=== PATIENT | female | born 1940 | race African-American/Black ===

== ENCOUNTER 2018-05-03 21:46 | Inpatient (IN) | payer MEDICARE, OTHER ==
[~2018-05-03] VITALS: Ht 162.6 cm; Wt 87.3 kg
[~2018-05-03 21:46] MED LIST: CARVEDILOL3.125 MG ORAL; FERROUS SULFAT325 MG ORAL; FUROSEMIDE20 M1 ORAL; LORATADINE10 M1 PO; OMEPRAZOLE20 M3 ORAL; RIFAMPIN300 MG PO; SIMVASTATIN40 MG ORAL; WARFARIN SODIUM10 MG ORAL; WARFARIN SODIUM4 MG ORAL
--- NOTE | 2018-05-03 21:51 | Emergency Room Report ---
History of Present Illness General Chief Complaint: Dyspnea/Respdistress Source: Patient Present Illness HPI Patient is an 78-year-old female sent in from [facility] after increased difficulty breathing. Patient had prior history of dialysis as well as COPD. She reportedly became increasing short of breath today. Patient was noted to be satting well. EMS. The patient was noted to have dialysis yesterday. Allergies: Coded Allergies: No Known Allergies (Verified , 01/09/09) Patient History Past Medical History: see triage record Last Menstrual Period: n/a Reviewed Nursing Documentation: PMH: Agreed; PSxH: Agreed Nursing Documentation-PMH Past Medical History: No History, Except For Hx Hypertension: Yes Hx COPD: Yes Hx Cancer: No Hx Dialysis: Yes - AV fistula, ESRD Hx Neurological Problems: No Review of Systems All Other Systems: negative except mentioned in HPI Physical Exam Vital Signs Date Time Temp Pulse Resp B/P (MAP) Pulse Ox O2 Delivery O2 Flow Rate FiO2 05/03/18 21:40 99.2 132 22 146/92 94 Room Air 99.1 Sp02 EP Interpretation: reviewed, normal General Appearance: normal inspection, alert, obese, Chronically Ill Head: atraumatic ENT: normal ENT inspection, hearing grossly normal, normal voice Neck: normal inspection, supple, no bony tend, limited range of motion Respiratory: normal inspection, normal breath sounds, wheezing Cardiovascular #1: regular rate, rhythm, edema Gastrointestinal: normal inspection, normal bowel sounds, non tender, soft, no guarding, no hernia Genitourinary: no CVA tenderness Musculoskeletal: normal inspection, back normal, normal range of motion Neurologic: normal inspection, alert, responsive, motor weakness - right lower extremity Psychiatric: normal inspection, judgement/insight normal, mood/affect normal Skin: normal inspection, no rash Medical Decision Making Diagnostic Impression: Primary Impression: COPD exacerbation Additional Impression: ESRD on dialysis ER Course patient presented for shortness of breath. Differential included but was not limited to anemia, pneumonia, pneumothorax, myocardial infarction, pericardial effusion, congestive heart failure, acidosis. Because of complexity of patient' s case laboratory testing and imaging studies were ordered. Laboratory testing showed evidence of renal disease.The patient was given breathing treatments. She started on IV steroids. The patient is noted be on dialysis. Chest x-ray one view interpreted by me showed cardiomegaly without evident effusion or infiltrate. Dr. Leonardo was contacted due to care physician. This report is dictated with [employer] developer software which may occasionally lead to discrepancies related to use of this software. Labs Test 05/03/18 21:55 White Blood Count 5.8 K/UL (4.8-10.8) Red Blood Count 2.99 M/UL (4.20-5.40) Hemoglobin 8.7 G/DL (12.0-16.0) Hematocrit 28.7 % (37.0-47.0) Mean Corpuscular Volume 96 FL (80-99) Mean Corpuscular Hemoglobin 29.1 PG (27.0-31.0) Mean Corpuscular Hemoglobin Concent 30.3 G/DL (32.0-36.0) Red Cell Distribution Width 15.1 % (11.6-14.8) Platelet Count 138 K/UL (150-450) Mean Platelet Volume 7.2 FL (6.5-10.1) Neutrophils (%) (Auto) 55.8 % (45.0-75.0) Lymphocytes (%) (Auto) 24.6 % (20.0-45.0) Monocytes (%) (Auto) 12.7 % (1.0-10.0) Eosinophils (%) (Auto) 5.5 % (0.0-3.0) Basophils (%) (Auto) 1.3 % (0.0-2.0) Prothrombin Time 11.9 SEC (9.30-11.50) Prothromb Time International Ratio 1.1 (0.9-1.1) Activated Partial Thromboplast Time 31 SEC (23-33) Sodium Level 138 MMOL/L (136-145) Potassium Level 5.1 MMOL/L (3.5-5.1) Chloride Level 103 MMOL/L (98-107) Carbon Dioxide Level 27 MMOL/L (21-32) Anion Gap 8 mmol/L (5-15) Blood Urea Nitrogen 24 mg/dL (7-18) Creatinine 4.5 MG/DL (0.55-1.30) Estimat Glomerular Filtration Rate mL/min (>60) Glucose Level 207 MG/DL (74-106) Lactic Acid Level 1.90 mmol/L (0.4-2.0) Calcium Level 8.6 MG/DL (8.5-10.1) Total Bilirubin 0.9 MG/DL (0.2-1.0) Aspartate Amino Transf (AST/SGOT) 30 U/L (15-37) Alanine Aminotransferase (ALT/SGPT) 12 U/L (12-78) Alkaline Phosphatase 375 U/L (46-116) Total Creatine Kinase 42 U/L (26-308) Creatine Kinase MB 1.2 NG/ML (0.0-3.6) Creatine Kinase MB Relative Index 2.8 Troponin I 0.267 ng/mL (0.000-0.056) Total Protein 6.8 G/DL (6.4-8.2) Albumin 2.4 G/DL (3.4-5.0) Globulin 4.4 g/dL Albumin/Globulin Ratio 0.5 (1.0-2.7) Last Vital Signs Date Time Temp Pulse Resp B/P (MAP) Pulse Ox O2 Delivery O2 Flow Rate FiO2 05/03/18 21:40 99.2 132 22 146/92 94 Room Air 99.1 Status: improved Disposition: HOME, SELF-CARE Condition: Stable Darryl Koenig MD May 03, 2018 21:51
[2018-05-03 22:00] VITALS: BP 144/80
[2018-05-03] MEDS ORDERED: Albuterol/Ipratropium 3ml neb HHN ONE (22:00)
[2018-05-03 22:22] LABS: BASOPHILS % (AUTO) 1.3 % (0.0-2.0); EOSINOPHILS % (AUTO) 5.5 % (0.0-3.0); HEMATOCRIT 28.7 % (37.0-47.0); HEMOGLOBIN 8.7 G/DL (12.0-16.0); LYMPHOCYTES % (AUTO) 24.6 % (20.0-45.0); MEAN CORPUSCULAR VOLUME 96 FL (80-99); MONOCYTES % (AUTO) 12.7 % (1.0-10.0); NEUTROPHILS % (AUTO) 55.8 % (45.0-75.0); PLATELET COUNT 138 K/UL (150-450); RED BLOOD COUNT 2.99 M/UL (4.20-5.40); RED CELL DISTRIBUTION WIDTH 15.1 % (11.6-14.8); WHITE BLOOD COUNT 5.8 K/UL (4.8-10.8)
[2018-05-03 22:26] LABS: INR 1.1 (0.9-1.1)
[2018-05-03 22:29] LABS: ANION GAP 8 mmol/L (5-15); BLOOD UREA NITROGEN 24 mg/dL (7-18); CALCIUM 8.6 MG/DL (8.5-10.1); CARBON DIOXIDE 27 MMOL/L (21-32); CHLORIDE 103 MMOL/L (98-107); CREATININE 4.5 MG/DL (0.55-1.30); POTASSIUM 5.1 MMOL/L (3.5-5.1); SODIUM 138 MMOL/L (136-145)
[2018-05-03 22:44] LABS: ALANINE AMINOTRANSFERASE 12 U/L (12-78); ALBUMIN 2.4 G/DL (3.4-5.0); ALBUMIN/GLOBULIN RATIO 0.5 (1.0-2.7); ALKALINE PHOSPHATASE 375 U/L (46-116); ASPARTATE AMINO TRANSFERASE 30 U/L (15-37); BILIRUBIN,TOTAL 0.9 MG/DL (0.2-1.0); CKMB 1.2 NG/ML (0.0-3.6); CREATINE KINASE 42 U/L (26-308)
[2018-05-03] MEDS ORDERED: DUONEB 0.5-3(2.53 ML HHN (23:54)
[2018-05-03] MEDS ORDERED: NORCO 5-325 TA1 EACH ORAL (23:54)
[2018-05-03] MEDS ORDERED: NEPHROVITE1 TAB ORAL (23:54)
[2018-05-04] VITALS (8 sets, daily range): BP systolic 90–138; BP diastolic 58–86
[2018-05-04] MEDS ORDERED: Albuterol ud Inhalation HHN ONE (00:15)
[2018-05-04] MEDS ORDERED: Ipratropium 0.02% Inh Soln 2.5ml UD HHN PRN (03:15)
[2018-05-04] MEDS: Albuterol/Ipratropium 3ml neb HHN SCH ×2 (08:10→19:00)
[2018-05-04] MEDS ORDERED: Heparin Sod 1000 units/ml 10ml IV SCH (09:00)
[2018-05-04] MEDS ORDERED: Heparin 1000 units/ml 1ml Vial INJ SCH (09:00)
[2018-05-04] MEDS: Norco 5mg/325mg tab ORAL PRN ×2 (09:25→22:39)
[2018-05-04] MEDS: Nephrovite tab (Rena-Vite) ORAL SCH (09:28)
--- NOTE | 2018-05-04 11:20 | Diagnostic Imaging Report ---
Indication: Shortness of breath Technique: One view of the chest Comparison: 03/03/2010 Findings: Interim placement of a left chest unifocal AICD. Interim placement of right jugular tunneled dialysis catheter. Interim development of bilateral pleural effusions, left greater than right. There is bilateral interstitial edema and left perihilar atelectatic change. The heart is enlarged, apparently more so than on the prior study. Impression: Cardiomegaly with evidence of congestive heart failure and bilateral pleural effusions Pacemaker and tunneled dialysis catheter, new since prior exam of 2009
--- NOTE | 2018-05-04 12:49 | Consultation ---
Consult Note Consult Note 78-year-old female sent in from nursing with increased difficulty breathing. patient has dialysis as well as COPD. Patient with increasing short of breath. Patient currently undergoing dialysis yesterday. patient with prior history of pleural effusions. Allergies: No Known Allergies (Verified Allergy, Mild, 01/09/09) Past Medical History: COPD, ESRD, pleural effusion, AV fistula Past surgical history: AV fistula Medications/allergies: reviewed Physical WDWN NAD reduced breath sounds bilaterally without rhonchi or wheeze [id number] without RG; murmur NABS nontender no HSM no CC; mild edema nonfocal Labs Test 05/03/18 21:55 White Blood Count 5.8 K/UL (4.8-10.8) Red Blood Count 2.99 M/UL (4.20-5.40) Hemoglobin 8.7 G/DL (12.0-16.0) Hematocrit 28.7 % (37.0-47.0) Mean Corpuscular Volume 96 FL (80-99) Mean Corpuscular Hemoglobin 29.1 PG (27.0-31.0) Mean Corpuscular Hemoglobin Concent 30.3 G/DL (32.0-36.0) Red Cell Distribution Width 15.1 % (11.6-14.8) Platelet Count 138 K/UL (150-450) Mean Platelet Volume 7.2 FL (6.5-10.1) Neutrophils (%) (Auto) 55.8 % (45.0-75.0) Lymphocytes (%) (Auto) 24.6 % (20.0-45.0) Monocytes (%) (Auto) 12.7 % (1.0-10.0) Eosinophils (%) (Auto) 5.5 % (0.0-3.0) Basophils (%) (Auto) 1.3 % (0.0-2.0) Prothrombin Time 11.9 SEC (9.30-11.50) Prothromb Time International Ratio 1.1 (0.9-1.1) Activated Partial Thromboplast Time 31 SEC (23-33) Sodium Level 138 MMOL/L (136-145) Potassium Level 5.1 MMOL/L (3.5-5.1) Chloride Level 103 MMOL/L (98-107) Carbon Dioxide Level 27 MMOL/L (21-32) Anion Gap 8 mmol/L (5-15) Blood Urea Nitrogen 24 mg/dL (7-18) Creatinine 4.5 MG/DL (0.55-1.30) Estimat Glomerular Filtration Rate mL/min (>60) Glucose Level 207 MG/DL (74-106) Lactic Acid Level 1.90 mmol/L (0.4-2.0) Calcium Level 8.6 MG/DL (8.5-10.1) Total Bilirubin 0.9 MG/DL (0.2-1.0) Aspartate Amino Transf (AST/SGOT) 30 U/L (15-37) Alanine Aminotransferase (ALT/SGPT) 12 U/L (12-78) Alkaline Phosphatase 375 U/L (46-116) Total Creatine Kinase 42 U/L (26-308) Creatine Kinase MB 1.2 NG/ML (0.0-3.6) Creatine Kinase MB Relative Index 2.8 Troponin I 0.267 ng/mL (0.000-0.056) Total Protein 6.8 G/DL (6.4-8.2) Albumin 2.4 G/DL (3.4-5.0) Globulin 4.4 g/dL Albumin/Globulin Ratio 0.5 (1.0-2.7) IMPRESSION COPD CHF pulmonary edema pleural effusions bilateral respiratory failure hypoxemia demand ischemia anemia PLAN HD ultrafiltrate respiratory care hold steroids monitor as is for now close follow up of imaging chest Xray reviewed impression, plan, and exam edited and reviewed in detail care discussed with Mohsen Kraft MD May 04, 2018 12:49
[2018-05-04] MEDS: Heparin 5000 units/ml inj SUBQ SCH ×2 (13:01→22:41)
--- NOTE | 2018-05-04 16:15 | History and Physical Report ---
DATE OF ADMISSION: 05/03/2018 CHIEF COMPLAINTS: Shortness of breath. HISTORY OF PRESENT ILLNESS: This is an 78-year-old female, who has an unfortunate combination of congestive heart failure, cardiomyopathy, and end-stage renal failure, who was transferred via 911 from a long term last night to this hospital's emergency department with shortness of breath. She was transferred during the late hours of the night. The patient has had her dialysis on Tuesday, two days ago. The patient usually is admitted to [facility]. PAST MEDICAL HISTORY: 1. End-stage renal failure. 2. Severe cardiomyopathy with ejection fraction in the low 20s. 3. Anemia of chronic kidney disease. 4. Recurrent DVTs. 5. Chronic atrial fibrillation. 6. Coronary artery disease. 7. Crystal arthropathy. 8. class 4 congestive heart failure. 9. Severe peripheral neuropathy. 10. Type 2 diabetes mellitus. 11. Chronic obstructive pulmonary disease. MEDICATIONS: Coreg, DuoNeb, Nephro-Gabriela, Erbacon p.r.n., Epogen on dialysis, oral iron, omeprazole, and simvastatin. ALLERGIES: No known drug allergies. FAMILY HISTORY: Unremarkable. SOCIAL HISTORY: She lives in a long term. HABITS: She is nonsmoker and nondrinker. There is no history of illicit drug abuse. REVIEW OF SYSTEMS: HEENT: Hearing and eyesight are normal. ENDOCRINE: Significant for secondary hyperparathyroidism. She has also type 2 diabetes mellitus. MUSCULOSKELETAL: She has a history of crystal-induced joint disease. CARDIAC: She has severe ischemic cardiomyopathy. NEUROLOGIC: She has history of severe peripheral neuropathy. RESPIRATORY: She has chronic obstructive pulmonary disease. PHYSICAL EXAMINATION: GENERAL: This is an elderly female, who is in no acute distress. VITAL SIGNS: Blood pressure 113/74, pulse 67 and regular, respirations 20, and temperature 97.7. HEENT: The head is normocephalic and atraumatic. Pupils are equal, round, and reactive to light and accommodation consensually. NECK: Supple. Trachea midline. There was no lymphadenopathy or thyromegaly. LUNGS: Bilateral few wheezes. HEART: Regular rate and rhythm without rubs, murmurs, or gallops. ABDOMEN: Soft and nontender. Bowel sounds were active. EXTREMITIES: No clubbing. She has 4+ right leg edema and 3+ right arm edema. NEUROLOGIC: She is alert and oriented x4. Cranial nerves II through XII intact. LABORATORY AND ANCILLARY DATA: Potassium 5.1, sodium 138, BUN 24, and creatinine 4.5. Alkaline phosphatase 375. Albumin 2.4. Troponin level is 0.267. INR 1.1. Hematocrit 28.7, otherwise CBC within normal limits. Chest x-ray reported as a mild congestive heart failure with bilateral pleural effusions. ASSESSMENT: 1. Chronic obstructive pulmonary disease exacerbation. 2. Congestive heart failure. 3. End-stage renal failure. 4. Severe cardiomyopathy with ejection fraction in the low 20s. 5. Anemia of chronic kidney disease. 6. Recurrent DVTs. 7. Chronic atrial fibrillation. 8. Coronary artery disease. 9. Crystal arthropathy. 10. NYHA class 4 congestive heart failure. 11. Severe peripheral neuropathy. 12. Type 2 diabetes mellitus. PLAN: 1. Hemodialysis today with ultrafiltration. 2. Respiratory treatment. 3. Continue long term medications. 4. Rule out acute myocardial ischemia. Cristy Jones M.D. DR: GE[place] JOB#: [id number] CC: LASHONDA
--- NOTE | 2018-05-04 21:23 | Cardiology Progress Note ---
Subjective Subjective [id number] Objective Last 24 Hour Vital Signs Date Time Temp Pulse Resp B/P (MAP) Pulse Ox O2 Delivery O2 Flow Rate FiO2 05/04/18 19:29 92 22 95 Nasal Cannula 2.0 28 05/04/18 19:29 Nasal Cannula 2.0 28 05/04/18 18:00 Nasal Cannula 2.0 05/04/18 16:00 97.9 66 23 90/58 (69) 100 97.9 05/04/18 16:00 67 05/04/18 12:00 73 05/04/18 12:00 98.2 67 17 91/58 (69) 98 98.2 05/04/18 10:24 97.7 05/04/18 09:28 83 138/86 05/04/18 09:25 97.7 05/04/18 09:00 Nasal Cannula 2.0 05/04/18 08:10 Nasal Cannula 2.0 28 05/04/18 08:10 Nasal Cannula 2.0 28 05/04/18 08:00 90 05/04/18 08:00 98.2 83 19 138/86 (103) 98.2 05/04/18 05:01 Nasal Cannula 2.0 05/04/18 04:00 91 05/04/18 04:00 97.7 67 20 113/74 (87) 97 97.7 05/04/18 03:00 97.6 65 20 111/71 (84) 95 97.6 05/04/18 02:00 36.40192 81 22 109/66 96 Room Air 21 208.4 05/04/18 02:00 98.0 81 22 109/66 96 Room Air 21 98.0 05/04/18 00:22 89 22 99 Room Air 21 05/04/18 00:17 94 26 94 Room Air 21 05/04/18 00:00 98.0 88 20 138/78 95 Room Air 21 98.0 05/03/18 22:03 82 20 98 Room Air 21 05/03/18 22:00 81 20 Room Air 21 05/03/18 22:00 99.1 81 20 144/80 95 Room Air 21 99.1 05/03/18 21:57 86 22 95 Room Air 21 05/03/18 21:56 86 22 Room Air 05/03/18 21:40 99.2 132 22 146/92 94 Room Air 99.1 Intake and Output 05/03/18 05/04/18 19:00 07:00 Intake Total 240 ml Balance 240 ml Intake Oral 240 ml # Voids 1 Laboratory Tests Test 05/03/18 21:55 White Blood Count 5.8 K/UL (4.8-10.8) Red Blood Count 2.99 M/UL (4.20-5.40) L Hemoglobin 8.7 G/DL (12.0-16.0) L Hematocrit 28.7 % (37.0-47.0) L Mean Corpuscular Volume 96 FL (80-99) Mean Corpuscular Hemoglobin 29.1 PG (27.0-31.0) Mean Corpuscular Hemoglobin Concent 30.3 G/DL (32.0-36.0) L Red Cell Distribution Width 15.1 % (11.6-14.8) H Platelet Count 138 K/UL (150-450) L Mean Platelet Volume 7.2 FL (6.5-10.1) Neutrophils (%) (Auto) 55.8 % (45.0-75.0) Lymphocytes (%) (Auto) 24.6 % (20.0-45.0) Monocytes (%) (Auto) 12.7 % (1.0-10.0) H Eosinophils (%) (Auto) 5.5 % (0.0-3.0) H Basophils (%) (Auto) 1.3 % (0.0-2.0) Prothrombin Time 11.9 SEC (9.30-11.50) H Prothromb Time International Ratio 1.1 (0.9-1.1) Activated Partial Thromboplast Time 31 SEC (23-33) Sodium Level 138 MMOL/L (136-145) Potassium Level 5.1 MMOL/L (3.5-5.1) Chloride Level 103 MMOL/L (98-107) Carbon Dioxide Level 27 MMOL/L (21-32) Anion Gap 8 mmol/L (5-15) Blood Urea Nitrogen 24 mg/dL (7-18) H Creatinine 4.5 MG/DL (0.55-1.30) H Estimat Glomerular Filtration Rate mL/min (>60) Glucose Level 207 MG/DL (74-106) H Lactic Acid Level 1.90 mmol/L (0.4-2.0) Calcium Level 8.6 MG/DL (8.5-10.1) Total Bilirubin 0.9 MG/DL (0.2-1.0) Aspartate Amino Transf (AST/SGOT) 30 U/L (15-37) Alanine Aminotransferase (ALT/SGPT) 12 U/L (12-78) Alkaline Phosphatase 375 U/L (46-116) H Total Creatine Kinase 42 U/L (26-308) Creatine Kinase MB 1.2 NG/ML (0.0-3.6) Creatine Kinase MB Relative Index 2.8 Troponin I 0.267 ng/mL (0.000-0.056) Total Protein 6.8 G/DL (6.4-8.2) Albumin 2.4 G/DL (3.4-5.0) L Globulin 4.4 g/dL Albumin/Globulin Ratio 0.5 (1.0-2.7) L Megan Arthur MD May 04, 2018 21:23
[2018-05-05] VITALS: BP 95/52
[2018-05-05] MEDS: Albuterol/Ipratropium 3ml neb HHN SCH ×3 (00:58→13:22)
--- NOTE | 2018-05-05 03:45 | Consultation ---
DATE OF CONSULTATION: 05/04/2018 CARDIOLOGY CONSULTATION CONSULTING PHYSICIAN: Megan Arthur M.D. REFERRING PHYSICIAN: Cristy Leonardo M.D. PATIENT IDENTIFYING DATA: This is an 78-year-old black female. REASON FOR EVALUATION: Congestive heart failure. HISTORY OF PRESENT ILLNESS: The patient presented with shortness of breath, wheezing, and cough. She is well known to me, very unfortunate 78-year-old female with end-stage dilated cardiomyopathy with bilateral right and left heart failure and pulmonary edema and also end-stage renal disease. Her cardiomyopathy is nonischemic. She was started on dialysis about 2 months ago when her creatinine started going up. She also has history of abdominal wall hematomas and GI bleed. She had history of embolic event to her leg from atrial fibrillation. She has ICD implanted and she has PermCath on the right side. MEDICATIONS: Carvedilol, Epogen, and pain medications. PAST MEDICAL HISTORY: In addition to the above, significant for crystal arthropathy, anemia, history of diabetes, and COPD. She is in permanent atrial fibrillation. ALLERGIES: Not reported. HABITS: No history of drinking, smoking, or drug abuse. SOCIAL HISTORY: She lives at skilled nursing now. REVIEW OF SYSTEMS: Significant for shortness of breath, wheezing, cough, orthopnea, and generalized edema. PHYSICAL EXAMINATION: GENERAL: This is elderly female, looks really ill. VITAL SIGNS: Blood pressure 90/60, heart rate is 70, oxygen saturation is on 2 liters of oxygen 92%, and temperature 98.2 degrees. HEENT: PERRLA. EOMI. NECK: Her neck veins are very distended. Carotid upstroke is palpable without bruit. LUNGS: She has wheezing and crackles especially posteriorly. HEART: Irregular, extremely distant sounds. Defibrillator site is intact. BREASTS: She has dependent edema. ABDOMEN: Distended with ascites and enlarged liver. EXTREMITIES: She has anasarca around her arms and legs, so her arms and legs have dependent edema. Distal pulses are very diminished. NEUROLOGICAL: She appears to be totally appropriate and without lateralized neurologic deficit. LABORATORY AND DIAGNOSTIC DATA: Her ECG shows atrial fibrillation with very low voltage and intraventricular conduction delay, intermittent alternating with left bundle-branch block. Chest x-ray showed congestive heart failure. The laboratory data significant for WBC 5.8, hemoglobin 8.7, and platelets 138. Creatinine 4.5 and BUN is 24. Lactic acid 1.9. Troponin 0.267. Albumin 2.4. INR is 1.1. IMPRESSION AND RECOMMENDATION: 1. Congestive heart failure, acute on chronic, systolic due to dilated cardiomyopathy, end-stage severe dilated, nonischemic. 2. Atrial fibrillation, permanent, rate controlled, but she is not anticoagulated due to history of GI bleed and also history of abdominal wall hematoma. 3. She also has severe generalized edema and she makes very little urine, so the dialysis also ____ ultrafiltration to drain the fluid out. Unfortunately, this patient in the past did not tolerate GENEVIEVE inhibitors due to hypotension, could not tolerate Entresto due to hypotension and medical management. The prognosis of this patient unfortunately is grave. Thank you very much for your referral. Megan Arthur M.D. DR: CARY JOB#: [id number] CC:
[2018-05-05 04:00] VITALS: BP 96/65
[2018-05-05 08:00] VITALS: BP 98/70
--- NOTE | 2018-05-05 08:00 | Nephrology Progress Note ---
Assessment/Plan Plan Labs reviewed. Trop 0.2 reflects ESRD. Known from before. COPD Exacerbation + CHF resolved + improved with HD yesterday. DC to SNF. Anemia of CKD stable. Has scheduled HD tomorrow. Subjective Subjective No new c/o. SOB resolved. Objective Objective Last 24 Hour Vital Signs Date Time Temp Pulse Resp B/P (MAP) Pulse Ox O2 Delivery O2 Flow Rate FiO2 05/05/18 07:46 84 20 100 Nasal Cannula 2.0 28 05/05/18 07:35 78 20 100 Nasal Cannula 2.0 28 05/05/18 04:00 97.2 57 20 96/65 (75) 99 97.2 05/05/18 04:00 84 05/05/18 00:58 99 20 95 Nasal Cannula 2.0 28 05/05/18 00:58 Nasal Cannula 2.0 28 05/05/18 00:00 98.1 89 24 95/52 (66) 99 98.1 05/05/18 00:00 82 05/04/18 23:29 98 20 99 Nasal Cannula 2.0 28 05/04/18 23:20 99 24 99 Nasal Cannula 2.0 28 05/04/18 21:05 Nasal Cannula 2.0 05/04/18 21:00 Nasal Cannula 2.0 05/04/18 21:00 80 102/64 05/04/18 20:00 98.2 69 26 107/66 (80) 100 98.2 05/04/18 20:00 88 05/04/18 19:29 92 22 95 Nasal Cannula 2.0 28 05/04/18 19:29 Nasal Cannula 2.0 28 05/04/18 18:00 Nasal Cannula 2.0 05/04/18 16:00 97.9 66 23 90/58 (69) 100 97.9 05/04/18 16:00 67 05/04/18 12:00 73 05/04/18 12:00 98.2 67 17 91/58 (69) 98 98.2 05/04/18 10:24 97.7 05/04/18 09:28 83 138/86 05/04/18 09:25 97.7 05/04/18 09:00 Nasal Cannula 2.0 05/04/18 08:10 Nasal Cannula 2.0 28 05/04/18 08:10 Nasal Cannula 2.0 28 05/04/18 08:00 90 05/04/18 08:00 98.2 83 19 138/86 (103) 98.2 Intake and Output 05/04/18 05/05/18 19:00 07:00 Intake Total 100 ml Output Total 4360 ml Balance -4260 ml Intake Oral 100 ml Output Hemodialysis UF 4360 ml # Voids 2 # Bowel Movements 1 Height (Feet): 5 Height (Inches): 4.00 Weight (Pounds): 192 Objective CV Irr/Irr Lungs CTA Abd SNT BS + E less edema Cristy Jones MD May 05, 2018 08:00
[2018-05-05] MEDS: Nephrovite tab (Rena-Vite) ORAL SCH (08:42)
[2018-05-05] MEDS: Heparin 5000 units/ml inj SUBQ SCH (09:00)
--- NOTE | 2018-05-05 10:43 | Pulmonology Progress Note ---
Assessment/Plan Assessment/Plan Pulmonary Progress Note 78-year-old female sent in from nursing with increased difficulty breathing. patient has dialysis as well as COPD. Patient with increasing short of breath. CKD on dialysis. Has prior history of pleural effusions. H/o CHF, COPD Allergies: No Known Allergies (Verified Allergy, Mild, 01/09/09) Past Medical History: COPD, ESRD, pleural effusion, AV fistula Past surgical history: AV fistula Medications/allergies: reviewed Physical WDWN NAD reduced breath sounds bilaterally without rhonchi or wheeze [id number] without RG; murmur NABS nontender no HSM no CC; mild edema nonfocal Labs Test 05/03/18 21:55 White Blood Count 5.8 K/UL (4.8-10.8) Red Blood Count 2.99 M/UL (4.20-5.40) Hemoglobin 8.7 G/DL (12.0-16.0) Hematocrit 28.7 % (37.0-47.0) Mean Corpuscular Volume 96 FL (80-99) Mean Corpuscular Hemoglobin 29.1 PG (27.0-31.0) Mean Corpuscular Hemoglobin Concent 30.3 G/DL (32.0-36.0) Red Cell Distribution Width 15.1 % (11.6-14.8) Platelet Count 138 K/UL (150-450) Mean Platelet Volume 7.2 FL (6.5-10.1) Neutrophils (%) (Auto) 55.8 % (45.0-75.0) Lymphocytes (%) (Auto) 24.6 % (20.0-45.0) Monocytes (%) (Auto) 12.7 % (1.0-10.0) Eosinophils (%) (Auto) 5.5 % (0.0-3.0) Basophils (%) (Auto) 1.3 % (0.0-2.0) Prothrombin Time 11.9 SEC (9.30-11.50) Prothromb Time International Ratio 1.1 (0.9-1.1) Activated Partial Thromboplast Time 31 SEC (23-33) Sodium Level 138 MMOL/L (136-145) Potassium Level 5.1 MMOL/L (3.5-5.1) Chloride Level 103 MMOL/L (98-107) Carbon Dioxide Level 27 MMOL/L (21-32) Anion Gap 8 mmol/L (5-15) Blood Urea Nitrogen 24 mg/dL (7-18) Creatinine 4.5 MG/DL (0.55-1.30) Estimat Glomerular Filtration Rate mL/min (>60) Glucose Level 207 MG/DL (74-106) Lactic Acid Level 1.90 mmol/L (0.4-2.0) Calcium Level 8.6 MG/DL (8.5-10.1) Total Bilirubin 0.9 MG/DL (0.2-1.0) Aspartate Amino Transf (AST/SGOT) 30 U/L (15-37) Alanine Aminotransferase (ALT/SGPT) 12 U/L (12-78) Alkaline Phosphatase 375 U/L (46-116) Total Creatine Kinase 42 U/L (26-308) Creatine Kinase MB 1.2 NG/ML (0.0-3.6) Creatine Kinase MB Relative Index 2.8 Troponin I 0.267 ng/mL (0.000-0.056) Total Protein 6.8 G/DL (6.4-8.2) Albumin 2.4 G/DL (3.4-5.0) Globulin 4.4 g/dL Albumin/Globulin Ratio 0.5 (1.0-2.7) IMPRESSION COPD CHF pulmonary edema pleural effusions bilateral respiratory failure hypoxemia demand ischemia anemia PLAN HD per renal respiratory care hold steroids monitor as is for now close follow up of imaging chest X raynoted impression, plan, and exam edited and reviewed in detail care discussed with RN Subjective ROS Limited/Unobtainable: No Constitutional: Reports: no symptoms Allergies: Coded Allergies: No Known Allergies (Verified , 01/09/09) Objective Last 24 Hour Vital Signs Date Time Temp Pulse Resp B/P (MAP) Pulse Ox O2 Delivery O2 Flow Rate FiO2 05/05/18 10:38 Nasal Cannula 2.0 28 05/05/18 10:38 97 Nasal Cannula 2.0 28 05/05/18 10:38 86 20 Room Air 21 05/05/18 09:00 Nasal Cannula 2.0 05/05/18 08:36 92 98/70 05/05/18 08:00 82 05/05/18 08:00 98.6 92 20 98/70 (79) 98 98.6 05/05/18 07:46 84 20 100 Nasal Cannula 2.0 28 05/05/18 07:35 78 20 100 Nasal Cannula 2.0 28 05/05/18 04:00 97.2 57 20 96/65 (75) 99 97.2 05/05/18 04:00 84 05/05/18 00:58 99 20 95 Nasal Cannula 2.0 28 05/05/18 00:58 Nasal Cannula 2.0 28 05/05/18 00:00 98.1 89 24 95/52 (66) 99 98.1 05/05/18 00:00 82 05/04/18 23:29 98 20 99 Nasal Cannula 2.0 28 05/04/18 23:20 99 24 99 Nasal Cannula 2.0 28 05/04/18 21:05 Nasal Cannula 2.0 05/04/18 21:00 Nasal Cannula 2.0 05/04/18 21:00 80 102/64 05/04/18 20:00 98.2 69 26 107/66 (80) 100 98.2 05/04/18 20:00 88 05/04/18 19:29 92 22 95 Nasal Cannula 2.0 28 05/04/18 19:29 Nasal Cannula 2.0 28 05/04/18 18:00 Nasal Cannula 2.0 05/04/18 16:00 97.9 66 23 90/58 (69) 100 97.9 05/04/18 16:00 67 05/04/18 12:00 73 05/04/18 12:00 98.2 67 17 91/58 (69) 98 98.2 Intake and Output 05/04/18 05/05/18 19:00 07:00 Intake Total 100 ml Output Total 4360 ml Balance -4260 ml Intake Oral 100 ml Output Hemodialysis UF 4360 ml # Voids 2 # Bowel Movements 1 Microbiology Date/Time Source Procedure Growth Status 05/03/18 22:00 Blood Blood Culture - Preliminary NO GROWTH AFTER 24 HOURS Resulted 05/03/18 21:45 Blood Blood Culture - Preliminary NO GROWTH AFTER 24 HOURS Resulted 05/04/18 01:50 Rectum VRE Culture Pending Resulted 05/04/18 01:50 Rectum - Preliminary Resulted Current Medications Medications (Trade) Dose Ordered Sig/Toby Route PRN Reason Start Time Stop Time Status Last Admin Dose Admin Acetaminophen/ Hydrocodone Bitart ([place] 5/325) 1 tab Q6H PRN ORAL For Pain 05/04/18 03:15 05/11/18 03:14 05/04/18 22:39 Albuterol/ Ipratropium (Albuterol/ Ipratropium) 3 ml Q6HRT HHN 05/04/18 07:00 05/09/18 06:59 05/05/18 07:34 Carvedilol (Coreg) 3.125 mg EVERY 12 HOURS ORAL 05/04/18 09:00 06/03/18 08:59 05/04/18 09:28 Epoetin Rodo (Procrit (for ESRD on dialysis)) 8,000 units TUE-TUE-TUE SUBQ 05/05/18 21:00 06/04/18 20:59 Heparin Sodium (Porcine) (Heparin 5000 units/ml) 5,000 units EVERY 12 HOURS SUBQ 05/04/18 11:00 06/03/18 10:59 05/04/18 22:41 Ipratropium [place] (Atrovent) 500 mcg Q4H PRN HHN Shortness of Breath 05/04/18 03:15 05/09/18 03:14 05/04/18 23:30 Vitamin B Complex/ Vit C/Folic Acid (Nephrovite) 1 tab DAILY ORAL 05/04/18 09:00 06/03/18 08:59 05/05/18 08:42 Paramjit Esparza MD May 05, 2018 10:43
[2018-05-05 12:00] VITALS: BP 105/63
[2018-05-05] MEDS ORDERED: Vancomycin 1 GM in D5W 275 ML IVPB ONE (14:00)
--- NOTE | 2018-05-05 15:37 | Cardiology Report ---
APPROVED REPORT EXAM: Two-dimensional and M-mode echocardiogram with Doppler and color Doppler. INDICATION Congestive Heart Failure M-Mode DIMENSIONS IVSd1.2 (0.7-1.1cm)Left Atrium (MM)5.0 (1.6-4.0cm) LVDd5.3 (3.5-5.6cm)Aortic Root2.7 (2.0-3.7cm) PWd1.7 (0.7-1.1cm)Aortic Cusp Exc.1.3 (1.5-2.0cm) LVDs4.7 (2.5-4.0cm) PWs1.8 cm Technically difficult study due to poor acoustical windows. Normal left ventricular chamber size. Global left ventricular hypokinesis. Worse in mid anterior septum. Left ventricular ejection fraction estimated to be 20-25 %. No evidence of left ventricular hypertrophy. Small posterior pericardial effusion. Large pleural effusion. Mild left atrial enlargement by 2D. Moderate to severe right atrial and right ventricle enlargement by 2D. Focal aortic valve sclerosis with adequate cusp excursion. Mildly thickened mitral valve leaflets with normal excursion. Mild mitral annulus and aortic root calcification. Pulmonic valve is well visualized. Normal tricuspid valve structure. IVC is not obtainable. Probable pacemaker wire present in the right side chambers. A color flow and spectral Doppler study was performed and revealed: No aortic regurgitation. Moderate mitral regurgitation. Mitral diastolic velocities suggest reduced left ventricular relaxation c/w diastolic dysfunction grade 3. Severe tricuspid regurgitation. Tricuspid systolic velocities suggests peak right ventricular systolic pressure of 43 mmHg Consistent with mild pulmonary hypertension. Pulmonic regurgitation present.
[2018-05-05 16:04] VITALS: BP 108/72
[2018-05-05] MEDS ORDERED: Epogen (for ESRD on dialysis) SUBQ SCH (21:00)
--- NOTE | 2018-05-05 21:56 | Cardiology Progress Note ---
Assessment/Plan Assessment/Plan severe, end stage heart failure atrial fibrillation on HD prognosis is very poor Subjective Subjective No significant changes she is resting, weak, and dyspnea is slighlty better Objective Last 24 Hour Vital Signs Date Time Temp Pulse Resp B/P (MAP) Pulse Ox O2 Delivery O2 Flow Rate FiO2 05/05/18 16:05 80 05/05/18 16:04 97.6 95 20 108/72 (84) 98 97.6 05/05/18 13:37 87 20 100 Nasal Cannula 2.0 28 05/05/18 13:24 81 18 100 Nasal Cannula 2.0 28 05/05/18 12:00 90 05/05/18 12:00 98.0 79 20 105/63 (77) 98 98.0 05/05/18 10:38 Nasal Cannula 2.0 28 05/05/18 10:38 97 Nasal Cannula 2.0 28 05/05/18 10:38 86 20 Room Air 21 05/05/18 09:00 Nasal Cannula 2.0 05/05/18 08:36 92 98/70 05/05/18 08:00 82 05/05/18 08:00 98.6 92 20 98/70 (79) 98 98.6 05/05/18 07:46 84 20 100 Nasal Cannula 2.0 28 05/05/18 07:35 78 20 100 Nasal Cannula 2.0 28 05/05/18 04:00 97.2 57 20 96/65 (75) 99 97.2 05/05/18 04:00 84 05/05/18 00:58 99 20 95 Nasal Cannula 2.0 28 05/05/18 00:58 Nasal Cannula 2.0 28 05/05/18 00:00 98.1 89 24 95/52 (66) 99 98.1 05/05/18 00:00 82 05/04/18 23:29 98 20 99 Nasal Cannula 2.0 28 05/04/18 23:20 99 24 99 Nasal Cannula 2.0 28 EENT: PERRL/EOMI Neck: JVD - very hihg Rhythm: Afib Cardiovascular: irregularly irregular Respiratory/Chest: decreased breath sounds Abdomen: other - ascites Extremities: severe edema, other Intake and Output 05/04/18 05/05/18 19:00 07:00 Intake Total 100 ml Output Total 4360 ml Balance -4260 ml Intake Oral 100 ml Output Hemodialysis UF 4360 ml # Voids 2 # Bowel Movements 1 Microbiology Date/Time Source Procedure Growth Status 05/03/18 22:00 Blood Blood Culture - Preliminary Resulted 05/03/18 21:45 Blood Blood Culture - Preliminary NO GROWTH AFTER 24 HOURS Resulted 05/04/18 01:50 Rectum VRE Culture Pending Resulted 05/04/18 01:50 Rectum - Preliminary Resulted Megan Arthur MD May 05, 2018 21:56
--- NOTE | 2018-05-07 13:32 | Discharge Summary ---
Discharge Summary Discharge Summary _ DATE OF ADMISSION: 05/03/2018 DATE OF DISCHARGE: 05/05/2018 REASON FOR ADMISSION: 78 years old female with past medical history significant for cardiomyopathy, hypertension, COPD, end-stage renal disease on hemodialysis , chronic atrial fibrillation, recurrent DVT, coronary artery disease, class IV congestive heart failure, severe peripheral neuropathy, type 2 diabetes mellitus, anemia of chronic kidney disease, crystal arthropathy, was sent from the custodial facility with increased difficulty breathing. Patient had dialysis a day prior to presentation to emergency department. Upon evaluation patient was tachycardic with heart rate 132 , tachypneic with respiratory rate of 22 , blood pressure was 146/92. Laboratory workup revealed no leukocytosis, hemoglobin 8.7 , hematocrit 28.7 . BUN 24 creatinine 4.5 , glucose 207 Chest x-ray revealed cardiomegaly and evidence of congestive heart failure along with bilateral pleural effusion. Troponin elevated 0.267. Patient admitted with diagnoses of COPD exacerbation, congestive heart failure , end-stage renal disease, severe cardiomyopathy, anemia of chronic kidney disease, chronic atrial fibrillation, recurrent DVT, coronary artery disease, crystal arthropathy, NYHA class IV congestive heart failure, severe peripheral neuropathy, type 2 diabetes mellitus CONSULTANTS: teletype clerk Dr. Arthur pulmonary [facility] COURSE: Patient admitted to telemetry floor. Pulmonology and cardiology consults were requested. Hemodialysis with ultrafiltration with close monitoring of volumes and cardiorenal parameters was done. Supplemental oxygen provided to keep pulse oximetry above 92% along with pulmonary toilet as needed. [employer] Lieutenant seen and evaluated patient. Per superintendent automotive, the patient had decreased breath sounds bilaterally without audible wheezes or rhonchi. After reviewing chest x-ray, superintendent automotive recommended to hold off steroids for now and proceed with hemodialysis with ultrafiltration. Warm In Worker seen and evaluated patient. Echocardiogram revealed ejection fraction of 20% to 25%. No evidence of left ventricular hypertrophy. Large pleural effusion. Global left ventricular hypokinesis. Worse in the mid anterior septum. Severe tricuspid regurgitation. Moderate mitral regurgitation. Right ventricular systolic pressure of 43 consistent with mild pulmonary hypertension. Per teletype clerk , patient had acute on chronic systolic congestive heart failure due to dilated cardiomyopathy . Patient had evidence of atrial fibrillation which was permanent. Rate was controlled , but no anticoagulation provided due to history of GI bleeding and abdominal wall hematoma. Per cardio, patient did not tolerated the GENEVIEVE inhibitor and Entresto in the past, due to hypotension. Anti-failure regimen was continued with beta dannie. Blood pressure stable with beta dannie only. Warm In Worker also recommended to continue with hemodialysis with ultrafiltration to remove excess fluid. Prognosis for this patient was grave according to teletype clerk. DVT prophylaxis provided. Hemoglobin and hematocrit were closely monitored with goal to keep hemoglobin above 7. Patient was on Epogen. Supportive care provided. Pain management was addressed. Bowel regimen instituted. Patient clinically improved Pulse oximetry was stable on oxygen via nasal cannula . Patient was stable for discharge to custodial facility for continuation of care FINAL DIAGNOSES: Congestive heart failure, acute on chronic, systolic due to dilated cardiomyopathy, end-stage, Severe dilated nonischemic cardiomyopathy NYHA class IV congestive heart failure Permanent atrial fibrillation Pulmonary edema Bilateral pleural effusion Respiratory failure with hypoxemia Likely demand ischemia Anemia of chronic kidney disease COPD End-stage renal failure ,on hemodialysis Recurrent DVT Severe peripheral neuropathy Diabetes mellitus type 2 Coronary artery disease Crystal arthropathy DISCHARGE MEDICATIONS: See Medication Reconciliation list. DISCHARGE INSTRUCTIONS: Patient was discharged to the custodial facility. Follow up with medical doctor at the facility. I have been assigned to dictate discharge summary for this account. I was not involved in the patient's management. Zoila Junior NP May 07, 2018 13:32
== END 2018-05-05 18:35 | DRG 291 ==
LOC: EDBD 21:46 → EMR 22:40 → 2E 22:48 → EDBEDREQ 22:57
PROC: 5A1D70Z Performance of Urinary Filtration, Intermittent, Less than 6 Hours Per Day (ICD-10-PCS; principal; 2018-05-04)
DX: I50.23 Acute on chronic systolic (congestive) heart failure (principal); J96.91 Respiratory failure, unspecified with hypoxia; N18.6 End stage renal disease; J44.1 Chronic obstructive pulmonary disease with (acute) exacerbation; I42.0 Dilated cardiomyopathy; I24.8 Other forms of acute ischemic heart disease; I48.2 Chronic atrial fibrillation; D63.1 Anemia in chronic kidney disease; Z99.2 Dependence on renal dialysis; Z86.718 Personal history of other venous thrombosis and embolism; G62.9 Polyneuropathy, unspecified; E11.9 Type 2 diabetes mellitus without complications; I25.10 Atherosclerotic heart disease of native coronary artery without angina pectoris; M11.9 Crystal arthropathy, unspecified; I27.20 Pulmonary hypertension, unspecified; I34.0 Nonrheumatic mitral (valve) insufficiency; I36.1 Nonrheumatic tricuspid (valve) insufficiency; I44.7 Left bundle-branch block, unspecified
CPT/HCPCS: 36415; 71045; 80053; 82550; 82553; 83605; 84484; 85025; 85610; 85730; 87040; 87081; 87181; 93005; 93306; 94640; 94664; 94760; J7620

== ENCOUNTER 2018-05-25 23:47 | Inpatient (IN) | payer MEDICARE, OTHER ==
[~2018-05-25] VITALS: Ht 165.1 cm; Wt 94.8 kg
[~2018-05-25 23:47] MED LIST changes: +DUONEB 0.5-3(2.53 ML HHN; +NEPHROVITE1 TAB ORAL; +NORCO 5-325 TA1 EACH ORAL
[2018-05-25] MEDS ORDERED: ADULT WAL-100 MG/5 M ORAL (23:56)
[2018-05-25 23:59] VITALS: BP 101/63
[2018-05-26] VITALS (8 sets, daily range): BP systolic 86–122; BP diastolic 53–86
[2018-05-26] MEDS ORDERED: Ipratropium 0.02% Inh Soln 2.5ml UD HHN ONE
[2018-05-26] MEDS ORDERED: Solu-MEDROL 125mg Inj IVP ONE
--- NOTE | 2018-05-26 00:05 | Emergency Room Report ---
History of Present Illness General Chief Complaint: Dyspnea/Respdistress Source: Patient, Medical Record, EMS Present Illness HPI Is an 78-year-old female with multiple medical problem. She has a history of renal failure on hemodialysis Tuesday, , and Tuesday. She had dialysis today. She present with chief complaint of shortness of breath. She also has history of COPD. Onset for about a week. Also with cough and productive of whitish sputum. This has been ongoing for a week and a half. No fever chills but no nausea no vomiting. Worse with exertion. Better with rest. She also has left arm swelling for last 2 days. She had an infected dialysis catheter on the right chest that was removed. A new one was placed on the left chest recently. Allergies: Coded Allergies: MIDAZOLAM (Verified Allergy, Unknown, 05/25/18) Patient History Past Medical History: see triage record, old chart reviewed, HTN, CHF, renal disease, dialysis Past Surgical History: other Pertinent Family History: none Social History: Denies: smoking Last Menstrual Period: n/a Now: No Immunizations: other Reviewed Nursing Documentation: PMH: Agreed; PSxH: Agreed Nursing Documentation-PMH Hx Cardiac Problems: Yes - afib,pleural effusion Hx Hypertension: Yes Hx Pacemaker: Yes Hx COPD: Yes Hx Cancer: No Hx Gastrointestinal Problems: Yes Hx Dialysis: Yes - , , Tue- right upper chest shunt Hx Neurological Problems: No Review of Systems Eye: Denies: eye pain, blurred vision ENT: Denies: ear pain, nose congestion, throat swelling Respiratory: Reports: cough, shortness of breath, [place], sputum Cardiovascular: Denies: chest pain, palpitations Gastrointestinal: Denies: abdominal pain, diarrhea, nausea, vomiting Musculoskeletal: Denies: back pain, joint pain Skin: Denies: rash Neurological: Denies: headache, numbness Endocrine: Denies: increased thirst, increased urine Hematologic/Lymphatic: Denies: easy bruising All Other Systems: negative except mentioned in HPI Physical Exam Vital Signs Date Time Temp Pulse Resp B/P (MAP) Pulse Ox O2 Delivery O2 Flow Rate FiO2 05/25/18 23:49 97.2 86 20 83/53 97 Nasal Cannula 4.0 97.2 vitals with hypoxia and hypotension Sp02 EP Interpretation: reviewed, abnormal General Appearance: well appearing, alert, mild distress Head: normocephalic, atraumatic Eyes: bilateral eye PERRL, bilateral eye EOMI ENT: hearing grossly normal, normal pharynx Neck: full range of motion, supple, no meningismus Respiratory: chest non-tender, normal breath sounds, decreased breath sounds, rales, rhonchi Cardiovascular #1: regular rate, rhythm, no murmur Gastrointestinal: normal bowel sounds, non tender, no mass, no organomegaly, no bruit, non-distended Musculoskeletal: back normal, normal range of motion, other - 2+ edema to the left upper extremities Neurologic: alert, oriented x3 Psychiatric: mood/affect normal Skin: warm/dry Medical Decision Making Diagnostic Impression: Primary Impression: COPD exacerbation Additional Impressions: ESRD on dialysis Chronic a-fib Pleural effusion ER Course Patient presents with soreness of breath. This is most likely COPD exacerbation rather than fluid overloaded. She has chronic pleural effusions unchanged from before. I discussed the case with Dr. Pardo who will admit. Lab Results Impression labs with elevated BNP EKG Diagnostic Results Rate: normal Rhythm: other - afib ST Segments: other - NSST changes ASA given to the pt in ED: No Rhythm Strip Diag. Results Rhythm Strip Time: 00:49 EP Interpretation: yes Rate: 97 Rhythm: no PVC's, no ectopy, other - afib Chest X-Ray Diagnostic Results Chest X-Ray Diagnostic Results : Chest X-Ray Ordered: Yes # of Views/Limited/Complete: 1 View Indication: Shortness of Breath EP Interpretation: Yes Interpretation: no pneumothorax, other - CM, atelectasis MACIE, b/l effusion. no change from prior. Impression: Other - CM with effusion Electronically Signed by: Michael Moran MD CT/MRI/US Diagnostic Results CT/MRI/US Diagnostic Results : Imaging Test Ordered: ultrasound of left upper extremity Impression negative per radiologist Last Vital Signs Date Time Temp Pulse Resp B/P (MAP) Pulse Ox O2 Delivery O2 Flow Rate FiO2 05/25/18 23:59 98.8 82 24 101/63 100 Nasal Cannula 3.0 98.8 Status: improved Disposition: ADMITTED INPATIENT Condition: Serious MICHAEL MORAN M.D. May 26, 2018 00:05
[2018-05-26] MEDS ORDERED: NS 250 ML IVPB ONE (00:45)
[2018-05-26] MEDS ORDERED: Albuterol ud Inhalation HHN ONE ×2 (00:45)
[2018-05-26 00:48] LABS: BASOPHILS % (AUTO) 0.8 % (0.0-2.0); EOSINOPHILS % (AUTO) 1.6 % (0.0-3.0); HEMATOCRIT 29.8 % (37.0-47.0); HEMOGLOBIN 9.3 G/DL (12.0-16.0); LYMPHOCYTES % (AUTO) 16.5 % (20.0-45.0); MEAN CORPUSCULAR VOLUME 93 FL (80-99); MONOCYTES % (AUTO) 12.4 % (1.0-10.0); NEUTROPHILS % (AUTO) 68.7 % (45.0-75.0); PLATELET COUNT 122 K/UL (150-450); RED CELL DISTRIBUTION WIDTH 16.3 % (11.6-14.8); WHITE BLOOD COUNT 7.7 K/UL (4.8-10.8)
[2018-05-26 01:08] LABS: INR 1.2 (0.9-1.1)
[2018-05-26] MEDS ORDERED: Milk of Magnesia 30ml Ud ORAL PRN (01:15)
[2018-05-26 01:19] LABS: ALANINE AMINOTRANSFERASE 10 U/L (12-78); ALBUMIN 2.3 G/DL (3.4-5.0); ALBUMIN/GLOBULIN RATIO 0.5 (1.0-2.7); ALKALINE PHOSPHATASE 230 U/L (46-116); ANION GAP 10 mmol/L (5-15); ASPARTATE AMINO TRANSFERASE 20 U/L (15-37); BILIRUBIN,TOTAL 1.1 MG/DL (0.2-1.0); BLOOD UREA NITROGEN 25 mg/dL (7-18); CARBON DIOXIDE 27 MMOL/L (21-32); CHLORIDE 102 MMOL/L (98-107); CREATINE KINASE 28 U/L (26-308); POTASSIUM 4.4 MMOL/L (3.5-5.1); SODIUM 139 MMOL/L (136-145)
[2018-05-26 01:22] LABS: BILIRUBIN,DIRECT 0.4 MG/DL (0.0-0.3)
[2018-05-26] MEDS ORDERED: Heparin Sod 1000 units/ml 10ml IV SCH (01:30)
[2018-05-26] MEDS ORDERED: LORazepam Inj 2mg/ml 1ml ONE (01:37)
[2018-05-26] MEDS ORDERED: LORazepam Inj 2mg/ml 1ml IV ONE (01:45)
[2018-05-26] MEDS: Albuterol/Ipratropium 3ml neb HHN PRN ×2 (08:21→22:18)
[2018-05-26] MEDS: Heparin 5000 units/ml inj SUBQ SCH ×2 (09:00→21:00)
[2018-05-26] MEDS: Aspirin Baby 81mg ORAL SCH (09:28)
[2018-05-26] MEDS: Docusate 100mg cap ORAL SCH ×2 (09:28→22:09)
--- NOTE | 2018-05-26 11:22 | Diagnostic Imaging Report ---
Indication: Dyspnea Comparison: 05/03/2018 A single view chest radiograph was obtained. Findings: Interstitial edema is present. Suspected bilateral pleural effusions. Platelike left perihilar atelectasis noted. Permacath in the left noted in good position. Tip projected over the right atrium. Pacemaker again noted. IMPRESSION: Mild interstitial edema. Suspected bilateral pleural effusions
--- NOTE | 2018-05-26 14:45 | History and Physical Report ---
DATE OF ADMISSION: 05/26/2018 CHIEF COMPLAINT: Cough and shortness of breath. HISTORY OF PRESENT ILLNESS: This is an 78-year-old female, who is on dialysis every Tuesday, , and Tuesday. The patient completed her dialysis run yesterday. The run was relatively stable although I was closed about low systolic blood pressure around 80. The patient returned to the care home. I was called later about the patient becoming short of breath. The RN examined the patient and the patient was wheezing. I instructed the patient to be transferred to the ER. PAST MEDICAL HISTORY: 1. End-stage renal failure started about three months ago. 2. Congestive heart failure combined with left ventricular ejection fraction in the low 20s. 3. COPD. 4. Chronic atrial fibrillation. 5. Crystal-induced arthritis. 6. Anemia of chronic kidney disease. 7. Status post pacemaker. MEDICATIONS: Guaifenesin p.r.n., Coreg, Nephro-Gabriela, and Tylenol p.r.n. ALLERGIES: No known drug allergies. FAMILY HISTORY: Unremarkable. SOCIAL HISTORY: She lives in a care home. HABITS: She is nonsmoker and nondrinker. There is no history of illicit drug abuse. REVIEW OF SYSTEMS: HEENT: Hearing and eyesight are normal. ENDOCRINE: No history of diabetes, thyroid or adrenal problems. RESPIRATORY: Please refer to history of present illness. She has a combination of COPD, CHF, and end-stage renal failure. GASTROINTESTINAL: She has a remote history of GI bleed. NEUROLOGIC: No history of stroke or syncope. PHYSICAL EXAMINATION: GENERAL: This is an elderly female, who is in no acute distress. The patient is a very alert. VITAL SIGNS: Blood pressure 100/60, pulse 84, atrial fibrillation, and respirations 20. HEENT: Head is normocephalic and atraumatic. Pupils are equal, round, and reactive to light and accommodation consensually. NECK: Supple. Trachea midline. She has jugular venous distention. There were no carotid bruits. LUNGS: Bilateral wheezes. There was decreased breath sounds on the right side. HEART: Irregularly irregular. ABDOMEN: Distended. There is impression of tense ascites. There was impression of hepatomegaly. EXTREMITIES: She has left arm edema most likely related to a left-sided internal jugular PermCath. She has 2+ leg edema. NEUROLOGIC: She is alert and oriented x4. Cranial nerves II through XII intact. LABORATORY AND ANCILLARY DATA: CBC shows hematocrit 29.8, WBC 7.7, and platelet count 122,000. Chemistry, electrolytes within normal limits. BUN post dialysis 25, creatinine 5. Troponin 0.211. Albumin 2.3. IMAGING STUDIES: I do not have the original report of chest x-ray. According to the ER physician, chest x-ray shows cardiomegaly, left upper lobe atelectasis, bilateral effusion. ASSESSMENT: 1. Rule out large ascites. 2. End-stage renal failure started about three months ago. 3. Congestive heart failure combined with left ventricular ejection fraction in the low 20s. 4. COPD exacerbation. 5. Chronic atrial fibrillation. 6. Crystal-induced arthritis. 7. Anemia of chronic kidney disease. 8. Status post pacemaker. PLAN: 1. Breathing treatment. 2. Consider IV steroids. 3. Pulmonary consult. 4. Add additional dialysis today for symptoms brief, possibly fluid overload. 5. Continue care home medications. 6. Reassess cardiac function. We know that her previous LVEF was ~20%. The clue to declined cardiac function is recently developed hypotension! Cristy Jones M.D. DR: JOEY JOB#: [id number] CC: LASHONDA
--- NOTE | 2018-05-26 16:44 | Diagnostic Imaging Report ---
Indication:Abdominal pain Technique: Grayscale and duplex Doppler imaging of the abdomen performed. Comparison: None Findings: The liver is notable for surface micronodularity suspicious for chronic disease/cirrhosis. Correlate clinically. The gallbladder sludge is noted. There is mild ascites present. The demonstrated part of the pancreas, aorta and IVC show no abnormalities. Both kidneys appear unremarkable. ,The spleen is normal in size. There is no biliary ductal dilatation identified. Doppler evaluation of the main portal vein shows patency. There is no ascites. No hydronephrosis seen. CBD is 5 mm. Impression: Mild ascites Chronic liver disease suspected. Correlate clinically.
[2018-05-26] MEDS: Epogen (for ESRD on dialysis) SUBQ SCH (22:09)
[2018-05-27] VITALS: BP 117/65
[2018-05-27] MEDS ORDERED: Heparin 1000 units/ml 1ml Vial INJ SCH (01:15)
[2018-05-27 04:00] VITALS: BP 101/60
[2018-05-27] MEDS: Albuterol/Ipratropium 3ml neb HHN PRN ×3 (05:57→17:09)
[2018-05-27 08:00] VITALS: BP 104/74
--- NOTE | 2018-05-27 08:37 | Cardiology Report ---
APPROVED REPORT EXAM: Two-dimensional and M-mode echocardiogram with Doppler and color Doppler. INDICATION Congestive Heart Failure M-Mode DIMENSIONS IVSd2.1 (0.7-1.1cm)Left Atrium (MM)3.0 (1.6-4.0cm) LVDd3.9 (3.5-5.6cm)Aortic Root3.0 (2.0-3.7cm) PWd2.0 (0.7-1.1cm)Aortic Cusp Exc.1.6 (1.5-2.0cm) IVSs2.3 cm LVDs3.5 (2.5-4.0cm) PWs1.9 cm Mild left ventricular enlargement. Global left ventricular hypokinesis with abnormal septal motion ( septal dyskenisis ) ventricular ejection fraction estimated to be 15-20%. Mild left ventricular hypertrophy by 2-D. No evidence of pericardial effusion. Large pleural effusion present . Mild left atrial enlargement . Lateral rv and ra modi are not well seenin apical views however RV and RA appear enlarged with hypokietic RV. Focal aortic valve sclerosis with adequate cusp excursion. Heavily Thickened mitral valve leaflets with reduced excursion. Mitral annulus and aortic root calcification. pulmonic valve structure not well visualized . Normal tricuspid valve structure. IVC dilated at 2.4 cm without physiologic collapse suggestive of increased RA pressure. Pacemaker wire present in the right side chambers. A color flow and spectral Doppler study was performed and revealed: Trace aortic insufficiency . Moderate mitral regurgitation.. Mitral inflow velocitiesnon diagnostic Moderate tricuspid regurgitation. Tricuspid systolic velocities suggests peak right ventricular systolic pressure of 48mmHg,consistent with mild pulmonary hypertension . Mild pulmonic regurgitation present .
[2018-05-27] MEDS: Heparin 5000 units/ml inj SUBQ SCH ×3 (09:00→20:23)
[2018-05-27] MEDS: Docusate 100mg cap ORAL SCH ×2 (09:26→20:10)
[2018-05-27] MEDS: Aspirin Baby 81mg ORAL SCH (09:26)
--- NOTE | 2018-05-27 10:18 | Nephrology Progress Note ---
Assessment/Plan Plan 2 D Echo LVEF 15% !!! Previously ~20% about 3 months ago. Cardiology to advise. Note hypotension. ESRD + Intractable CHF ----> HD soon. May be in a new unrelenting Cardiorenal Failure Subjective Subjective More SOB Objective Objective Last 24 Hour Vital Signs Date Time Temp Pulse Resp B/P (MAP) Pulse Ox O2 Delivery O2 Flow Rate FiO2 05/27/18 07:45 Nasal Cannula 2.0 28 05/27/18 07:45 98 Nasal Cannula 2.0 28 05/27/18 07:45 96 20 Nasal Cannula 2.0 28 05/27/18 06:06 88 20 98 Nasal Cannula 3.0 32 05/27/18 05:56 85 20 97 Nasal Cannula 3.0 32 05/27/18 04:00 97 05/27/18 04:00 97.2 60 22 101/60 (74) 96 97.2 05/27/18 00:00 97.0 95 26 117/65 (82) 99 97.0 05/27/18 00:00 88 05/26/18 22:28 91 20 99 Nasal Cannula 3.0 32 05/26/18 22:18 98 Nasal Cannula 3.0 32 05/26/18 22:18 88 20 97 Nasal Cannula 3.0 32 05/26/18 22:18 Nasal Cannula 3.0 32 05/26/18 21:00 Nasal Cannula 3.0 05/26/18 20:26 88 20 Room Air 21 05/26/18 20:00 90 05/26/18 20:00 97.3 90 21 86/70 (75) 100 97.3 05/26/18 16:00 96.9 88 22 122/65 (84) 98 96.9 05/26/18 16:00 82 05/26/18 12:00 71 05/26/18 12:00 97.0 80 20 105/53 (70) 99 97.0 Intake and Output 05/26/18 05/27/18 19:00 07:00 Intake Total 120 ml 240 ml Balance 120 ml 240 ml Intake Oral 120 ml 240 ml Height (Feet): 5 Height (Inches): 5.00 Weight (Pounds): 209 Objective CV RR 2/6 SM Lungs B wheezes. Abs SNT. BS + E ++ edema. L arm edema>>Rt. Cristy Clemente MD May 27, 2018 10:18
[2018-05-27 12:00] VITALS: BP 102/53
--- NOTE | 2018-05-27 13:15 | Consultation ---
DATE OF CONSULTATION: 05/27/2018 PULMONARY CONSULTATION CONSULTING PHYSICIAN: Mohsen Wells M.D. REFERRING PHYSICIAN: Cristy Jones M.D. REASON FOR CONSULTATION: Shortness of breath. HISTORY OF PRESENT ILLNESS: The patient is an 78-year-old female, who is a renal failure patient. The patient was undergoing hemodialysis, was noted to be hypotensive. The patient also with shortness of breath and noted bronchospasm. The patient is brought into the emergency room and being admitted for for CHF, pulmonary edema, COPD exacerbation. The patient was started on current therapy and I was called to assist and evaluate further. The patient is an unreliable historian. The patient's chart reviewed. ER notes reviewed. X-rays suggestive of interstitial edema. The patient did undergo also an abdominal ultrasound showing some mild ascites, but not significant and also underlying chronic liver disease. The patient's care discussed and reviewed. The events fairly acute in nature. PAST MEDICAL HISTORY: End-stage renal disease, CHF, COPD, cardiomyopathy, poor ejection fraction of 20%, anemia of chronic disease, and pacemaker. MEDICATIONS: Reviewed. ALLERGIES: None known. SOCIAL HISTORY: Lives in a longterm. Nonsmoker and nondrinker. FAMILY HISTORY: Unremarkable to the above. PHYSICAL EXAMINATION: GENERAL: A well-developed female, advanced age. VITAL SIGNS: Reviewed, blood pressure 101/60, pulse 96, respirations 20, and saturations 98% on two liters. Heart rate 60. HEENT: Negative. Extraocular movements are grossly intact. NECK: Supple. Without jugular venous distention. LUNGS: With some crackles noted at the bases. CARDIAC: Normal S1, S2. Regular rate and rhythm without murmurs, rubs, or gallops. ABDOMEN: Soft, nontender, and nondistended. EXTREMITIES: Mild edema. No cyanosis or clubbing. NEUROLOGIC: Grossly nonfocal, weak, and confused. LABORATORY DATA: Reviewed. White count 7.7, hemoglobin 9.3, hematocrit 29, and platelets of 122,000. Sodium noted, BUN 25, creatinine 5. The troponin 0.211. BNP significantly elevated over 15,000. The albumin is 2.3. IMPRESSION: 1. Evidence of pulmonary edema. 2. Possible COPD with acute exacerbation. 3. Protein-calorie malnutrition, severe. 4. Troponin leak, possible non-STEMI. 5. Chronic renal failure. 6. Hyperglycemia. RECOMMENDATIONS: Supportive care. Hemodialysis with ultrafiltration. Keep negative fluid balance. DuoNeb as needed. DVT prophylaxis. Hold on IV steroids. Pending re-evaluation and worsening bronchospasm. Holds on antibiotics. So, we will follow clinically for further changes and interventions. Mohsen Wells M.D. DR: EARNESTINE JOB#: [id number] CC: LASHONDA
--- NOTE | 2018-05-27 15:20 | Cardiology Progress Note ---
Subjective Subjective [id number] Objective Last 24 Hour Vital Signs Date Time Temp Pulse Resp B/P (MAP) Pulse Ox O2 Delivery O2 Flow Rate FiO2 05/27/18 14:02 Nasal Cannula 2.0 05/27/18 12:57 Nasal Cannula 2.0 05/27/18 12:00 95 05/27/18 12:00 97.8 87 22 102/53 (69) 96 97.8 05/27/18 11:01 78 20 99 Nasal Cannula 2.0 28 05/27/18 10:46 77 20 98 Nasal Cannula 2.0 28 05/27/18 09:00 Nasal Cannula 3.0 05/27/18 09:00 Nasal Cannula 3.0 05/27/18 08:00 97.8 64 22 104/74 (84) 96 97.8 05/27/18 08:00 80 05/27/18 07:45 Nasal Cannula 2.0 28 05/27/18 07:45 98 Nasal Cannula 2.0 28 05/27/18 07:45 96 20 Nasal Cannula 2.0 28 05/27/18 06:06 88 20 98 Nasal Cannula 3.0 32 05/27/18 05:56 85 20 97 Nasal Cannula 3.0 32 05/27/18 04:00 97 05/27/18 04:00 97.2 60 22 101/60 (74) 96 97.2 05/27/18 00:00 97.0 95 26 117/65 (82) 99 97.0 05/27/18 00:00 88 05/26/18 22:28 91 20 99 Nasal Cannula 3.0 32 05/26/18 22:18 98 Nasal Cannula 3.0 32 05/26/18 22:18 88 20 97 Nasal Cannula 3.0 32 05/26/18 22:18 Nasal Cannula 3.0 32 05/26/18 21:00 Nasal Cannula 3.0 05/26/18 20:26 88 20 Room Air 21 05/26/18 20:00 90 05/26/18 20:00 97.3 90 21 86/70 (75) 100 97.3 05/26/18 16:00 96.9 88 22 122/65 (84) 98 96.9 05/26/18 16:00 82 Intake and Output 05/26/18 05/27/18 19:00 07:00 Intake Total 120 ml 240 ml Balance 120 ml 240 ml Intake Oral 120 ml 240 ml Microbiology Date/Time Source Procedure Growth Status 05/26/18 02:46 Rectum Received Megan Arthur MD May 27, 2018 15:20
[2018-05-27 16:17] VITALS: BP 102/53
--- NOTE | 2018-05-27 16:45 | Consultation ---
DATE OF CONSULTATION: 05/27/2018 CARDIOLOGY CONSULTATION CONSULTING PHYSICIAN: Megan Arthur M.D. PATIENT IDENTIFICATION: This patient is an 78-year-old female. REASON FOR ADMISSION: Shortness of breath and cough. The patient is complaining of severe cough and weakness. HISTORY OF PRESENT ILLNESS: This is a very unfortunate patient who is known to me for many years. She has cough and shortness of breath. She has dilated cardiomyopathy. She is also in atrial fibrillation. She had defibrillator. She is not anticoagulated due to history of abdominal hematoma and she has progressive right and left heart failure with severe anasarca, edema, shortness of breath. She also was started on dialysis about six months ago. PAST MEDICAL HISTORY: Also significant for hypertension, embolic event in the leg, anemia, and severe arthritis. MEDICATIONS: At present time include Tylenol, aspirin, carvedilol, DuoNeb, Epogen, subcutaneous heparin, losartan, Zofran, and Protonix. She is on dialysis. ALLERGIES: Not reported. HABITS: No history of drinking, smoking, or drug abuse. SOCIAL HISTORY: She is a prison resident. REVIEW OF SYSTEMS: She is bedridden. She is weak. She has a PermCath actually in the left subclavian vein. She has severe edema. PHYSICAL EXAMINATION: GENERAL: This is a chronically ill-appearing patient in chronic distress, quite ill. VITAL SIGNS: Blood pressure is 100/60, heart rate is 80 and irregular, temperature is normal, and oxygen saturation on 2 liters 96%. HEENT: PERRLA. EOMI. NECK: Supple. Jugular venous pressure is about 8 cm. Carotid upstroke is preserved. LUNGS: She has crackles bilaterally. Some rales. BREASTS: She has dependent edema. HEART: Irregular. Extremely distant sound. Murmur is not audible. ABDOMEN: Distended. Liver is not enlarged. EXTREMITIES: There is dependent edema and anasarca of the lower extremity. There is mild edema. Distal pulses diminished. LABORATORY AND DIAGNOSTIC DATA: EKG showed atrial fibrillation intraventricular conduction delay. Very low voltage. Labs, WBC 7.7, hemoglobin 9.3, and platelets 122. Her creatinine is 5. Her bilirubin is 1. Her troponin is 0.211. Albumin is 2.3. Chest x-ray shows bilateral small pleural effusion and congestion. Abdominal ultrasound showed ascites and echo showed ejection fraction of 15%. Global dysfunction. IMPRESSION AND RECOMMENDATION: Dilated cardiomyopathy, end-stage right and left heart failure, atrial fibrillation, not a candidate date for anticoagulation, on dialysis for kidney disease, acute on chronic systolic failure. RECOMMENDATION: Unfortunately, nothing much could be done for this unfortunate patient. She is too old for cardiac transplant or destination LVAD. She is on appropriate therapy. I will also recommend more aggressive symptoms relieving management. Megan Arthur M.D. DR: DIMITRIOS JOB#: [id number] CC:
[2018-05-27] MEDS: guaiFENesin 100mg/5ml Liq ud ORAL PRN (17:11)
[2018-05-27] MEDS: Albuterol/Ipratropium 3ml neb HHN SCH (19:15)
[2018-05-27 20:00] VITALS: BP 103/78
[2018-05-27] MEDS: Hydrocortisone 100mg Inj IV SCH (20:10)
[2018-05-28] VITALS (7 sets, daily range): BP systolic 97–126; BP diastolic 55–71
[2018-05-28] MEDS: Albuterol/Ipratropium 3ml neb HHN SCH ×4 (01:18→19:42)
[2018-05-28] MEDS: Heparin 5000 units/ml inj SUBQ SCH ×2 (08:00→21:00)
[2018-05-28] MEDS: Aspirin Baby 81mg ORAL SCH (08:00)
[2018-05-28] MEDS: Hydrocortisone 100mg Inj IV SCH (08:00)
[2018-05-28] MEDS: Docusate 100mg cap ORAL SCH ×2 (08:00→20:23)
[2018-05-28] MEDS: Losartan 25mg tab ORAL SCH (08:14)
--- NOTE | 2018-05-28 08:38 | Pulmonology Progress Note ---
Assessment/Plan Assessment/Plan IMPRESSION: 1. Evidence of pulmonary edema. 2. Possible COPD with acute exacerbation. 3. Protein-calorie malnutrition, severe. 4. Troponin leak, possible non-STEMI. 5. Chronic renal failure. 6. Hyperglycemia. PLAN consider steroids will start low dose now respiratory care keep negative monitor clinically cards input impression, plan, and exam edited and reviewed in detail care discussed with RN Subjective Allergies: Coded Allergies: MIDAZOLAM (Verified Allergy, Unknown, 05/25/18) Subjective care noted c/o sob d/w rn at bedside Objective Last 24 Hour Vital Signs Date Time Temp Pulse Resp B/P (MAP) Pulse Ox O2 Delivery O2 Flow Rate FiO2 05/28/18 08:14 124/55 05/28/18 08:00 98 124/55 05/28/18 07:59 97.0 98 26 124/55 (78) 97 97.0 05/28/18 07:57 82 22 100 Nasal Cannula 3.0 32 05/28/18 07:51 Nasal Cannula 3.0 32 05/28/18 07:51 98 Nasal Cannula 3.0 32 05/28/18 07:50 80 18 Nasal Cannula 3.0 32 05/28/18 07:48 80 22 98 Nasal Cannula 3.0 32 05/28/18 07:18 Nasal Cannula 3.0 05/28/18 04:00 96.6 65 26 118/71 (87) 97 96.6 05/28/18 04:00 87 05/28/18 01:19 95 20 100 Nasal Cannula 4.0 36 05/28/18 01:10 96 22 97 Nasal Cannula 4.0 36 05/28/18 01:10 36 05/28/18 00:00 97.9 90 26 115/64 (81) 97 97.9 05/28/18 00:00 97 05/27/18 21:00 Nasal Cannula 3.0 05/27/18 20:13 96 111/64 05/27/18 20:00 98.1 99 20 103/78 (86) 100 98.1 05/27/18 20:00 104 05/27/18 19:02 97 Nasal Cannula 4.0 36 05/27/18 19:02 92 18 Nasal Cannula 4.0 36 05/27/18 19:02 Nasal Cannula 4.0 36 05/27/18 17:18 80 20 100 Nasal Cannula 2.0 28 05/27/18 17:11 81 20 98 Nasal Cannula 2.0 28 05/27/18 16:17 97.8 87 22 102/53 (69) 96 97.8 05/27/18 16:00 97 05/27/18 14:02 Nasal Cannula 2.0 05/27/18 12:57 Nasal Cannula 2.0 05/27/18 12:00 95 05/27/18 12:00 97.8 87 22 102/53 (69) 96 97.8 05/27/18 11:01 78 20 99 Nasal Cannula 2.0 28 05/27/18 10:46 77 20 98 Nasal Cannula 2.0 28 05/27/18 09:00 Nasal Cannula 3.0 05/27/18 09:00 Nasal Cannula 3.0 Intake and Output 05/27/18 05/28/18 19:00 07:00 Intake Total 480 ml 350 ml Balance 480 ml 350 ml Intake Oral 480 ml 350 ml # Bowel Movements 1 Objective GENERAL: A well-developed female, advanced age. NAD HEENT: Negative. Extraocular movements are grossly intact. NECK: Supple. Without jugular venous distention. LUNGS: With some crackles noted at the bases. occasional expiratory wheeze CARDIAC: Normal S1, S2. Regular rate and rhythm without murmurs, rubs, or gallops. ABDOMEN: Soft, nontender, and nondistended. EXTREMITIES: Mild edema. No cyanosis or clubbing. NEUROLOGIC: Grossly nonfocal, weak, and confused. Microbiology Date/Time Source Procedure Growth Status 05/26/18 02:46 Nasal Nares MRSA Culture - Final Staphylococcus Aureus - Mrsa Complete 05/26/18 02:46 Rectum Received Laboratory Tests 05/27/18 18:59: Arterial Blood pH 7.426, Arterial Blood Partial Pressure CO2 30.8L, Arterial Blood Partial Pressure O2 100.5H, Arterial Blood HCO3 19.8L, Arterial Blood Oxygen Saturation 97.3, Arterial Blood Base Excess -3.8, Tay Test Positive Current Medications Medications (Trade) Dose Ordered Sig/Toby Route PRN Reason Start Time Stop Time Status Last Admin Dose Admin Acetaminophen (Tylenol) 650 mg Q4H PRN ORAL Mild Pain (Pain Scale 1-3) 05/26/18 01:15 06/25/18 01:14 Albuterol/ Ipratropium (Albuterol/ Ipratropium) 3 ml Q6H N 05/27/18 19:15 06/01/18 19:14 05/28/18 07:49 Aspirin (ASA) 81 mg DAILY ORAL 05/26/18 09:00 06/25/18 08:59 05/28/18 08:00 Carvedilol (Coreg) 3.125 mg EVERY 12 HOURS ORAL 05/27/18 21:00 06/26/18 20:59 05/28/18 08:00 Dextrose (Dextrose 50%) 25 ml STAT PRN IV Hypoglycemia 05/26/18 01:15 06/25/18 01:14 Dextrose (Dextrose 50%) 50 ml STAT PRN IV Hypoglycemia 05/26/18 01:15 06/25/18 01:14 Docusate Sodium (Colace) 100 mg EVERY 12 HOURS ORAL 05/26/18 09:00 06/25/18 08:59 05/28/18 08:00 Epoetin Rodo (Procrit (for ESRD on dialysis)) 7,000 units TUE-TUE-TUE SUBQ 05/26/18 21:00 06/25/18 20:59 05/26/18 22:09 Guaifenesin (Robitussin) 200 mg BID PRN ORAL For Cough 05/27/18 17:00 06/26/18 16:59 05/27/18 17:11 Heparin Sodium (Porcine) (Heparin 5000 units/ml) 5,000 units EVERY 12 HOURS SUBQ 05/26/18 09:00 06/25/18 08:59 Heparin Sodium (Porcine) (Heparin) 1,000 unit POSTHD INJ 05/27/18 01:15 06/26/18 01:14 Hydrocortisone (Solu-CORTEF) 100 mg DAILY IV 05/27/18 19:00 06/26/18 18:59 05/28/18 08:00 Losartan Potassium (Cozaar) 25 mg DAILY ORAL 05/28/18 09:00 06/27/18 08:59 05/28/18 08:14 Magnesium Hydroxide (Mom) 30 ml HSPRN PRN ORAL Constipation 05/26/18 01:15 06/25/18 01:14 Ondansetron HCl (Zofran) 4 mg Q6H PRN IVP Nausea & Vomiting 05/26/18 01:15 06/25/18 01:14 Pantoprazole (Protonix) 40 mg DAILY ORAL 05/26/18 09:00 06/25/18 08:59 05/28/18 08:00 Mohsen Wells MD May 28, 2018 08:38
--- NOTE | 2018-05-28 09:47 | Nephrology Progress Note ---
Assessment/Plan Plan 2 D Echo LVEF 15% !!! Previously ~20% about 3 months ago. Cardiology to advise. Note hypotension - improving. Anasarca - frequent HD as tolerated ESRD + Intractable CHF ----> HD frequently, fluid restriction. May be in a new unrelenting Cardiorenal Failure Subjective Subjective Still SOB despite HD repeat breathing therapies. Objective Objective Last 24 Hour Vital Signs Date Time Temp Pulse Resp B/P (MAP) Pulse Ox O2 Delivery O2 Flow Rate FiO2 05/28/18 08:14 124/55 05/28/18 08:00 98 124/55 05/28/18 07:59 97.0 98 26 124/55 (78) 97 97.0 05/28/18 07:57 82 22 100 Nasal Cannula 3.0 32 05/28/18 07:51 Nasal Cannula 3.0 32 05/28/18 07:51 80 05/28/18 07:51 98 Nasal Cannula 3.0 32 05/28/18 07:50 80 18 Nasal Cannula 3.0 32 05/28/18 07:48 80 22 98 Nasal Cannula 3.0 32 05/28/18 07:18 Nasal Cannula 3.0 05/28/18 04:00 96.6 65 26 118/71 (87) 97 96.6 05/28/18 04:00 87 05/28/18 01:19 95 20 100 Nasal Cannula 4.0 36 05/28/18 01:10 96 22 97 Nasal Cannula 4.0 36 05/28/18 01:10 36 05/28/18 00:00 97.9 90 26 115/64 (81) 97 97.9 05/28/18 00:00 97 05/27/18 21:00 Nasal Cannula 3.0 05/27/18 20:13 96 111/64 05/27/18 20:00 98.1 99 20 103/78 (86) 100 98.1 05/27/18 20:00 104 05/27/18 19:02 97 Nasal Cannula 4.0 36 05/27/18 19:02 92 18 Nasal Cannula 4.0 36 05/27/18 19:02 Nasal Cannula 4.0 36 05/27/18 17:18 80 20 100 Nasal Cannula 2.0 28 05/27/18 17:11 81 20 98 Nasal Cannula 2.0 28 05/27/18 16:17 97.8 87 22 102/53 (69) 96 97.8 05/27/18 16:00 97 05/27/18 14:02 Nasal Cannula 2.0 05/27/18 12:57 Nasal Cannula 2.0 05/27/18 12:00 95 05/27/18 12:00 97.8 87 22 102/53 (69) 96 97.8 05/27/18 11:01 78 20 99 Nasal Cannula 2.0 28 05/27/18 10:46 77 20 98 Nasal Cannula 2.0 28 Intake and Output 05/27/18 05/28/18 19:00 07:00 Intake Total 480 ml 350 ml Balance 480 ml 350 ml Intake Oral 480 ml 350 ml # Bowel Movements 1 Laboratory Tests 05/27/18 18:59: Arterial Blood pH 7.426, Arterial Blood Partial Pressure CO2 30.8L, Arterial Blood Partial Pressure O2 100.5H, Arterial Blood HCO3 19.8L, Arterial Blood Oxygen Saturation 97.3, Arterial Blood Base Excess -3.8, Tay Test Positive Height (Feet): 5 Height (Inches): 5.00 Weight (Pounds): 208 Objective CV RR 2/6 SM Lungs B wheezes. Abs SNT. BS + E ++ edema. L arm edema>>Rt. Cristy Clemente MD May 28, 2018 09:47
[2018-05-28] MEDS ORDERED: Heparin Sod 1000 units/ml 10ml IV PRN (10:30)
--- NOTE | 2018-05-28 11:04 | Cardiology Progress Note ---
Assessment/Plan Assessment/Plan The patient has end stage heart failure, right and left, she is in pulmonary edema and has anasarca and liver enlargement due to right heart failure, she has poor prognosis there was epidose of v tach last ngiht, she has defibrillator, which was interrogated recently and is functiong fine she is nto a candidate for advance ehart failure therapy due to her age and is not a candidate for dobumatime drip due to v tach continue supportive therapy Subjective Subjective The patient was coughing and is SOB Objective Last 24 Hour Vital Signs Date Time Temp Pulse Resp B/P (MAP) Pulse Ox O2 Delivery O2 Flow Rate FiO2 05/28/18 08:14 124/55 05/28/18 08:00 98 124/55 05/28/18 07:59 97.0 98 26 124/55 (78) 97 97.0 05/28/18 07:57 82 22 100 Nasal Cannula 3.0 32 05/28/18 07:51 Nasal Cannula 3.0 32 05/28/18 07:51 80 05/28/18 07:51 98 Nasal Cannula 3.0 32 05/28/18 07:50 80 18 Nasal Cannula 3.0 32 05/28/18 07:48 80 22 98 Nasal Cannula 3.0 32 05/28/18 07:18 Nasal Cannula 3.0 05/28/18 04:00 96.6 65 26 118/71 (87) 97 96.6 05/28/18 04:00 87 05/28/18 01:19 95 20 100 Nasal Cannula 4.0 36 05/28/18 01:10 96 22 97 Nasal Cannula 4.0 36 05/28/18 01:10 36 05/28/18 00:00 97.9 90 26 115/64 (81) 97 97.9 05/28/18 00:00 97 05/27/18 21:00 Nasal Cannula 3.0 05/27/18 20:13 96 111/64 05/27/18 20:00 98.1 99 20 103/78 (86) 100 98.1 05/27/18 20:00 104 05/27/18 19:02 97 Nasal Cannula 4.0 36 05/27/18 19:02 92 18 Nasal Cannula 4.0 36 05/27/18 19:02 Nasal Cannula 4.0 36 9/1/18 17:18 80 20 100 Nasal Cannula 2.0 28 05/27/18 17:11 81 20 98 Nasal Cannula 2.0 28 05/27/18 16:17 97.8 87 22 102/53 (69) 96 97.8 05/27/18 16:00 97 05/27/18 14:02 Nasal Cannula 2.0 05/27/18 12:57 Nasal Cannula 2.0 05/27/18 12:00 95 05/27/18 12:00 97.8 87 22 102/53 (69) 96 97.8 05/27/18 11:01 78 20 99 Nasal Cannula 2.0 28 General Appearance: other - she looks very ill, and is in acute distress EENT: PERRL/EOMI Neck: JVD - severe Rhythm: Afib Cardiovascular: normal rate, other - very distant sounds Respiratory/Chest: crackles/rales, rhonchi - bilaterally Abdomen: hyperactive bowel sounds - severe genealized edema, anasarca, distended, hepatomegaly, other - ascites Extremities: severe edema Intake and Output 05/27/18 05/28/18 19:00 07:00 Intake Total 480 ml 350 ml Balance 480 ml 350 ml Intake Oral 480 ml 350 ml # Bowel Movements 1 Laboratory Tests Test 05/27/18 18:59 Arterial Blood pH 7.426 (7.350-7.450) Arterial Blood Partial Pressure CO2 30.8 mmHg (35.0-45.0) L Arterial Blood Partial Pressure O2 100.5 mmHg (75.0-100.0) H Arterial Blood HCO3 19.8 mmol/L (22.0-26.0) L Arterial Blood Oxygen Saturation 97.3 % (92.0-98.0) Arterial Blood Base Excess -3.8 Tay Test Positive Microbiology Date/Time Source Procedure Growth Status 05/26/18 02:46 Nasal Nares MRSA Culture - Final Staphylococcus Aureus - Mrsa Complete 05/26/18 02:46 Rectum VRE Culture - Final NO VANCOMYCIN RESISTANT ENTEROCOCCUS ... Complete 05/26/18 02:46 Rectum - Final NO CARBAPENEM-RESISTANT ENTEROBACTERI... Complete Megan Arthur MD May 28, 2018 11:04
[2018-05-28] MEDS: guaiFENesin 100mg/5ml Liq ud ORAL PRN (12:01)
[2018-05-28] MEDS: Solu-MEDROL 40mg Inj IVP SCH (20:23)
[2018-05-29] VITALS (7 sets, daily range): BP systolic 91–132; BP diastolic 51–74
[2018-05-29] MEDS: Albuterol/Ipratropium 3ml neb HHN SCH ×4 (01:19→19:50)
[2018-05-29] MEDS: Aspirin Baby 81mg ORAL SCH (08:56)
[2018-05-29] MEDS: Docusate 100mg cap ORAL SCH ×2 (08:56→21:12)
[2018-05-29] MEDS: Solu-MEDROL 40mg Inj IVP SCH ×2 (08:56→21:12)
[2018-05-29] MEDS: Heparin 5000 units/ml inj SUBQ SCH ×2 (09:00→21:14)
[2018-05-29] MEDS: Losartan 25mg tab ORAL SCH (09:00)
--- NOTE | 2018-05-29 09:42 | Nephrology Progress Note ---
Assessment/Plan Plan 2 D Echo LVEF 15% !!! Previously ~20% about 3 months ago. Cardiology to advise. Note hypotension - improving. Anasarca - frequent HD as tolerated ESRD + Intractable CHF ----> HD frequently, fluid restriction. May be in a new unrelenting Cardiorenal Failure To Dw Cardiology. Subjective Subjective Still very SOB despite HD repeat breathing therapies. On HD now. Stable run. Objective Objective Last 24 Hour Vital Signs Date Time Temp Pulse Resp B/P (MAP) Pulse Ox O2 Delivery O2 Flow Rate FiO2 05/29/18 09:00 Venturi Mask 4.0 05/29/18 09:00 100/60 05/29/18 08:00 97.7 91 20 116/62 (80) 99 97.7 05/29/18 07:50 91 20 100 Nasal Cannula 3.0 32 05/29/18 07:44 Nasal Cannula 3.0 32 05/29/18 07:44 97 Nasal Cannula 3.0 32 05/29/18 07:43 88 20 97 Nasal Cannula 3.0 32 05/29/18 07:00 Nasal Cannula 3.0 05/29/18 04:00 97.0 90 20 100/60 (73) 100 97.0 05/29/18 04:00 87 05/29/18 01:30 83 20 100 Venturi Mask 4.0 30 05/29/18 01:19 75 20 100 Venturi Mask 6.0 35 05/29/18 00:00 80 05/29/18 00:00 97.0 78 26 115/64 (81) 100 97.0 05/28/18 21:00 Venturi Mask 6.0 05/28/18 20:30 90 126/67 (86) 18 20:23 90 126/67 05/28/18 20:00 90 05/28/18 20:00 97.5 83 20 97/56 (70) 95 97.5 05/28/18 19:52 89 20 100 Nasal Cannula 3.0 32 05/28/18 19:42 Nasal Cannula 3.0 32 18 19:42 99 Nasal Cannula 3.0 32 05/28/18 19:42 85 20 99 Nasal Cannula 3.0 32 05/28/18 16:50 97.0 77 26 103/58 (73) 97 97.0 05/28/18 15:49 80 05/28/18 13:50 86 20 99 Nasal Cannula 3.0 32 05/28/18 13:43 83 20 98 Nasal Cannula 3.0 32 05/28/18 11:55 80 05/28/18 11:47 97.0 81 26 112/69 (83) 97 97.0 Intake and Output 05/28/18 05/29/18 19:00 07:00 Intake Total 555 ml 30 ml Balance 555 ml 30 ml Intake Oral 435 ml 30 ml Other 120 ml # Bowel Movements 2 1 Laboratory Tests 05/29/18 07:10: Hepatitis A IgM Antibody [Pending], Hepatitis B Surface Antigen [Pending], Hepatitis B Core IgM Antibody [Pending], Hepatitis C Antibody [Pending] Height (Feet): 5 Height (Inches): 5.00 Weight (Pounds): 206 Objective CV RR 2/6 SM Lungs B wheezes. Abs SNT. BS + E ++ edema. L arm edema>>Rt. Cristy Clemente MD May 29, 2018 09:42
--- NOTE | 2018-05-29 11:40 | Cardiology Progress Note ---
Assessment/Plan Assessment/Plan The patient has end stage heart failure, right and left, she is in pulmonary edema and has anasarca and liver enlargement due to right heart failure, she has poor prognosis she has defibrillator, which was interrogated recently and is functioning fine she is nto a candidate for advance ehart failure therapy due to her age and is not a candidate for dobumatime drip due to v tach I noticed that she started on steroids, but she has heart failure, not COPD, in my opinion, continue supportive therapy Subjective Subjective she feels better, still has cough Objective Last 24 Hour Vital Signs Date Time Temp Pulse Resp B/P (MAP) Pulse Ox O2 Delivery O2 Flow Rate FiO2 05/29/18 10:00 Nasal Cannula 3.0 05/29/18 09:00 Venturi Mask 4.0 05/29/18 09:00 100/60 05/29/18 08:00 97.7 91 20 116/62 (80) 99 97.7 05/29/18 08:00 79 05/29/18 07:50 91 20 100 Nasal Cannula 3.0 32 05/29/18 07:44 Nasal Cannula 3.0 32 05/29/18 07:44 97 Nasal Cannula 3.0 32 05/29/18 07:43 88 20 97 Nasal Cannula 3.0 32 05/29/18 07:00 Nasal Cannula 3.0 05/29/18 04:00 97.0 90 20 100/60 (73) 100 97.0 05/29/18 04:00 87 05/29/18 01:30 83 20 100 Venturi Mask 4.0 30 05/29/18 01:19 75 20 100 Venturi Mask 6.0 35 05/29/18 00:00 80 05/29/18 00:00 97.0 78 26 115/64 (81) 100 97.0 05/28/18 21:00 Venturi Mask 6.0 05/28/18 20:30 90 126/67 (86) 05/28/18 20:23 90 126/67 05/28/18 20:00 90 05/28/18 20:00 97.5 83 20 97/56 (70) 95 97.5 05/28/18 19:52 89 20 100 Nasal Cannula 3.0 32 05/28/18 19:42 Nasal Cannula 3.0 32 05/28/18 19:42 99 Nasal Cannula 3.0 32 05/28/18 19:42 85 20 99 Nasal Cannula 3.0 32 05/28/18 16:50 97.0 77 26 103/58 (73) 97 97.0 05/28/18 15:49 80 05/28/18 13:50 86 20 99 Nasal Cannula 3.0 32 05/28/18 13:43 83 20 98 Nasal Cannula 3.0 32 05/28/18 11:55 80 05/28/18 11:47 97.0 81 26 112/69 (83) 97 97.0 General Appearance: moderate distress, other - anasarca EENT: PERRL/EOMI Neck: JVD - very high Rhythm: Afib Cardiovascular: systolic murmur, gallop/S3 Respiratory/Chest: crackles/rales Abdomen: other - ascites Extremities: pitting Intake and Output 05/28/18 05/29/18 19:00 07:00 Intake Total 555 ml 30 ml Balance 555 ml 30 ml Intake Oral 435 ml 30 ml Other 120 ml # Bowel Movements 2 1 Laboratory Tests Test 05/29/18 07:10 Hepatitis A IgM Antibody Pending Hepatitis B Surface Antigen Pending Hepatitis B Core IgM Antibody Pending Hepatitis C Antibody Pending Megan Arthur MD May 29, 2018 11:40
--- NOTE | 2018-05-29 12:17 | Pulmonology Progress Note ---
Assessment/Plan Assessment/Plan IMPRESSION: 1. Evidence of pulmonary edema. 2. Possible COPD with acute exacerbation. 3. Protein-calorie malnutrition, severe. 4. Troponin leak, possible non-STEMI. 5. Chronic renal failure. 6. Hyperglycemia. PLAN IV steroids respiratory care keep negative monitor clinically cards input reviewed no distress impression, plan, and exam edited and reviewed in detail care discussed with RN Subjective ROS Limited/Unobtainable: Yes Allergies: Coded Allergies: MIDAZOLAM (Verified Allergy, Unknown, 05/25/18) Subjective care noted findings reviewed Objective Last 24 Hour Vital Signs Date Time Temp Pulse Resp B/P (MAP) Pulse Ox O2 Delivery O2 Flow Rate FiO2 05/29/18 10:00 Nasal Cannula 3.0 05/29/18 09:00 Venturi Mask 4.0 05/29/18 09:00 100/60 05/29/18 08:00 97.7 91 20 116/62 (80) 99 97.7 05/29/18 08:00 79 05/29/18 07:50 91 20 100 Nasal Cannula 3.0 32 05/29/18 07:44 Nasal Cannula 3.0 32 05/29/18 07:44 97 Nasal Cannula 3.0 32 05/29/18 07:43 88 20 97 Nasal Cannula 3.0 32 05/29/18 07:00 Nasal Cannula 3.0 05/29/18 04:00 97.0 90 20 100/60 (73) 100 97.0 05/29/18 04:00 87 05/29/18 01:30 83 20 100 Venturi Mask 4.0 30 05/29/18 01:19 75 20 100 Venturi Mask 6.0 35 05/29/18 00:00 80 05/29/18 00:00 97.0 78 26 115/64 (81) 100 97.0 05/28/18 21:00 Venturi Mask 6.0 05/28/18 20:30 90 126/67 (86) 05/28/18 20:23 90 126/67 05/28/18 20:00 90 05/28/18 20:00 97.5 83 20 97/56 (70) 95 97.5 05/28/18 19:52 89 20 100 Nasal Cannula 3.0 32 05/28/18 19:42 Nasal Cannula 3.0 32 05/28/18 19:42 99 Nasal Cannula 3.0 32 05/28/18 19:42 85 20 99 Nasal Cannula 3.0 32 05/28/18 16:50 97.0 77 26 103/58 (73) 97 97.0 05/28/18 15:49 80 05/28/18 13:50 86 20 99 Nasal Cannula 3.0 32 05/28/18 13:43 83 20 98 Nasal Cannula 3.0 32 Intake and Output 05/28/18 05/29/18 19:00 07:00 Intake Total 555 ml 30 ml Balance 555 ml 30 ml Intake Oral 435 ml 30 ml Other 120 ml # Bowel Movements 2 1 Objective GENERAL: A well-developed female, advanced age. NAD NAD HEENT: Negative. NECK: Supple. Without jugular venous distention. LUNGS: With some crackles noted at the bases. minimal wheeze CARDIAC: Normal S1, S2. Regular rate and rhythm without murmurs, rubs, or gallops. ABDOMEN: Soft, nontender, and nondistended. EXTREMITIES: Mild edema. No cyanosis or clubbing. NEUROLOGIC: Grossly nonfocal, weak, and confused. Laboratory Tests 05/29/18 07:10: Hepatitis A IgM Antibody [Pending], Hepatitis B Surface Antigen [Pending], Hepatitis B Core IgM Antibody [Pending], Hepatitis C Antibody [Pending] Current Medications Medications (Trade) Dose Ordered Sig/Toby Route PRN Reason Start Time Stop Time Status Last Admin Dose Admin Acetaminophen (Tylenol) 650 mg Q4H PRN ORAL Mild Pain (Pain Scale 1-3) 05/26/18 01:15 06/25/18 01:14 Albuterol/ Ipratropium (Albuterol/ Ipratropium) 3 ml Q6H HHN 05/27/18 19:15 06/01/18 19:14 05/29/18 07:43 Aspirin (ASA) 81 mg DAILY ORAL 05/26/18 09:00 06/25/18 08:59 05/29/18 08:56 Carvedilol (Coreg) 3.125 mg EVERY 12 HOURS ORAL 05/27/18 21:00 06/26/18 20:59 05/28/18 20:23 Dextrose (Dextrose 50%) 25 ml STAT PRN IV Hypoglycemia 05/26/18 01:15 06/25/18 01:14 Dextrose (Dextrose 50%) 50 ml STAT PRN IV Hypoglycemia 05/26/18 01:15 06/25/18 01:14 Docusate Sodium (Colace) 100 mg EVERY 12 HOURS ORAL 05/26/18 09:00 06/25/18 08:59 05/29/18 08:56 Epoetin Rodo (Procrit (for ESRD on dialysis)) 7,000 units TUE-TUE-TUE SUBQ 05/26/18 21:00 06/25/18 20:59 05/26/18 22:09 Guaifenesin (Robitussin) 200 mg BID PRN ORAL For Cough 05/27/18 17:00 06/26/18 16:59 05/28/18 12:01 Heparin Sodium (Porcine) (Heparin 5000 units/ml) 5,000 units EVERY 12 HOURS SUBQ 05/26/18 09:00 06/25/18 08:59 Heparin Sodium (Porcine) (Heparin Sod 1000 units/ml 10ml) 2,000 unit ONCE PRN IV FOR HD USE ONLY 05/28/18 10:30 05/29/18 23:59 Heparin Sodium (Porcine) (Heparin) 1,000 unit POSTHD INJ 05/27/18 01:15 06/26/18 01:14 05/29/18 08:44 Losartan Potassium (Cozaar) 25 mg DAILY ORAL 05/28/18 09:00 06/27/18 08:59 05/28/18 08:14 Magnesium Hydroxide (Mom) 30 ml HSPRN PRN ORAL Constipation 05/26/18 01:15 06/25/18 01:14 Methylprednisolone Sodium Succinate (Solu-MEDROL) 40 mg EVERY 12 HOURS IVP 05/28/18 21:00 05/30/18 20:59 05/29/18 08:56 Ondansetron HCl (Zofran) 4 mg Q6H PRN IVP Nausea & Vomiting 05/26/18 01:15 06/25/18 01:14 Pantoprazole (Protonix) 40 mg DAILY ORAL 05/26/18 09:00 06/25/18 08:59 05/29/18 08:56 Mohsen Wells MD May 29, 2018 12:17
[2018-05-29 14:11] LABS: BASOPHILS % (AUTO) 0.7 % (0.0-2.0); HEMATOCRIT 31.6 % (37.0-47.0); HEMOGLOBIN 9.6 G/DL (12.0-16.0); LYMPHOCYTES % (AUTO) 10.7 % (20.0-45.0); MEAN CORPUSCULAR VOLUME 93 FL (80-99); MONOCYTES % (AUTO) 6.8 % (1.0-10.0); NEUTROPHILS % (AUTO) 81.8 % (45.0-75.0); PLATELET COUNT 128 K/UL (150-450); RED BLOOD COUNT 3.39 M/UL (4.20-5.40); RED CELL DISTRIBUTION WIDTH 17.5 % (11.6-14.8); WHITE BLOOD COUNT 6.8 K/UL (4.8-10.8)
[2018-05-29 14:30] LABS: ALANINE AMINOTRANSFERASE 14 U/L (12-78); ALBUMIN 2.4 G/DL (3.4-5.0); ALBUMIN/GLOBULIN RATIO 0.5 (1.0-2.7); ALKALINE PHOSPHATASE 201 U/L (46-116); ANION GAP 11 mmol/L (5-15); ASPARTATE AMINO TRANSFERASE 15 U/L (15-37); BILIRUBIN,TOTAL 0.8 MG/DL (0.2-1.0); BLOOD UREA NITROGEN 24 mg/dL (7-18); CARBON DIOXIDE 23 MMOL/L (21-32); CHLORIDE 99 MMOL/L (98-107); CREATININE 4.7 MG/DL (0.55-1.30); POTASSIUM 4.3 MMOL/L (3.5-5.1); SODIUM 133 MMOL/L (136-145)
[2018-05-29] MEDS: guaiFENesin 100mg/5ml Liq ud ORAL PRN (16:41)
[2018-05-29] MEDS: Epogen (for ESRD on dialysis) SUBQ SCH (21:12)
[2018-05-30] VITALS: BP 118/66
[2018-05-30] MEDS: Albuterol/Ipratropium 3ml neb HHN SCH ×4 (01:07→20:27)
[2018-05-30 04:00] VITALS: BP 99/60
[2018-05-30 08:00] VITALS: BP 106/55
--- NOTE | 2018-05-30 08:25 | Nephrology Progress Note ---
Assessment/Plan Plan 2 D Echo LVEF 15% !!! Previously ~20% about 3 months ago. Cardiology to advise. Note hypotension - improving. Anasarca - frequent HD as tolerated ESRD + Intractable CHF ----> HD frequently, fluid restriction. May be in a new unrelenting Cardiorenal Failure To [facility] Cardiology. Subjective Subjective Slightly less SOB after HD + repeat breathing therapies. Objective Objective Last 24 Hour Vital Signs Date Time Temp Pulse Resp B/P (MAP) Pulse Ox O2 Delivery O2 Flow Rate FiO2 05/30/18 04:00 97.0 98 20 99/60 (73) 100 97.0 05/30/18 04:00 75 05/30/18 01:17 82 20 100 Nasal Cannula 2.0 28 05/30/18 01:07 85 18 100 Nasal Cannula 2.0 28 05/30/18 00:00 96 05/30/18 00:00 97.3 92 20 118/66 (83) 98 97.3 05/29/18 21:12 78 127/61 05/29/18 21:00 Nasal Cannula 2.0 05/29/18 20:00 97.0 56 20 127/61 (83) 98 97.0 05/29/18 20:00 91 05/29/18 20:00 78 20 99 Nasal Cannula 2.0 28 05/29/18 19:50 100 Nasal Cannula 3.0 32 05/29/18 19:50 76 18 100 Nasal Cannula 2.0 28 05/29/18 19:50 Nasal Cannula 3.0 32 05/29/18 16:00 97.5 87 20 132/74 (93) 98 97.5 05/29/18 16:00 91 05/29/18 13:34 87 20 99 Room Air 21 05/29/18 13:21 58 18 95 Room Air 21 05/29/18 12:01 97.5 85 20 101/69 (80) 100 97.5 05/29/18 12:00 92 05/29/18 10:00 Nasal Cannula 3.0 05/29/18 09:00 Venturi Mask 4.0 05/29/18 09:00 100/60 Intake and Output 05/29/18 05/30/18 19:00 07:00 Intake Total 480 ml 480 ml Balance 480 ml 480 ml Intake Oral 480 ml 480 ml # Bowel Movements 1 Laboratory Tests 05/29/18 14:00: White Blood Count 6.8, Red Blood Count 3.39L, Hemoglobin 9.6L, Hematocrit 31.6L , Mean Corpuscular Volume 93, Mean Corpuscular Hemoglobin 28.4, Mean Corpuscular Hemoglobin Concent 30.5L, Red Cell Distribution Width 17.5H, Platelet Count 128L, Mean Platelet Volume 8.1, Neutrophils (%) (Auto) 81.8H, Lymphocytes (%) (Auto) 10.7L, Monocytes (%) (Auto) 6.8, Eosinophils (%) (Auto) 0.0, Basophils (%) (Auto) 0.7, Sodium Level 133L, Potassium Level 4.3, Chloride Level 99, Carbon Dioxide Level 23, Anion Gap 11, Blood Urea Nitrogen 24H, Creatinine 4.7H, Estimat Glomerular Filtration Rate , Glucose Level 235H, Calcium Level 9.0, Total Bilirubin 0.8, Aspartate Amino Transf (AST/SGOT) 15, Alanine Aminotransferase (ALT/SGPT) 14, Alkaline Phosphatase 201H, Total Protein 6.9, Albumin 2.4L, Globulin 4.5, Albumin/Globulin Ratio 0.5L Height (Feet): 5 Height (Inches): 5.00 Weight (Pounds): 207 Objective CV RR 2/6 SM Lungs B wheezes. Abs SNT. BS + E ++ edema. L arm edema>>Rt. Cristy Clemente MD May 30, 2018 08:25
[2018-05-30] MEDS: Losartan 25mg tab ORAL SCH (09:00)
--- NOTE | 2018-05-30 09:05 | Pulmonology Progress Note ---
Assessment/Plan Assessment/Plan IMPRESSION: 1. Evidence of pulmonary edema. 2. Possible COPD with acute exacerbation. 3. Protein-calorie malnutrition, severe. 4. Troponin leak, possible non-STEMI. 5. Chronic renal failure. 6. Hyperglycemia. PLAN IV steroids and taper respiratory care as is keep negative and monitor monitor clinically cards input reviewed no distress at present impression, plan, and exam edited and reviewed in detail care discussed with RN Subjective ROS Limited/Unobtainable: Yes Allergies: Coded Allergies: MIDAZOLAM (Verified Allergy, Unknown, 05/25/18) Subjective care noted findings reviewed Objective Last 24 Hour Vital Signs Date Time Temp Pulse Resp B/P (MAP) Pulse Ox O2 Delivery O2 Flow Rate FiO2 05/30/18 08:35 82 20 100 Nasal Cannula 2.0 28 05/30/18 08:25 81 18 98 Nasal Cannula 2.0 28 05/30/18 08:25 Nasal Cannula 2.0 28 05/30/18 08:25 98 Nasal Cannula 2.0 28 05/30/18 08:00 92 05/30/18 08:00 96.9 87 22 106/55 (72) 97 96.9 05/30/18 04:00 97.0 98 20 99/60 (73) 100 97.0 05/30/18 04:00 75 05/30/18 01:17 82 20 100 Nasal Cannula 2.0 28 05/30/18 01:07 85 18 100 Nasal Cannula 2.0 28 05/30/18 00:00 96 05/30/18 00:00 97.3 92 20 118/66 (83) 98 97.3 05/29/18 21:12 78 127/61 05/29/18 21:00 Nasal Cannula 2.0 05/29/18 20:00 97.0 56 20 127/61 (83) 98 97.0 05/29/18 20:00 91 05/29/18 20:00 78 20 99 Nasal Cannula 2.0 28 05/29/18 19:50 100 Nasal Cannula 3.0 32 05/29/18 19:50 76 18 100 Nasal Cannula 2.0 28 05/29/18 19:50 Nasal Cannula 3.0 32 05/29/18 16:00 97.5 87 20 132/74 (93) 98 97.5 05/29/18 16:00 91 05/29/18 13:34 87 20 99 Room Air 21 05/29/18 13:21 58 18 95 Room Air 21 05/29/18 12:01 97.5 85 20 101/69 (80) 100 97.5 05/29/18 12:00 92 05/29/18 10:00 Nasal Cannula 3.0 Intake and Output 05/29/18 05/30/18 19:00 07:00 Intake Total 480 ml 480 ml Balance 480 ml 480 ml Intake Oral 480 ml 480 ml # Bowel Movements 1 Objective GENERAL: A well-developed female, advanced age. NAD NAD HEENT: Negative. NECK: Supple. Without jugular venous distention. LUNGS: reduced crackles noted at the bases. improved wheeze CARDIAC: Normal S1, S2. Regular rate and rhythm without murmurs, rubs, or gallops. ABDOMEN: Soft, nontender, and nondistended. EXTREMITIES: Mild edema. No cyanosis or clubbing. NEUROLOGIC: Grossly nonfocal, weak, and confused. Laboratory Tests 05/29/18 14:00: White Blood Count 6.8, Red Blood Count 3.39L, Hemoglobin 9.6L, Hematocrit 31.6L , Mean Corpuscular Volume 93, Mean Corpuscular Hemoglobin 28.4, Mean Corpuscular Hemoglobin Concent 30.5L, Red Cell Distribution Width 17.5H, Platelet Count 128L, Mean Platelet Volume 8.1, Neutrophils (%) (Auto) 81.8H, Lymphocytes (%) (Auto) 10.7L, Monocytes (%) (Auto) 6.8, Eosinophils (%) (Auto) 0.0, Basophils (%) (Auto) 0.7, Sodium Level 133L, Potassium Level 4.3, Chloride Level 99, Carbon Dioxide Level 23, Anion Gap 11, Blood Urea Nitrogen 24H, Creatinine 4.7H, Estimat Glomerular Filtration Rate , Glucose Level 235H, Calcium Level 9.0, Total Bilirubin 0.8, Aspartate Amino Transf (AST/SGOT) 15, Alanine Aminotransferase (ALT/SGPT) 14, Alkaline Phosphatase 201H, Total Protein 6.9, Albumin 2.4L, Globulin 4.5, Albumin/Globulin Ratio 0.5L Current Medications Medications (Trade) Dose Ordered Sig/Toby Route PRN Reason Start Time Stop Time Status Last Admin Dose Admin Acetaminophen (Tylenol) 650 mg Q4H PRN ORAL Mild Pain (Pain Scale 1-3) 05/26/18 01:15 06/25/18 01:14 Albuterol/ Ipratropium (Albuterol/ Ipratropium) 3 ml Q6H HHN 05/27/18 19:15 06/01/18 19:14 05/30/18 08:33 Aspirin (ASA) 81 mg DAILY ORAL 05/26/18 09:00 06/25/18 08:59 05/29/18 08:56 Carvedilol (Coreg) 3.125 mg EVERY 12 HOURS ORAL 05/27/18 21:00 06/26/18 20:59 05/29/18 21:12 Dextrose (Dextrose 50%) 25 ml STAT PRN IV Hypoglycemia 05/26/18 01:15 06/25/18 01:14 Dextrose (Dextrose 50%) 50 ml STAT PRN IV Hypoglycemia 05/26/18 01:15 06/25/18 01:14 Docusate Sodium (Colace) 100 mg EVERY 12 HOURS ORAL 05/26/18 09:00 06/25/18 08:59 05/29/18 21:12 Epoetin Rodo (Procrit (for ESRD on dialysis)) 7,000 units TUE-TUE-TUE SUBQ 05/26/18 21:00 06/25/18 20:59 05/29/18 21:12 Guaifenesin (Robitussin) 200 mg BID PRN ORAL For Cough 05/27/18 17:00 06/26/18 16:59 05/29/18 16:41 Heparin Sodium (Porcine) (Heparin 5000 units/ml) 5,000 units EVERY 12 HOURS SUBQ 05/26/18 09:00 06/25/18 08:59 05/29/18 21:14 Heparin Sodium (Porcine) (Heparin Sod 1000 units/ml 10ml) 2,000 unit ONCE IV 05/31/18 08:30 05/31/18 11:30 Heparin Sodium (Porcine) (Heparin) 1,000 unit POSTHD INJ 05/27/18 01:15 06/26/18 01:14 05/29/18 08:44 Iron Sucrose 100 mg/Sodium Chloride 60 ml @ 240 mls/hr BEDTIME IVPB 05/30/18 21:00 06/03/18 21:14 UNV Losartan Potassium (Cozaar) 25 mg DAILY ORAL 05/28/18 09:00 06/27/18 08:59 05/28/18 08:14 Magnesium Hydroxide (Mom) 30 ml HSPRN PRN ORAL Constipation 05/26/18 01:15 06/25/18 01:14 Methylprednisolone Sodium Succinate (Solu-MEDROL) 40 mg EVERY 12 HOURS IVP 05/28/18 21:00 05/30/18 20:59 05/29/18 21:12 Ondansetron HCl (Zofran) 4 mg Q6H PRN IVP Nausea & Vomiting 05/26/18 01:15 06/25/18 01:14 Pantoprazole (Protonix) 40 mg DAILY ORAL 05/26/18 09:00 06/25/18 08:59 05/29/18 08:56 Sodium Chloride 1,000 ml @ 500 mls/hr Q2H PRN IVLG sbp<90 during hd 05/31/18 08:25 05/31/18 23:59 Mohsen Wells MD May 30, 2018 09:05
[2018-05-30] MEDS: Aspirin Baby 81mg ORAL SCH (09:17)
[2018-05-30] MEDS: Docusate 100mg cap ORAL SCH ×2 (09:17→21:35)
[2018-05-30] MEDS: Solu-MEDROL 40mg Inj IVP SCH (09:17)
[2018-05-30] MEDS: Heparin 5000 units/ml inj SUBQ SCH ×2 (09:18→21:36)
[2018-05-30 10:17] LABS: % IRON SATURATION 36 % (15-50); IRON 65 ug/dL (50-175); TOTAL IRON BINDING CAPACITY 182 ug/dL (250-450)
[2018-05-30 12:00] VITALS: BP 107/66
[2018-05-30 16:00] VITALS: BP 122/53
[2018-05-30 20:00] VITALS: BP 111/68
[2018-05-30] MEDS: Iron Sucrose 100 MG in NS 55 ML IV SCH (21:34)
[2018-05-31] VITALS (7 sets, daily range): BP systolic 102–120; BP diastolic 45–75
[2018-05-31] MEDS: Albuterol/Ipratropium 3ml neb HHN SCH ×4 (01:29→19:48)
[2018-05-31 08:12] LABS: BASOPHILS % (AUTO) 0.9 % (0.0-2.0); EOSINOPHILS % (AUTO) 0.6 % (0.0-3.0); HEMATOCRIT 33.4 % (37.0-47.0); LYMPHOCYTES % (AUTO) 9.4 % (20.0-45.0); MEAN CORPUSCULAR VOLUME 97 FL (80-99); MONOCYTES % (AUTO) 9.6 % (1.0-10.0); NEUTROPHILS % (AUTO) 79.4 % (45.0-75.0); PLATELET COUNT 134 K/UL (150-450); RED BLOOD COUNT 3.46 M/UL (4.20-5.40); RED CELL DISTRIBUTION WIDTH 19.9 % (11.6-14.8); WHITE BLOOD COUNT 8.9 K/UL (4.8-10.8)
[2018-05-31] MEDS ORDERED: Heparin Sod 1000 units/ml 10ml IV SCH (08:30)
[2018-05-31 08:36] LABS: ALANINE AMINOTRANSFERASE 14 U/L (12-78); ALBUMIN 2.6 G/DL (3.4-5.0); ALBUMIN/GLOBULIN RATIO 0.6 (1.0-2.7); ALKALINE PHOSPHATASE 200 U/L (46-116); ANION GAP 12 mmol/L (5-15); ASPARTATE AMINO TRANSFERASE 20 U/L (15-37); BILIRUBIN,TOTAL 0.8 MG/DL (0.2-1.0); BLOOD UREA NITROGEN 36 mg/dL (7-18); CALCIUM 9.1 MG/DL (8.5-10.1); CARBON DIOXIDE 23 MMOL/L (21-32); CHLORIDE 98 MMOL/L (98-107); CREATININE 5.7 MG/DL (0.55-1.30); POTASSIUM 4.7 MMOL/L (3.5-5.1); SODIUM 132 MMOL/L (136-145)
[2018-05-31] MEDS: Docusate 100mg cap ORAL SCH ×2 (08:49→22:59)
[2018-05-31] MEDS: Aspirin Baby 81mg ORAL SCH (08:49)
[2018-05-31] MEDS: Losartan 25mg tab ORAL SCH (08:50)
[2018-05-31] MEDS: Heparin 5000 units/ml inj SUBQ SCH ×2 (08:51→23:02)
[2018-05-31] MEDS ORDERED: Tubing IV Secondary IV ONE (10:14)
[2018-05-31] MEDS ORDERED: NS 275ml ONE (10:14)
--- NOTE | 2018-05-31 12:18 | Nephrology Progress Note ---
Assessment/Plan Plan 2 D Echo LVEF 15% !!! Previously ~20% about 3 months ago. Cardiology to advise. Note hypotension - improving. Anasarca - frequent HD as tolerated ESRD + Intractable CHF ----> HD frequently, fluid restriction. May be in a new unrelenting Cardiorenal Failure Try to add Entresto To Cardiology. Subjective Subjective States she's much more SOB! despite increasing UF on HD, limiting fluid intake, increased breathing therapy. Objective Objective Last 24 Hour Vital Signs Date Time Temp Pulse Resp B/P (MAP) Pulse Ox O2 Delivery O2 Flow Rate FiO2 05/31/18 09:00 Nasal Cannula 3.0 05/31/18 08:50 102/69 05/31/18 08:50 88 102/69 05/31/18 08:00 96.9 88 20 102/69 (80) 100 96.9 05/31/18 08:00 82 05/31/18 07:55 66 20 100 Nasal Cannula 2.0 28 05/31/18 07:55 Nasal Cannula 2.0 28 05/31/18 07:45 99 Nasal Cannula 2.0 28 05/31/18 07:45 61 22 99 Nasal Cannula 2.0 28 05/31/18 04:00 96.6 64 20 120/75 (90) 97 96.6 05/31/18 04:00 76 05/31/18 01:30 72 20 98 Nasal Cannula 2.0 28 05/31/18 01:29 70 20 95 Nasal Cannula 2.0 28 05/31/18 00:00 97.3 89 20 110/71 (84) 98 97.3 05/30/18 21:34 76 111/68 05/30/18 21:00 Nasal Cannula 3.0 05/30/18 20:00 73 20 97 Nasal Cannula 2.0 28 05/30/18 20:00 76 05/30/18 20:00 96.6 85 20 111/68 (82) 99 96.6 05/30/18 20:00 98 Nasal Cannula 2.0 28 05/30/18 20:00 Nasal Cannula 2.0 28 05/30/18 20:00 76 20 100 Nasal Cannula 2.0 28 05/30/18 16:00 76 05/30/18 16:00 97.2 66 20 122/53 (76) 97 97.2 05/30/18 13:45 79 18 100 Nasal Cannula 2.0 28 05/30/18 13:35 75 18 97 Nasal Cannula 2.0 28 Intake and Output 05/30/18 05/31/18 19:00 07:00 Intake Total 360 ml 120 ml Balance 360 ml 120 ml Intake Oral 360 ml 120 ml # Bowel Movements 1 1 Laboratory Tests 05/31/18 07:15: White Blood Count 8.9, Red Blood Count 3.46L, Hemoglobin 10.0L, Hematocrit 33.4L , Mean Corpuscular Volume 97, Mean Corpuscular Hemoglobin 28.8, Mean Corpuscular Hemoglobin Concent 29.8L, Red Cell Distribution Width 19.9H, Platelet Count 134L, Mean Platelet Volume 8.2, Neutrophils (%) (Auto) 79.4H, Lymphocytes (%) (Auto) 9.4L, Monocytes (%) (Auto) 9.6, Eosinophils (%) (Auto) 0.6, Basophils (%) (Auto) 0.9, Sodium Level 132L, Potassium Level 4.7, Chloride Level 98, Carbon Dioxide Level 23, Anion Gap 12, Blood Urea Nitrogen 36H, Creatinine 5.7H, Estimat Glomerular Filtration Rate , Glucose Level 172H, Calcium Level 9.1, Magnesium Level 2.1, Total Bilirubin 0.8, Aspartate Amino Transf (AST/SGOT) 20, Alanine Aminotransferase (ALT/SGPT) 14, Alkaline Phosphatase 200H, Total Protein 7.2, Albumin 2.6L, Globulin 4.6, Albumin/ Globulin Ratio 0.6L Height (Feet): 5 Height (Inches): 5.00 Weight (Pounds): 206 Objective CV RR 2/6 SM Lungs B wheezes. Abs SNT. BS + E ++ edema. L arm edema>>Rt. Cristy Clemente MD May 31, 2018 12:18
--- NOTE | 2018-05-31 18:02 | Cardiology Progress Note ---
Assessment/Plan Assessment/Plan The patient has end stage heart failure, right and left, she is in pulmonary edema and has anasarca and liver enlargement due to right heart failure, she has poor prognosis she has defibrillator, which was interrogated recently and is functioning fine she is nto a candidate for advance ehart failure therapy due to her age and is not a candidate for dobumatime drip due to v tach I noticed that she started on steroids, but she has heart failure, not COPD, in my opinion, continue supportive therapy previously she was tried on Entresto and she became too hypotensive, will try again she is not ambulatory, so maybe she will tolerate better, but she has to be off Losartan for 36 hours before starting Entresto by protocol Subjective Subjective has severe dyspnea and wheezing Objective Last 24 Hour Vital Signs Date Time Temp Pulse Resp B/P (MAP) Pulse Ox O2 Delivery O2 Flow Rate FiO2 05/31/18 14:17 69 20 100 Nasal Cannula 2.0 28 05/31/18 14:00 67 22 99 Nasal Cannula 2.0 28 05/31/18 12:00 97.7 87 20 106/54 (71) 100 97.7 05/31/18 12:00 86 05/31/18 09:00 Nasal Cannula 3.0 05/31/18 08:50 102/69 05/31/18 08:50 88 102/69 05/31/18 08:00 96.9 88 20 102/69 (80) 100 96.9 05/31/18 08:00 82 05/31/18 07:55 66 20 100 Nasal Cannula 2.0 05/31/18 07:55 Nasal Cannula 2.0 05/31/18 07:45 99 Nasal Cannula 2.0 05/31/18 07:45 61 22 99 Nasal Cannula 2.0 05/31/18 04:00 96.6 64 20 120/75 (90) 97 96.6 05/31/18 04:00 76 05/31/18 01:30 72 20 98 Nasal Cannula 2.0 05/31/18 01:29 70 20 95 Nasal Cannula 2.0 05/31/18 00:00 97.3 89 20 110/71 (84) 98 97.3 05/30/18 21:34 76 111/68 05/30/18 21:00 Nasal Cannula 3.0 05/30/18 20:00 73 20 97 Nasal Cannula 2.0 28 05/30/18 20:00 76 05/30/18 20:00 96.6 85 20 111/68 (82) 99 96.6 05/30/18 20:00 98 Nasal Cannula 2.0 28 05/30/18 20:00 Nasal Cannula 2.0 28 05/30/18 20:00 76 20 100 Nasal Cannula 2.0 28 General Appearance: moderate distress EENT: PERRL/EOMI Neck: JVD - very severe Rhythm: Afib Cardiovascular: bradycardia Respiratory/Chest: crackles/rales, rhonchi - bilaterally Abdomen: other - ascites Extremities: severe edema, other - anasarca Intake and Output 05/30/18 05/31/18 19:00 07:00 Intake Total 360 ml 120 ml Balance 360 ml 120 ml Intake Oral 360 ml 120 ml # Bowel Movements 1 1 Laboratory Tests Test 05/31/18 07:15 White Blood Count 8.9 K/UL (4.8-10.8) Red Blood Count 3.46 M/UL (4.20-5.40) L Hemoglobin 10.0 G/DL (12.0-16.0) L Hematocrit 33.4 % (37.0-47.0) L Mean Corpuscular Volume 97 FL (80-99) Mean Corpuscular Hemoglobin 28.8 PG (27.0-31.0) Mean Corpuscular Hemoglobin Concent 29.8 G/DL (32.0-36.0) L Red Cell Distribution Width 19.9 % (11.6-14.8) H Platelet Count 134 K/UL (150-450) L Mean Platelet Volume 8.2 FL (6.5-10.1) Neutrophils (%) (Auto) 79.4 % (45.0-75.0) H Lymphocytes (%) (Auto) 9.4 % (20.0-45.0) L Monocytes (%) (Auto) 9.6 % (1.0-10.0) Eosinophils (%) (Auto) 0.6 % (0.0-3.0) Basophils (%) (Auto) 0.9 % (0.0-2.0) Sodium Level 132 MMOL/L (136-145) L Potassium Level 4.7 MMOL/L (3.5-5.1) Chloride Level 98 MMOL/L (98-107) Carbon Dioxide Level 23 MMOL/L (21-32) Anion Gap 12 mmol/L (5-15) Blood Urea Nitrogen 36 mg/dL (7-18) H Creatinine 5.7 MG/DL (0.55-1.30) H Estimat Glomerular Filtration Rate mL/min (>60) Glucose Level 172 MG/DL (74-106) H Calcium Level 9.1 MG/DL (8.5-10.1) Magnesium Level 2.1 MG/DL (1.8-2.4) Total Bilirubin 0.8 MG/DL (0.2-1.0) Aspartate Amino Transf (AST/SGOT) 20 U/L (15-37) Alanine Aminotransferase (ALT/SGPT) 14 U/L (12-78) Alkaline Phosphatase 200 U/L (46-116) H Total Protein 7.2 G/DL (6.4-8.2) Albumin 2.6 G/DL (3.4-5.0) L Globulin 4.6 g/dL Albumin/Globulin Ratio 0.6 (1.0-2.7) L Megan Arthur MD May 31, 2018 18:02
[2018-05-31] MEDS ORDERED: Heparin 2000 units/Ns 1000ml IV SCH (18:45)
[2018-05-31] MEDS: Heparin Sod 1000 units/ml 10ml IV SCH (18:53)
--- NOTE | 2018-05-31 19:24 | Pulmonology Progress Note ---
Assessment/Plan Assessment/Plan IMPRESSION: 1. Evidence of pulmonary edema. with poor EF 2. COPD with acute exacerbation. 3. Protein-calorie malnutrition, severe. 4. Troponin leak, possible non-STEMI. 5. Chronic renal failure. 6. Hyperglycemia. PLAN IV steroids off respiratory care as is keep negative and monitor monitor clinically cards input reviewed update management monitor for cardiac asthma no distress at present impression, plan, and exam edited and reviewed in detail care discussed with RN Subjective ROS Limited/Unobtainable: Yes Allergies: Coded Allergies: MIDAZOLAM (Verified Allergy, Unknown, 05/25/18) Subjective care noted findings reviewed poor EF fluid issues noted Objective Last 24 Hour Vital Signs Date Time Temp Pulse Resp B/P (MAP) Pulse Ox O2 Delivery O2 Flow Rate FiO2 05/31/18 14:17 69 20 100 Nasal Cannula 2.0 28 05/31/18 14:00 67 22 99 Nasal Cannula 2.0 28 05/31/18 12:00 97.7 87 20 106/54 (71) 100 97.7 05/31/18 12:00 86 05/31/18 09:00 Nasal Cannula 3.0 05/31/18 08:50 102/69 05/31/18 08:50 88 102/69 05/31/18 08:00 96.9 88 20 102/69 (80) 100 96.9 05/31/18 08:00 82 05/31/18 07:55 66 20 100 Nasal Cannula 2.0 28 05/31/18 07:55 Nasal Cannula 2.0 28 05/31/18 07:45 99 Nasal Cannula 2.0 28 05/31/18 07:45 61 22 99 Nasal Cannula 2.0 28 05/31/18 04:00 96.6 64 20 120/75 (90) 97 96.6 05/31/18 04:00 76 05/31/18 01:30 72 20 98 Nasal Cannula 2.0 28 05/31/18 01:29 70 20 95 Nasal Cannula 2.0 28 05/31/18 00:00 97.3 89 20 110/71 (84) 98 97.3 05/30/18 21:34 76 111/68 05/30/18 21:00 Nasal Cannula 3.0 05/30/18 20:00 73 20 97 Nasal Cannula 2.0 28 05/30/18 20:00 76 05/30/18 20:00 96.6 85 20 111/68 (82) 99 96.6 05/30/18 20:00 98 Nasal Cannula 2.0 28 05/30/18 20:00 Nasal Cannula 2.0 28 05/30/18 20:00 76 20 100 Nasal Cannula 2.0 28 Intake and Output 05/30/18 05/31/18 19:00 07:00 Intake Total 360 ml 120 ml Balance 360 ml 120 ml Intake Oral 360 ml 120 ml # Bowel Movements 1 1 Objective GENERAL: A well-developed female, advanced age. NAD NAD HEENT: Negative. NECK: Supple. Without jugular venous distention. LUNGS: some crackles noted at the bases. no wheeze CARDIAC: Normal S1, S2. Regular rate and rhythm without murmurs, rubs, or gallops. ABDOMEN: Soft, nontender, and nondistended. EXTREMITIES: some edema. No cyanosis or clubbing. NEUROLOGIC: Grossly nonfocal, weak, and confused. Laboratory Tests 05/31/18 07:15: White Blood Count 8.9, Red Blood Count 3.46L, Hemoglobin 10.0L, Hematocrit 33.4L , Mean Corpuscular Volume 97, Mean Corpuscular Hemoglobin 28.8, Mean Corpuscular Hemoglobin Concent 29.8L, Red Cell Distribution Width 19.9H, Platelet Count 134L, Mean Platelet Volume 8.2, Neutrophils (%) (Auto) 79.4H, Lymphocytes (%) (Auto) 9.4L, Monocytes (%) (Auto) 9.6, Eosinophils (%) (Auto) 0.6, Basophils (%) (Auto) 0.9, Sodium Level 132L, Potassium Level 4.7, Chloride Level 98, Carbon Dioxide Level 23, Anion Gap 12, Blood Urea Nitrogen 36H, Creatinine 5.7H, Estimat Glomerular Filtration Rate , Glucose Level 172H, Calcium Level 9.1, Magnesium Level 2.1, Total Bilirubin 0.8, Aspartate Amino Transf (AST/SGOT) 20, Alanine Aminotransferase (ALT/SGPT) 14, Alkaline Phosphatase 200H, Total Protein 7.2, Albumin 2.6L, Globulin 4.6, Albumin/ Globulin Ratio 0.6L Current Medications Medications (Trade) Dose Ordered Sig/Toby Route PRN Reason Start Time Stop Time Status Last Admin Dose Admin Acetaminophen (Tylenol) 650 mg Q4H PRN ORAL Mild Pain (Pain Scale 1-3) 05/26/18 01:15 06/25/18 01:14 Albuterol/ Ipratropium (Albuterol/ Ipratropium) 3 ml Q6H HHN 05/31/18 20:15 06/25/18 20:14 Aspirin (ASA) 81 mg DAILY ORAL 05/26/18 09:00 06/25/18 08:59 05/31/18 08:49 Carvedilol (Coreg) 3.125 mg EVERY 12 HOURS ORAL 05/27/18 21:00 06/26/18 20:59 05/31/18 08:50 Dextrose (Dextrose 50%) 25 ml STAT PRN IV Hypoglycemia 05/26/18 01:15 06/25/18 01:14 Dextrose (Dextrose 50%) 50 ml STAT PRN IV Hypoglycemia 05/26/18 01:15 06/25/18 01:14 Docusate Sodium (Colace) 100 mg EVERY 12 HOURS ORAL 05/26/18 09:00 06/25/18 08:59 05/31/18 08:49 Epoetin Rodo (Procrit (for ESRD on dialysis)) 7,000 units TUE-TUE-TUE SUBQ 05/26/18 21:00 06/25/18 20:59 05/29/18 21:12 Guaifenesin (Robitussin) 200 mg BID PRN ORAL For Cough 05/27/18 17:00 06/26/18 16:59 05/29/18 16:41 Heparin Sodium (Porcine) (Heparin 5000 units/ml) 5,000 units EVERY 12 HOURS SUBQ 05/26/18 09:00 06/25/18 08:59 05/30/18 21:36 Heparin Sodium (Porcine) (Heparin Sod 1000 units/ml 10ml) 2,000 unit ONCE IV 05/31/18 18:45 06/30/18 18:44 05/31/18 18:53 Heparin Sodium (Porcine) (Heparin Sod 1000 units/ml 10ml) 2,000 unit ONCE PRN IV FOR DIALYSIS USE 06/01/18 12:30 06/01/18 23:59 Heparin Sodium (Porcine) (Heparin) 1,000 unit POSTHD INJ 05/27/18 01:15 06/26/18 01:14 05/29/18 08:44 Iron Sucrose 100 mg/Sodium Chloride 60 ml @ 240 mls/hr BEDTIME IV 05/30/18 21:00 06/03/18 21:14 05/30/18 21:34 Magnesium Hydroxide (Mom) 30 ml HSPRN PRN ORAL Constipation 05/26/18 01:15 06/25/18 01:14 Ondansetron HCl (Zofran) 4 mg Q6H PRN IVP Nausea & Vomiting 05/26/18 01:15 06/25/18 01:14 Pantoprazole (Protonix) 40 mg DAILY ORAL 05/26/18 09:00 06/25/18 08:59 05/31/18 08:49 Sodium Chloride 1,000 ml @ 500 mls/hr Q2H PRN IVLG sbp<90 during hd 05/31/18 18:45 05/31/18 23:59 Mohsen Wells MD May 31, 2018 19:24
[2018-05-31] MEDS: Epogen (for ESRD on dialysis) SUBQ SCH (22:59)
[2018-05-31] MEDS: Iron Sucrose 100 MG in NS 55 ML IV SCH (22:59)
[2018-06-01] VITALS (7 sets, daily range): BP systolic 104–136; BP diastolic 57–82
[2018-06-01] MEDS: Albuterol/Ipratropium 3ml neb HHN SCH ×4 (01:42→19:02)
--- NOTE | 2018-06-01 08:39 | Nephrology Progress Note ---
Assessment/Plan Plan 2 D Echo LVEF 15% !!! Previously ~20% about 3 months ago. Cardiology to advise. Note hypotension - improving. Anasarca - frequent HD as tolerated ESRD + Intractable CHF ----> HD frequently, fluid restriction. For Hd today May be in a new unrelenting Cardiorenal Failure Try to add Entresto the low dose today. Was on it before. [facility]iology. Subjective Subjective States she's much more SOB! despite increasing UF on HD, limiting fluid intake, increased breathing therapy. Objective Objective Last 24 Hour Vital Signs Date Time Temp Pulse Resp B/P (MAP) Pulse Ox O2 Delivery O2 Flow Rate FiO2 06/01/18 07:49 90 20 98 Nasal Cannula 2.0 28 06/01/18 07:49 Nasal Cannula 2.0 06/01/18 07:49 98 Nasal Cannula 2.0 28 06/01/18 07:49 Nasal Cannula 2.0 28 06/01/18 04:25 97.5 77 16 109/58 (75) 94 97.5 06/01/18 04:00 96 06/01/18 04:00 97.5 77 16 104/58 (73) 94 97.5 06/01/18 01:53 96 20 99 Nasal Cannula 2.0 28 06/01/18 01:42 96 20 98 Nasal Cannula 2.0 28 06/01/18 00:32 97.7 71 19 127/57 (80) 99 97.7 05/31/18 23:03 85 110/65 05/31/18 21:05 Nasal Cannula 2.0 05/31/18 21:00 Nasal Cannula 3.0 05/31/18 20:00 97.6 85 21 110/65 (80) 99 97.6 05/31/18 20:00 86 05/31/18 19:58 91 20 100 Nasal Cannula 2.0 28 05/31/18 19:58 97.6 85 21 110/65 (80) 99 97.6 05/31/18 19:52 Nasal Cannula 2.0 05/31/18 19:48 89 20 97 Nasal Cannula 2.0 28 05/31/18 19:47 Nasal Cannula 2.0 28 05/31/18 19:47 97 Nasal Cannula 2.0 28 05/31/18 16:00 97.5 88 20 117/45 (69) 100 97.5 05/31/18 16:00 88 05/31/18 14:17 69 20 100 Nasal Cannula 2.0 28 05/31/18 14:00 67 22 99 Nasal Cannula 2.0 28 05/31/18 12:00 97.7 87 20 106/54 (71) 100 97.7 05/31/18 12:00 86 05/31/18 09:00 Nasal Cannula 3.0 05/31/18 08:50 102/69 05/31/18 08:50 88 102/69 Intake and Output 05/31/18 06/01/18 19:00 07:00 Intake Total 360 ml 60 ml Balance 360 ml 60 ml Intake Oral 360 ml IV Total 60 ml # Bowel Movements 1 Height (Feet): 5 Height (Inches): 5.00 Weight (Pounds): 205 Objective CV RR 2/6 SM Lungs B wheezes. Abs SNT. BS + E ++ edema. L arm edema>>Rt. Cristy Clemente MD Jun 01, 2018 08:39
--- NOTE | 2018-06-01 08:52 | Pulmonology Progress Note ---
Assessment/Plan Assessment/Plan IMPRESSION: 1. Evidence of pulmonary edema. with poor EF 2. COPD with acute exacerbation. 3. Protein-calorie malnutrition, severe. 4. Troponin leak, possible non-STEMI. 5. Chronic renal failure. 6. Hyperglycemia. PLAN IV steroids off and stable respiratory care as is keep negative and monitor monitor clinically cards input reviewed update management monitor for cardiac asthma no distress at present continue same impression, plan, and exam edited and reviewed in detail care discussed with RN Subjective Allergies: Coded Allergies: MIDAZOLAM (Verified Allergy, Unknown, 05/25/18) Subjective care noted findings reviewed poor EF fluid issues noted Objective Last 24 Hour Vital Signs Date Time Temp Pulse Resp B/P (MAP) Pulse Ox O2 Delivery O2 Flow Rate FiO2 06/01/18 07:49 90 20 98 Nasal Cannula 2.0 06/01/18 07:49 Nasal Cannula 2.0 06/01/18 07:49 98 Nasal Cannula 2.0 28 06/01/18 07:49 Nasal Cannula 2.0 28 06/01/18 04:25 97.5 77 16 109/58 (75) 94 97.5 06/01/18 04:00 96 06/01/18 04:00 97.5 77 16 104/58 (73) 94 97.5 06/01/18 01:53 96 20 99 Nasal Cannula 2.0 06/01/18 01:42 96 20 98 Nasal Cannula 2.0 06/01/18 00:32 97.7 71 19 127/57 (80) 99 97.7 05/31/18 23:03 85 110/65 05/31/18 21:05 Nasal Cannula 2.0 05/31/18 21:00 Nasal Cannula 3.0 05/31/18 20:00 97.6 85 21 110/65 (80) 99 97.6 05/31/18 20:00 86 05/31/18 19:58 91 20 100 Nasal Cannula 2.0 05/31/18 19:58 97.6 85 21 110/65 (80) 99 97.6 05/31/18 19:52 Nasal Cannula 2.0 05/31/18 19:48 89 20 97 Nasal Cannula 2.0 05/31/18 19:47 Nasal Cannula 2.0 05/31/18 19:47 97 Nasal Cannula 2.0 05/31/18 16:00 97.5 88 20 117/45 (69) 100 97.5 05/31/18 16:00 88 05/31/18 14:17 69 20 100 Nasal Cannula 2.0 28 05/31/18 14:00 67 22 99 Nasal Cannula 2.0 28 05/31/18 12:00 97.7 87 20 106/54 (71) 100 97.7 05/31/18 12:00 86 05/31/18 09:00 Nasal Cannula 3.0 05/31/18 08:50 102/69 05/31/18 08:50 88 102/69 Intake and Output 05/31/18 06/01/18 19:00 07:00 Intake Total 360 ml 60 ml Balance 360 ml 60 ml Intake Oral 360 ml IV Total 60 ml # Bowel Movements 1 Objective GENERAL: A well-developed female, advanced age. NAD NAD HEENT: Negative. NECK: Supple. Without jugular venous distention. LUNGS: minimal crackles noted at the bases. no wheeze CARDIAC: Normal S1, S2. Regular rate and rhythm without murmurs, rubs, or gallops. ABDOMEN: Soft, nontender, and nondistended. EXTREMITIES: some edema. No cyanosis or clubbing. NEUROLOGIC: Grossly nonfocal, weak, and confused. Current Medications Medications (Trade) Dose Ordered Sig/Toby Route PRN Reason Start Time Stop Time Status Last Admin Dose Admin Acetaminophen (Tylenol) 650 mg Q4H PRN ORAL Mild Pain (Pain Scale 1-3) 05/26/18 01:15 06/25/18 01:14 Albuterol/ Ipratropium (Albuterol/ Ipratropium) 3 ml Q6H HHN 05/31/18 20:15 06/25/18 20:14 06/01/18 01:42 Aspirin (ASA) 81 mg DAILY ORAL 05/26/18 09:00 06/25/18 08:59 05/31/18 08:49 Carvedilol (Coreg) 3.125 mg EVERY 12 HOURS ORAL 05/27/18 21:00 06/26/18 20:59 05/31/18 23:03 Dextrose (Dextrose 50%) 25 ml STAT PRN IV Hypoglycemia 05/26/18 01:15 06/25/18 01:14 Dextrose (Dextrose 50%) 50 ml STAT PRN IV Hypoglycemia 05/26/18 01:15 06/25/18 01:14 Docusate Sodium (Colace) 100 mg EVERY 12 HOURS ORAL 05/26/18 09:00 06/25/18 08:59 05/31/18 22:59 Epoetin Rodo (Procrit (for ESRD on dialysis)) 7,000 units TUE-TUE-TUE SUBQ 05/26/18 21:00 06/25/18 20:59 05/31/18 22:59 Guaifenesin (Robitussin) 200 mg BID PRN ORAL For Cough 05/27/18 17:00 06/26/18 16:59 05/29/18 16:41 Heparin Sodium (Porcine) (Heparin 5000 units/ml) 5,000 units EVERY 12 HOURS SUBQ 05/26/18 09:00 06/25/18 08:59 05/31/18 23:02 Heparin Sodium (Porcine) (Heparin Sod 1000 units/ml 10ml) 2,000 unit ONCE IV 05/31/18 18:45 06/30/18 18:44 05/31/18 18:53 Heparin Sodium (Porcine) (Heparin Sod 1000 units/ml 10ml) 2,000 unit ONCE PRN IV FOR DIALYSIS USE 06/01/18 12:30 06/01/18 23:59 Heparin Sodium (Porcine) (Heparin) 1,000 unit POSTHD INJ 05/27/18 01:15 06/26/18 01:14 05/29/18 08:44 Iron Sucrose 100 mg/Sodium Chloride 60 ml @ 240 mls/hr BEDTIME IV 05/30/18 21:00 06/03/18 21:14 05/31/18 22:59 Magnesium Hydroxide (Mom) 30 ml HSPRN PRN ORAL Constipation 05/26/18 01:15 06/25/18 01:14 Ondansetron HCl (Zofran) 4 mg Q6H PRN IVP Nausea & Vomiting 05/26/18 01:15 06/25/18 01:14 Pantoprazole (Protonix) 40 mg DAILY ORAL 05/26/18 09:00 06/25/18 08:59 05/31/18 08:49 Mohsen Wells MD Jun 01, 2018 08:52
[2018-06-01] MEDS: Docusate 100mg cap ORAL SCH ×2 (08:58→20:21)
[2018-06-01] MEDS: Aspirin Baby 81mg ORAL SCH (08:58)
[2018-06-01] MEDS: Heparin 5000 units/ml inj SUBQ SCH ×2 (08:59→20:23)
[2018-06-01] MEDS ORDERED: Heparin Sod 1000 units/ml 10ml IV PRN (12:30)
--- NOTE | 2018-06-01 16:00 | Diagnostic Imaging Report ---
APPROVED REPORT CPT Code: 07930 Present Symptoms Upper Extremity Edema: Left Comments: Bethanie cath LEFT UPPER EXTREMITY: Imaging reveals patency of the internal jugular, subclavian, axillary and brachial veins.The basilic vein is also patent. Doppler indicates normal spontaneous flow within these venous segments. The cephalic vein was not well visualized.
[2018-06-01] MEDS: Heparin Sod 1000 units/ml 10ml IV SCH (17:26)
[2018-06-01] MEDS: Iron Sucrose 100 MG in NS 55 ML IV SCH (20:21)
[2018-06-02] VITALS: BP 106/73
[2018-06-02] MEDS: Albuterol/Ipratropium 3ml neb HHN SCH ×4 (01:11→20:01)
[2018-06-02 04:00] VITALS: BP 104/78
--- NOTE | 2018-06-02 08:52 | Pulmonology Progress Note ---
Assessment/Plan Assessment/Plan IMPRESSION: 1. Evidence of pulmonary edema. with poor EF 2. COPD with acute exacerbation. 3. Protein-calorie malnutrition, severe. 4. Troponin leak, possible non-STEMI. 5. Chronic renal failure. 6. Hyperglycemia. 7. NSVT PLAN IV steroids off respiratory care as is keep negative and monitor monitor clinically cards input reviewed; monitor for arrythmia orders and nursing notes reviewed monitor for cardiac asthma no distress at present continue same impression, plan, and exam edited and reviewed in detail care discussed with RN Subjective ROS Limited/Unobtainable: Yes Allergies: Coded Allergies: MIDAZOLAM (Verified Allergy, Unknown, 05/25/18) Subjective had episode of VT findings reviewed poor EF noted fluid issues and shifts reviewed Objective Last 24 Hour Vital Signs Date Time Temp Pulse Resp B/P (MAP) Pulse Ox O2 Delivery O2 Flow Rate FiO2 06/02/18 08:02 96 Nasal Cannula 3.0 32 06/02/18 08:02 Nasal Cannula 3.0 32 06/02/18 07:59 68 20 96 Nasal Cannula 3.0 32 06/02/18 04:00 85 06/02/18 04:00 97.0 70 19 104/78 (87) 98 97.0 06/02/18 01:24 58 20 97 Nasal Cannula 3.0 32 06/02/18 01:15 60 22 98 Nasal Cannula 3.0 32 06/02/18 00:00 97.0 85 19 106/73 (84) 98 97.0 06/02/18 00:00 85 06/01/18 21:00 Nasal Cannula 2.0 06/01/18 20:21 83 136/67 06/01/18 20:00 82 06/01/18 20:00 97.2 83 19 136/67 (90) 100 97.2 06/01/18 19:16 68 18 97 Nasal Cannula 3.0 32 06/01/18 19:15 80 18 94 Nasal Cannula 3.0 32 06/01/18 19:06 94 Nasal Cannula 3.0 32 06/01/18 19:06 Nasal Cannula 3.0 32 06/01/18 19:05 78 20 94 Nasal Cannula 3.0 32 06/01/18 16:00 85 06/01/18 16:00 96.8 97 16 108/82 (91) 97 96.8 06/01/18 13:47 55 20 99 Nasal Cannula 2.0 28 06/01/18 13:39 51 20 99 Nasal Cannula 2.0 28 06/01/18 12:00 76 06/01/18 12:00 96.8 76 16 136/74 (94) 96 96.8 06/01/18 09:00 Nasal Cannula 3.0 06/01/18 08:58 96 119/70 Intake and Output 06/01/18 06/02/18 19:00 07:00 Intake Total 480 ml 200 ml Balance 480 ml 200 ml Intake Oral 480 ml 200 ml Objective GENERAL: A well-developed female, advanced age. NAD NAD HEENT: Negative. NECK: Supple. Without jugular venous distention. LUNGS: some crackles noted at the bases. no wheeze CARDIAC: Normal S1, S2. Regular rate and rhythm without murmurs, rubs, or gallops. ABDOMEN: Soft, nontender, and nondistended. no HSM EXTREMITIES: some edema. No cyanosis or clubbing. NEUROLOGIC: Grossly nonfocal, weak, and confused. Current Medications Medications (Trade) Dose Ordered Sig/Toby Route PRN Reason Start Time Stop Time Status Last Admin Dose Admin Acetaminophen (Tylenol) 650 mg Q4H PRN ORAL Mild Pain (Pain Scale 1-3) 05/26/18 01:15 06/25/18 01:14 Albuterol/ Ipratropium (Albuterol/ Ipratropium) 3 ml Q6H HHN 05/31/18 20:15 06/25/18 20:14 06/02/18 07:59 Aspirin (ASA) 81 mg DAILY ORAL 05/26/18 09:00 06/25/18 08:59 06/01/18 08:58 Carvedilol (Coreg) 3.125 mg EVERY 12 HOURS ORAL 05/27/18 21:00 06/26/18 20:59 06/01/18 20:21 Dextrose (Dextrose 50%) 25 ml STAT PRN IV Hypoglycemia 05/26/18 01:15 06/25/18 01:14 Dextrose (Dextrose 50%) 50 ml STAT PRN IV Hypoglycemia 05/26/18 01:15 06/25/18 01:14 Docusate Sodium (Colace) 100 mg EVERY 12 HOURS ORAL 05/26/18 09:00 06/25/18 08:59 06/01/18 20:21 Epoetin Rodo (Procrit (for ESRD on dialysis)) 7,000 units MON-TUE-TUE SUBQ 05/26/18 21:00 06/25/18 20:59 05/31/18 22:59 Guaifenesin (Robitussin) 200 mg BID PRN ORAL For Cough 05/27/18 17:00 06/26/18 16:59 05/29/18 16:41 Heparin Sodium (Porcine) (Heparin 5000 units/ml) 5,000 units EVERY 12 HOURS SUBQ 05/26/18 09:00 06/25/18 08:59 06/01/18 20:23 Heparin Sodium (Porcine) (Heparin Sod 1000 units/ml 10ml) 2,000 unit ONCE IV 05/31/18 18:45 06/30/18 18:44 05/31/18 18:53 Heparin Sodium (Porcine) (Heparin) 1,000 unit POSTHD INJ 05/27/18 01:15 06/26/18 01:14 05/29/18 08:44 Iron Sucrose 100 mg/Sodium Chloride 60 ml @ 240 mls/hr BEDTIME IV 05/30/18 21:00 06/03/18 21:14 06/01/18 20:21 Magnesium Hydroxide (Mom) 30 ml HSPRN PRN ORAL Constipation 05/26/18 01:15 06/25/18 01:14 06/01/18 20:21 Ondansetron HCl (Zofran) 4 mg Q6H PRN IVP Nausea & Vomiting 05/26/18 01:15 06/25/18 01:14 Pantoprazole (Protonix) 40 mg DAILY ORAL 05/26/18 09:00 06/25/18 08:59 06/01/18 08:58 Mohsen Wells MD Jun 02, 2018 08:52
--- NOTE | 2018-06-02 08:54 | Nephrology Progress Note ---
Assessment/Plan Plan 2 D Echo LVEF 15% !!! Previously ~20% about 3 months ago. Cardiology to advise. Note hypotension - improving. Anasarca - frequent HD as tolerated ESRD + Intractable CHF ----> HD frequently, fluid restriction. For Hd today May be in a new unrelenting Cardiorenal Failure Try to add Entresto the low dose today. Was on it before. Spoke to [facility] - trying to get the medication today!. Move to daily HD/UF! DW Cardiology. Subjective Subjective Extremely SOB!! Objective Objective Last 24 Hour Vital Signs Date Time Temp Pulse Resp B/P (MAP) Pulse Ox O2 Delivery O2 Flow Rate FiO2 06/02/18 08:02 96 Nasal Cannula 3.0 32 06/02/18 08:02 Nasal Cannula 3.0 32 06/02/18 07:59 68 20 96 Nasal Cannula 3.0 32 06/02/18 04:00 85 06/02/18 04:00 97.0 70 19 104/78 (87) 98 97.0 06/02/18 01:24 58 20 97 Nasal Cannula 3.0 32 06/02/18 01:15 60 22 98 Nasal Cannula 3.0 32 06/02/18 00:00 97.0 85 19 106/73 (84) 98 97.0 06/02/18 00:00 85 06/01/18 21:00 Nasal Cannula 2.0 06/01/18 20:21 83 136/67 06/01/18 20:00 82 06/01/18 20:00 97.2 83 19 136/67 (90) 100 97.2 06/01/18 19:16 68 18 97 Nasal Cannula 3.0 32 06/01/18 19:15 80 18 94 Nasal Cannula 3.0 32 06/01/18 19:06 94 Nasal Cannula 3.0 32 06/01/18 19:06 Nasal Cannula 3.0 32 06/01/18 19:05 78 20 94 Nasal Cannula 3.0 32 06/01/18 16:00 85 06/01/18 16:00 96.8 97 16 108/82 (91) 97 96.8 06/01/18 13:47 55 20 99 Nasal Cannula 2.0 28 06/01/18 13:39 51 20 99 Nasal Cannula 2.0 28 06/01/18 12:00 76 06/01/18 12:00 96.8 76 16 136/74 (94) 96 96.8 06/01/18 09:00 Nasal Cannula 3.0 06/01/18 08:58 96 119/70 Intake and Output 06/01/18 06/02/18 19:00 07:00 Intake Total 480 ml 200 ml Balance 480 ml 200 ml Intake Oral 480 ml 200 ml Height (Feet): 5 Height (Inches): 5.00 Weight (Pounds): 209 Objective CV RR 2/6 SM Lungs B wheezes. Abs SNT. BS + E ++ edema. L arm edema>>Rt. Cristy Clemente MD Jun 02, 2018 08:54
[2018-06-02] MEDS: Aspirin Baby 81mg ORAL SCH (08:56)
[2018-06-02] MEDS: Docusate 100mg cap ORAL SCH ×2 (08:58→20:45)
[2018-06-02 09:00] VITALS: BP 110/75
[2018-06-02] MEDS: Heparin 5000 units/ml inj SUBQ SCH ×2 (09:00→20:46)
[2018-06-02] MEDS ORDERED: Dyna-Hex 2% Top Sol 2oz TOPIC ONE (11:00)
[2018-06-02 12:00] VITALS: BP 141/79
[2018-06-02 16:00] VITALS: BP 107/49
--- NOTE | 2018-06-02 16:07 | Cardiology Progress Note ---
Assessment/Plan Assessment/Plan will start entresto, watch for BP drop Subjective Subjective no significant changes, weak, short of breath and confused Objective Last 24 Hour Vital Signs Date Time Temp Pulse Resp B/P (MAP) Pulse Ox O2 Delivery O2 Flow Rate FiO2 06/02/18 13:03 54 20 98 Nasal Cannula 3.0 32 06/02/18 12:56 53 20 95 Nasal Cannula 3.0 32 06/02/18 12:00 83 06/02/18 12:00 98.9 80 17 141/79 (99) 96 98.9 06/02/18 09:00 99.1 93 17 110/75 (87) 99 99.1 06/02/18 08:57 93 110/75 06/02/18 08:06 65 20 99 Nasal Cannula 3.0 32 06/02/18 08:02 96 Nasal Cannula 3.0 32 06/02/18 08:02 Nasal Cannula 3.0 32 06/02/18 08:00 Nasal Cannula 2.0 06/02/18 08:00 82 06/02/18 07:59 68 20 96 Nasal Cannula 3.0 32 06/02/18 04:00 85 06/02/18 04:00 97.0 70 19 104/78 (87) 98 97.0 06/02/18 01:24 58 20 97 Nasal Cannula 3.0 32 06/02/18 01:15 60 22 98 Nasal Cannula 3.0 32 06/02/18 00:00 97.0 85 19 106/73 (84) 98 97.0 06/02/18 00:00 85 06/01/18 21:00 Nasal Cannula 2.0 06/01/18 20:21 83 136/67 06/01/18 20:00 82 06/01/18 20:00 97.2 83 19 136/67 (90) 100 97.2 06/01/18 19:16 68 18 97 Nasal Cannula 3.0 32 06/01/18 19:15 80 18 94 Nasal Cannula 3.0 32 06/01/18 19:06 94 Nasal Cannula 3.0 32 06/01/18 19:06 Nasal Cannula 3.0 32 06/01/18 19:05 78 20 94 Nasal Cannula 3.0 32 General Appearance: lethargic EENT: PERRL/EOMI, scleral icterus Neck: JVD - very severe Rhythm: Afib, VT Cardiovascular: bradycardia Respiratory/Chest: crackles/rales Abdomen: hepatomegaly, other - ascited severe anasarca Intake and Output 06/01/18 06/02/18 19:00 07:00 Intake Total 480 ml 200 ml Balance 480 ml 200 ml Intake Oral 480 ml 200 ml Megan Arthur MD Jun 02, 2018 16:07
[2018-06-02] MEDS: Heparin Sod 1000 units/ml 10ml IV SCH (17:57)
[2018-06-02] MEDS: ENTRESTO ORAL SCH (18:01)
[2018-06-02 20:00] VITALS: BP 95/65
[2018-06-02 20:21] LABS: EOSINOPHILS % (AUTO) 5.4 % (0.0-3.0); HEMATOCRIT 32.8 % (37.0-47.0); MEAN CORPUSCULAR VOLUME 98 FL (80-99); MONOCYTES % (AUTO) 9.8 % (1.0-10.0); NEUTROPHILS % (AUTO) 72.8 % (45.0-75.0); PLATELET COUNT 103 K/UL (150-450); RED BLOOD COUNT 3.37 M/UL (4.20-5.40); RED CELL DISTRIBUTION WIDTH 19.4 % (11.6-14.8); WHITE BLOOD COUNT 7.5 K/UL (4.8-10.8)
[2018-06-02 20:43] LABS: ALANINE AMINOTRANSFERASE 17 U/L (12-78); ALBUMIN 2.5 G/DL (3.4-5.0); ALBUMIN/GLOBULIN RATIO 0.6 (1.0-2.7); ALKALINE PHOSPHATASE 215 U/L (46-116); ANION GAP 11 mmol/L (5-15); ASPARTATE AMINO TRANSFERASE 20 U/L (15-37); BILIRUBIN,TOTAL 0.9 MG/DL (0.2-1.0); BLOOD UREA NITROGEN 26 mg/dL (7-18); CALCIUM 8.8 MG/DL (8.5-10.1); CARBON DIOXIDE 24 MMOL/L (21-32); CHLORIDE 99 MMOL/L (98-107); CREATININE 4.8 MG/DL (0.55-1.30); POTASSIUM 4.5 MMOL/L (3.5-5.1); SODIUM 134 MMOL/L (136-145)
[2018-06-02] MEDS: Iron Sucrose 100 MG in NS 55 ML IV SCH (20:45)
[2018-06-02] MEDS: Epogen (for ESRD on dialysis) SUBQ SCH (20:46)
[2018-06-03] VITALS: BP 99/49
[2018-06-03] MEDS: Albuterol/Ipratropium 3ml neb HHN SCH ×4 (01:16→19:35)
[2018-06-03 04:00] VITALS: BP 126/63
[2018-06-03 08:00] VITALS: BP 118/63
[2018-06-03] MEDS ORDERED: Heparin 1000 units/ml 1ml Vial INJ PRN (08:00)
[2018-06-03] MEDS ORDERED: Heparin Sod 1000 units/ml 10ml IV PRN (08:00)
[2018-06-03] MEDS: Aspirin Baby 81mg ORAL SCH (08:10)
[2018-06-03] MEDS: Docusate 100mg cap ORAL SCH ×2 (08:10→22:01)
[2018-06-03] MEDS: ENTRESTO ORAL SCH ×2 (08:11→18:00)
[2018-06-03] MEDS: Heparin 5000 units/ml inj SUBQ SCH ×2 (08:26→22:03)
--- NOTE | 2018-06-03 11:13 | Nephrology Progress Note ---
Assessment/Plan Plan 2 D Echo LVEF 15% !!! Previously ~20% about 3 months ago. Cardiology to advise. Note hypotension - improving. Anasarca - frequent HD as tolerated ESRD + Intractable CHF ----> HD frequently, fluid restriction. For HD today Finally starting to improve with daily HD + Entresto. Subjective Subjective For the first time less SOB! Started Entresto yesterday. Objective Objective Last 24 Hour Vital Signs Date Time Temp Pulse Resp B/P (MAP) Pulse Ox O2 Delivery O2 Flow Rate FiO2 06/03/18 09:00 Nasal Cannula 3.0 06/03/18 08:10 86 118/63 06/03/18 08:00 96.9 86 24 118/63 (81) 99 96.9 06/03/18 08:00 88 06/03/18 07:18 58 20 99 Nasal Cannula 3.0 32 06/03/18 07:07 97 Nasal Cannula 3.0 32 06/03/18 07:07 Nasal Cannula 3.0 32 06/03/18 07:05 78 22 97 Nasal Cannula 3.0 32 06/03/18 04:00 97.2 90 20 126/63 (84) 100 97.2 06/03/18 03:38 83 06/03/18 01:18 Nasal Cannula 3.0 32 06/03/18 01:17 Nasal Cannula 3.0 32 06/03/18 00:00 98.4 84 22 99/49 (66) 100 98.4 06/02/18 23:34 84 06/02/18 21:00 Nasal Cannula 2.0 06/02/18 20:45 88 95/65 06/02/18 20:12 79 20 98 Nasal Cannula 3.0 32 06/02/18 20:04 79 18 Nasal Cannula 3.0 32 06/02/18 20:03 79 22 98 Nasal Cannula 3.0 32 06/02/18 20:03 Nasal Cannula 3.0 32 06/02/18 20:03 97 Nasal Cannula 3.0 32 06/02/18 20:00 97.3 99 22 95/65 (75) 93 97.3 06/02/18 16:00 97.7 71 19 107/49 (68) 95 97.7 06/02/18 16:00 85 06/02/18 13:03 54 20 98 Nasal Cannula 3.0 32 06/02/18 12:56 53 20 95 Nasal Cannula 3.0 32 06/02/18 12:00 83 06/02/18 12:00 98.9 80 17 141/79 (99) 96 98.9 Intake and Output 06/02/18 06/03/18 19:00 07:00 Intake Total 1000 ml Balance 1000 ml Intake Oral 450 ml Other 550 ml # Voids 1 Laboratory Tests 06/02/18 20:10: White Blood Count 7.5, Red Blood Count 3.37L, Hemoglobin 10.0L, Hematocrit 32.8L , Mean Corpuscular Volume 98, Mean Corpuscular Hemoglobin 29.6, Mean Corpuscular Hemoglobin Concent 30.4L, Red Cell Distribution Width 19.4H, Platelet Count 103L, Mean Platelet Volume 8.0, Neutrophils (%) (Auto) 72.8, Lymphocytes (%) (Auto) 10.0L, Monocytes (%) (Auto) 9.8, Eosinophils (%) (Auto) 5.4H, Basophils (%) (Auto) 2.0, Sodium Level 134L, Potassium Level 4.5, Chloride Level 99, Carbon Dioxide Level 24, Anion Gap 11, Blood Urea Nitrogen 26H, Creatinine 4.8H, Estimat Glomerular Filtration Rate , Glucose Level 191H, Calcium Level 8.8, Total Bilirubin 0.9, Aspartate Amino Transf (AST/SGOT) 20, Alanine Aminotransferase (ALT/SGPT) 17, Alkaline Phosphatase 215H, Total Protein 7.0, Albumin 2.5L, Globulin 4.5, Albumin/Globulin Ratio 0.6L Height (Feet): 5 Height (Inches): 5.00 Weight (Pounds): 207 Objective CV RR 2/6 SM Lungs B wheezes. Abs SNT. BS + E ++ edema. L arm edema>>Rt. Cristy Clemente MD Jun 03, 2018 11:13
[2018-06-03 12:00] VITALS: BP 100/46
--- NOTE | 2018-06-03 14:25 | Cardiology Progress Note ---
Assessment/Plan Status: stable, unchanged Status Narrative Mrs. Quintanilla appears in CHF, w/ edema/ansarca. She is in AF (permanent) Assessment/Plan Continue fluid removal w/ HD ? change to permanent HD access from tunnelled L sc catheter to dec risk for infection ( ICD on L) No anticoagulation for AF, due to previous bleed (abd wall hematoma) Subjective ROS Limited/Unobtainable: No Subjective Cardiology for Dr. Arthur Pt c/o dyspnea. Events noted Objective Last 24 Hour Vital Signs Date Time Temp Pulse Resp B/P (MAP) Pulse Ox O2 Delivery O2 Flow Rate FiO2 06/03/18 13:31 78 20 100 Nasal Cannula 3.0 32 06/03/18 13:21 76 22 99 Nasal Cannula 3.0 32 06/03/18 12:00 76 06/03/18 12:00 96.8 83 22 100/46 (64) 99 96.8 06/03/18 09:00 Nasal Cannula 3.0 06/03/18 08:10 86 118/63 06/03/18 08:00 96.9 86 24 118/63 (81) 99 96.9 06/03/18 08:00 88 06/03/18 07:18 58 20 99 Nasal Cannula 3.0 32 06/03/18 07:07 97 Nasal Cannula 3.0 32 06/03/18 07:07 Nasal Cannula 3.0 32 06/03/18 07:05 78 22 97 Nasal Cannula 3.0 32 06/03/18 04:00 97.2 90 20 126/63 (84) 100 97.2 06/03/18 03:38 83 06/03/18 01:18 Nasal Cannula 3.0 32 06/03/18 01:17 Nasal Cannula 3.0 32 06/03/18 00:00 98.4 84 22 99/49 (66) 100 98.4 06/02/18 23:34 84 06/02/18 21:00 Nasal Cannula 2.0 06/02/18 20:45 88 95/65 06/02/18 20:12 79 20 98 Nasal Cannula 3.0 32 06/02/18 20:04 79 18 Nasal Cannula 3.0 32 06/02/18 20:03 79 22 98 Nasal Cannula 3.0 32 06/02/18 20:03 Nasal Cannula 3.0 32 06/02/18 20:03 97 Nasal Cannula 3.0 32 06/02/18 20:00 97.3 99 22 95/65 (75) 93 97.3 06/02/18 16:00 97.7 71 19 107/49 (68) 95 97.7 06/02/18 16:00 85 General Appearance: other - appears chronically-ill. no acute respir distress EENT: PERRL/EOMI Neck: other - tunnelled L IJ HD catheter Rhythm: NSR Cardiovascular: normal rate, systolic murmur, irregularly irregular Respiratory/Chest: other - dec bs L base Abdomen: non tender, soft, other - mild distension Extremities: moderate edema Intake and Output 06/02/18 06/03/18 19:00 07:00 Intake Total 1000 ml Balance 1000 ml Intake Oral 450 ml Other 550 ml # Voids 1 Laboratory Tests Test 06/02/18 20:10 White Blood Count 7.5 K/UL (4.8-10.8) Red Blood Count 3.37 M/UL (4.20-5.40) L Hemoglobin 10.0 G/DL (12.0-16.0) L Hematocrit 32.8 % (37.0-47.0) L Mean Corpuscular Volume 98 FL (80-99) Mean Corpuscular Hemoglobin 29.6 PG (27.0-31.0) Mean Corpuscular Hemoglobin Concent 30.4 G/DL (32.0-36.0) L Red Cell Distribution Width 19.4 % (11.6-14.8) H Platelet Count 103 K/UL (150-450) L Mean Platelet Volume 8.0 FL (6.5-10.1) Neutrophils (%) (Auto) 72.8 % (45.0-75.0) Lymphocytes (%) (Auto) 10.0 % (20.0-45.0) L Monocytes (%) (Auto) 9.8 % (1.0-10.0) Eosinophils (%) (Auto) 5.4 % (0.0-3.0) H Basophils (%) (Auto) 2.0 % (0.0-2.0) Sodium Level 134 MMOL/L (136-145) L Potassium Level 4.5 MMOL/L (3.5-5.1) Chloride Level 99 MMOL/L (98-107) Carbon Dioxide Level 24 MMOL/L (21-32) Anion Gap 11 mmol/L (5-15) Blood Urea Nitrogen 26 mg/dL (7-18) H Creatinine 4.8 MG/DL (0.55-1.30) H Estimat Glomerular Filtration Rate mL/min (>60) Glucose Level 191 MG/DL (74-106) H Calcium Level 8.8 MG/DL (8.5-10.1) Total Bilirubin 0.9 MG/DL (0.2-1.0) Aspartate Amino Transf (AST/SGOT) 20 U/L (15-37) Alanine Aminotransferase (ALT/SGPT) 17 U/L (12-78) Alkaline Phosphatase 215 U/L (46-116) H Total Protein 7.0 G/DL (6.4-8.2) Albumin 2.5 G/DL (3.4-5.0) L Globulin 4.5 g/dL Albumin/Globulin Ratio 0.6 (1.0-2.7) L Ruth Ojeda MD Jun 03, 2018 14:25
[2018-06-03 16:00] VITALS: BP 94/54
--- NOTE | 2018-06-03 18:25 | Pulmonology Progress Note ---
Assessment/Plan Assessment/Plan Assessment/Plan Pulmonary Progress Note IMPRESSION: 1. Evidence of pulmonary edema. with poor EF 2. COPD with acute exacerbation. 3. Protein-calorie malnutrition, severe. 4. Troponin leak, possible non-STEMI. 5. Chronic renal failure. 6. Hyperglycemia. 7. NSVT PLAN IV steroids DC respiratory care as is keep negative and monitor monitor clinically cards input reviewed; monitor for arrythmia orders and nursing notes reviewed monitor for cardiac asthma no distress at present continue same impression, plan, and exam edited and reviewed in detail care discussed with RN Subjective ROS Limited/Unobtainable: Yes Allergies: Coded Allergies: MIDAZOLAM (Verified Allergy, Unknown, 05/25/18) Subjective had episode of VT findings reviewed poor EF noted fluid issues and shifts reviewed Objective Last 24 Hour Vital Signs Date Time Temp Pulse Resp B/P (MAP) Pulse Ox O2 Delivery O2 Flow Rate FiO2 06/02/18 08:02 96 Nasal Cannula 3.0 32 06/02/18 08:02 Nasal Cannula 3.0 32 06/02/18 07:59 68 20 96 Nasal Cannula 3.0 32 06/02/18 04:00 85 06/02/18 04:00 97.0 70 19 104/78 (87) 98 97.0 06/02/18 01:24 58 20 97 Nasal Cannula 3.0 32 06/02/18 01:15 60 22 98 Nasal Cannula 3.0 32 06/02/18 00:00 97.0 85 19 106/73 (84) 98 97.0 06/02/18 00:00 85 06/01/18 21:00 Nasal Cannula 2.0 06/01/18 20:21 83 136/67 06/01/18 20:00 82 06/01/18 20:00 97.2 83 19 136/67 (90) 100 97.2 06/01/18 19:16 68 18 97 Nasal Cannula 3.0 32 06/01/18 19:15 80 18 94 Nasal Cannula 3.0 32 06/01/18 19:06 94 Nasal Cannula 3.0 32 06/01/18 19:06 Nasal Cannula 3.0 32 06/01/18 19:05 78 20 94 Nasal Cannula 3.0 32 06/01/18 16:00 85 06/01/18 16:00 96.8 97 16 108/82 (91) 97 96.8 06/01/18 13:47 55 20 99 Nasal Cannula 2.0 28 06/01/18 13:39 51 20 99 Nasal Cannula 2.0 28 06/01/18 12:00 76 06/01/18 12:00 96.8 76 16 136/74 (94) 96 96.8 06/01/18 09:00 Nasal Cannula 3.0 06/01/18 08:58 96 119/70 Intake and Output 06/01/18 06/02/18 19:00 07:00 Intake Total 480 ml 200 ml Balance 480 ml 200 ml Intake Oral 480 ml 200 ml Objective GENERAL: A well-developed female, advanced age. NAD NAD HEENT: Negative. NECK: Supple. Without jugular venous distention. LUNGS: some crackles noted at the bases. no wheeze CARDIAC: Normal S1, S2. Regular rate and rhythm without murmurs, rubs, or gallops. ABDOMEN: Soft, nontender, and nondistended. no HSM EXTREMITIES: some edema. No cyanosis or clubbing. NEUROLOGIC: Grossly nonfocal, weak, and confused. Current Medications Medications (Trade) Dose Ordered Sig/Toby Route PRN Reason Start Time Stop Time Status Last Admin Dose Admin Acetaminophen (Tylenol) 650 mg Q4H PRN ORAL Mild Pain (Pain Scale 1-3) 05/26/18 01:15 06/25/18 01:14 Albuterol/ Ipratropium (Albuterol/ Ipratropium) 3 ml Q6H HHN 05/31/18 20:15 06/25/18 20:14 06/02/18 07:59 Aspirin (ASA) 81 mg DAILY ORAL 05/26/18 09:00 06/25/18 08:59 06/01/18 08:58 Carvedilol (Coreg) 3.125 mg EVERY 12 HOURS ORAL 05/27/18 21:00 06/26/18 20:59 06/01/18 20:21 Dextrose (Dextrose 50%) 25 ml STAT PRN IV Hypoglycemia 05/26/18 01:15 06/25/18 01:14 Dextrose (Dextrose 50%) 50 ml STAT PRN IV Hypoglycemia 05/26/18 01:15 06/25/18 01:14 Docusate Sodium (Colace) 100 mg EVERY 12 HOURS ORAL 05/26/18 09:00 06/25/18 08:59 06/01/18 20:21 Epoetin Rodo (Procrit (for ESRD on dialysis)) 7,000 units MON-WED-TUE SUBQ 05/26/18 21:00 06/25/18 20:59 05/31/18 22:59 Guaifenesin (Robitussin) 200 mg BID PRN ORAL For Cough 05/27/18 17:00 06/26/18 16:59 05/29/18 16:41 Heparin Sodium (Porcine) (Heparin 5000 units/ml) 5,000 units EVERY 12 HOURS SUBQ 05/26/18 09:00 06/25/18 08:59 06/01/18 20:23 Heparin Sodium (Porcine) (Heparin Sod 1000 units/ml 10ml) 2,000 unit ONCE IV 05/31/18 18:45 06/30/18 18:44 05/31/18 18:53 Heparin Sodium (Porcine) (Heparin) 1,000 unit POSTHD INJ 05/27/18 01:15 06/26/18 01:14 05/29/18 08:44 Iron Sucrose 100 mg/Sodium Chloride 60 ml @ 240 mls/hr BEDTIME IV 05/30/18 21:00 06/03/18 21:14 06/01/18 20:21 Magnesium Hydroxide (Mom) 30 ml HSPRN PRN ORAL Constipation 05/26/18 01:15 06/25/18 01:14 06/01/18 20:21 Ondansetron HCl (Zofran) 4 mg Q6H PRN IVP Nausea & Vomiting 05/26/18 01:15 06/25/18 01:14 Pantoprazole (Protonix) 40 mg DAILY ORAL 05/26/18 09:00 06/25/18 08:59 06/01/18 08:58 Subjective ROS Limited/Unobtainable: No Allergies: Coded Allergies: MIDAZOLAM (Verified Allergy, Unknown, 05/25/18) Objective Last 24 Hour Vital Signs Date Time Temp Pulse Resp B/P (MAP) Pulse Ox O2 Delivery O2 Flow Rate FiO2 06/03/18 16:00 62 06/03/18 16:00 96.9 71 22 94/54 (67) 96 96.9 06/03/18 13:31 78 20 100 Nasal Cannula 3.0 32 06/03/18 13:21 76 22 99 Nasal Cannula 3.0 32 06/03/18 12:00 76 9/8/18 12:00 96.8 83 22 100/46 (64) 99 96.8 06/03/18 09:00 Nasal Cannula 3.0 06/03/18 08:10 86 118/63 06/03/18 08:00 96.9 86 24 118/63 (81) 99 96.9 06/03/18 08:00 88 06/03/18 07:18 58 20 99 Nasal Cannula 3.0 32 06/03/18 07:07 97 Nasal Cannula 3.0 32 06/03/18 07:07 Nasal Cannula 3.0 32 06/03/18 07:05 78 22 97 Nasal Cannula 3.0 32 06/03/18 04:00 97.2 90 20 126/63 (84) 100 97.2 06/03/18 03:38 83 06/03/18 01:18 Nasal Cannula 3.0 32 06/03/18 01:17 Nasal Cannula 3.0 32 06/03/18 00:00 98.4 84 22 99/49 (66) 100 98.4 06/02/18 23:34 84 06/02/18 21:00 Nasal Cannula 2.0 06/02/18 20:45 88 95/65 06/02/18 20:12 79 20 98 Nasal Cannula 3.0 32 06/02/18 20:04 79 18 Nasal Cannula 3.0 32 06/02/18 20:03 79 22 98 Nasal Cannula 3.0 32 06/02/18 20:03 Nasal Cannula 3.0 32 06/02/18 20:03 97 Nasal Cannula 3.0 32 06/02/18 20:00 97.3 99 22 95/65 (75) 93 97.3 Intake and Output 06/02/18 06/03/18 19:00 07:00 Intake Total 1000 ml Balance 1000 ml Intake Oral 450 ml Other 550 ml # Voids 1 Laboratory Tests 06/02/18 20:10: White Blood Count 7.5, Red Blood Count 3.37L, Hemoglobin 10.0L, Hematocrit 32.8L , Mean Corpuscular Volume 98, Mean Corpuscular Hemoglobin 29.6, Mean Corpuscular Hemoglobin Concent 30.4L, Red Cell Distribution Width 19.4H, Platelet Count 103L, Mean Platelet Volume 8.0, Neutrophils (%) (Auto) 72.8, Lymphocytes (%) (Auto) 10.0L, Monocytes (%) (Auto) 9.8, Eosinophils (%) (Auto) 5.4H, Basophils (%) (Auto) 2.0, Sodium Level 134L, Potassium Level 4.5, Chloride Level 99, Carbon Dioxide Level 24, Anion Gap 11, Blood Urea Nitrogen 26H, Creatinine 4.8H, Estimat Glomerular Filtration Rate , Glucose Level 191H, Calcium Level 8.8, Total Bilirubin 0.9, Aspartate Amino Transf (AST/SGOT) 20, Alanine Aminotransferase (ALT/SGPT) 17, Alkaline Phosphatase 215H, Total Protein 7.0, Albumin 2.5L, Globulin 4.5, Albumin/Globulin Ratio 0.6L Current Medications Medications (Trade) Dose Ordered Sig/Toby Route PRN Reason Start Time Stop Time Status Last Admin Dose Admin Acetaminophen (Tylenol) 650 mg Q4H PRN ORAL Mild Pain (Pain Scale 1-3) 05/26/18 01:15 06/25/18 01:14 06/03/18 00:24 Albuterol/ Ipratropium (Albuterol/ Ipratropium) 3 ml Q6H HHN 05/31/18 20:15 06/25/18 20:14 06/03/18 13:21 Aspirin (ASA) 81 mg DAILY ORAL 05/26/18 09:00 06/25/18 08:59 06/03/18 08:10 Carvedilol (Coreg) 3.125 mg EVERY 12 HOURS ORAL 05/27/18 21:00 06/26/18 20:59 06/03/18 08:10 Chlorhexidine Gluconate (Tamara-Hex 2%) 1 applic DAILY@1999 TOPIC 06/03/18 20:00 07/03/18 19:59 Dextrose (Dextrose 50%) 25 ml STAT PRN IV Hypoglycemia 05/26/18 01:15 06/25/18 01:14 Dextrose (Dextrose 50%) 50 ml STAT PRN IV Hypoglycemia 05/26/18 01:15 06/25/18 01:14 Docusate Sodium (Colace) 100 mg EVERY 12 HOURS ORAL 05/26/18 09:00 06/25/18 08:59 06/03/18 08:10 Epoetin Rodo (Procrit (for ESRD on dialysis)) 7,000 units TUE-TUE-TUE SUBQ 05/26/18 21:00 06/25/18 20:59 06/02/18 20:46 Guaifenesin (Robitussin) 200 mg BID PRN ORAL For Cough 05/27/18 17:00 06/26/18 16:59 05/29/18 16:41 Heparin Sodium (Porcine) (Heparin 5000 units/ml) 5,000 units EVERY 12 HOURS SUBQ 05/26/18 09:00 06/25/18 08:59 06/02/18 09:00 Heparin Sodium (Porcine) (Heparin Sod 1000 units/ml 10ml) 500 unit ONCE PRN IV dialysis use 06/03/18 08:00 06/03/18 23:59 Heparin Sodium (Porcine) (Heparin) 1,000 unit POSTHD PRN INJ DIALYSIS 06/03/18 08:00 06/03/18 23:59 Iron Sucrose 100 mg/Sodium Chloride 60 ml @ 240 mls/hr BEDTIME IV 05/30/18 21:00 06/03/18 21:14 06/02/18 20:45 Magnesium Hydroxide (Mom) 30 ml HSPRN PRN ORAL Constipation 05/26/18 01:15 06/25/18 01:14 06/01/18 20:21 Ondansetron HCl (Zofran) 4 mg Q6H PRN IVP Nausea & Vomiting 05/26/18 01:15 06/25/18 01:14 Pantoprazole (Protonix) 40 mg DAILY ORAL 05/26/18 09:00 06/25/18 08:59 06/03/18 08:10 Patient Own Medication (Patient's Own Med) 1 ea BID ORAL 06/02/18 18:00 07/02/18 17:59 06/03/18 08:11 Sodium Chloride 1,000 ml @ 500 mls/hr Q2H PRN IVLG sbp<90 during hd 06/03/18 08:50 07/03/18 08:49 Paramjit Esparza MD Jun 03, 2018 18:25
[2018-06-03] MEDS ORDERED: NS 275ml ONE (18:46)
[2018-06-03] MEDS ORDERED: Tubing IV Secondary IV ONE (18:46)
[2018-06-03 20:00] VITALS: BP 118/62
[2018-06-03] MEDS: Dyna-Hex 2% Top Sol 2oz TOPIC SCH (20:00)
[2018-06-03] MEDS: Iron Sucrose 100 MG in NS 55 ML IV SCH (22:01)
[2018-06-04] VITALS (7 sets, daily range): BP systolic 92–131; BP diastolic 46–81
[2018-06-04] MEDS: Albuterol/Ipratropium 3ml neb HHN SCH ×3 (01:52→14:45)
[2018-06-04] MEDS: Aspirin Baby 81mg ORAL SCH (08:26)
[2018-06-04] MEDS: Docusate 100mg cap ORAL SCH ×2 (08:26→20:52)
[2018-06-04] MEDS: ENTRESTO ORAL SCH ×2 (08:34→17:52)
[2018-06-04] MEDS: Heparin 5000 units/ml inj SUBQ SCH ×2 (08:34→20:41)
[2018-06-04] MEDS ORDERED: NS 275ml ONE (09:18)
[2018-06-04] MEDS ORDERED: Tubing IV Secondary IV ONE (09:18)
--- NOTE | 2018-06-04 10:16 | Nephrology Progress Note ---
Assessment/Plan Plan 2 D Echo LVEF 15% !!! Previously ~20% about 3 months ago. ESRD + Intractable CHF ----> HD frequently, fluid restriction. Finally starting to improve with daily HD + Entresto. HD tomorrow. SNF Tuesday or Tuesday if stable. Subjective Subjective Less SOB! Objective Objective Last 24 Hour Vital Signs Date Time Temp Pulse Resp B/P (MAP) Pulse Ox O2 Delivery O2 Flow Rate FiO2 06/04/18 09:00 Nasal Cannula 3.0 06/04/18 08:34 72 95/63 06/04/18 08:13 78 20 99 Nasal Cannula 3.0 32 06/04/18 08:12 76 18 96 Nasal Cannula 3.0 32 06/04/18 08:12 Nasal Cannula 3.0 32 06/04/18 08:12 96 Nasal Cannula 3.0 32 06/04/18 08:00 96.9 72 20 95/63 (74) 95 96.9 06/04/18 08:00 73 06/04/18 04:00 96.6 93 16 98/48 (65) 98 96.6 06/04/18 03:36 79 06/04/18 01:53 81 20 100 Nasal Cannula 3.0 32 06/04/18 01:52 79 18 98 Nasal Cannula 3.0 32 06/04/18 00:00 96.3 48 18 122/55 (77) 99 96.3 06/03/18 23:49 68 06/03/18 22:02 62 118/62 06/03/18 21:16 Nasal Cannula 2.0 06/03/18 21:00 Nasal Cannula 3.0 06/03/18 20:36 Nasal Cannula 2.0 06/03/18 20:03 79 06/03/18 20:00 96.1 62 16 118/62 (80) 100 96.1 06/03/18 19:45 Nasal Cannula 3.0 32 06/03/18 19:44 Nasal Cannula 3.0 32 06/03/18 19:43 Nasal Cannula 3.0 32 06/03/18 19:43 95 Nasal Cannula 3.0 32 06/03/18 16:00 62 06/03/18 16:00 96.9 71 22 94/54 (67) 96 96.9 06/03/18 13:31 78 20 100 Nasal Cannula 3.0 32 06/03/18 13:21 76 22 99 Nasal Cannula 3.0 32 06/03/18 12:00 76 06/03/18 12:00 96.8 83 22 100/46 (64) 99 96.8 Intake and Output 06/03/18 06/04/18 19:00 07:00 Intake Total 240 ml 240 ml Output Total 1500 ml Balance 240 ml -1260 ml Intake Oral 240 ml 240 ml Output Hemodialysis UF 1500 ml # Bowel Movements 1 Height (Feet): 5 Height (Inches): 5.00 Weight (Pounds): 205 Objective CV RR 2/6 SM Lungs B wheezes. Abs SNT. BS + E ++ edema. L arm edema>>Rt. Cristy Clemente MD Jun 04, 2018 10:16
--- NOTE | 2018-06-04 14:31 | Cardiology Progress Note ---
Assessment/Plan Problem List: (1) COPD exacerbation (2) Chronic a-fib (3) ESRD on dialysis (4) Chronic systolic heart failure Status: stable, unchanged Status Narrative Mrs. Quintanilla is stable. She remains w/ volume overload, improving w/ increased dialysis Ventricular rates controlled in AF Assessment/Plan Continue fluid removal w/ HD ? change to permanent HD access from tunnelled L sc catheter to dec risk for infection ( ICD on L) No anticoagulation for AF, due to previous bleed (abd wall hematoma) Subjective Subjective Cardiology for Dr. Arthur Pt sedated. No new c/o Objective Last 24 Hour Vital Signs Date Time Temp Pulse Resp B/P (MAP) Pulse Ox O2 Delivery O2 Flow Rate FiO2 06/04/18 12:00 96.5 71 20 92/46 (61) 100 96.5 06/04/18 09:00 Nasal Cannula 3.0 06/04/18 08:34 72 95/63 06/04/18 08:13 78 20 99 Nasal Cannula 3.0 32 06/04/18 08:12 76 18 96 Nasal Cannula 3.0 32 06/04/18 08:12 Nasal Cannula 3.0 32 06/04/18 08:12 96 Nasal Cannula 3.0 32 06/04/18 08:00 96.9 72 20 95/63 (74) 95 96.9 06/04/18 08:00 73 06/04/18 04:00 96.6 93 16 98/48 (65) 98 96.6 06/04/18 03:36 79 06/04/18 01:53 81 20 100 Nasal Cannula 3.0 32 06/04/18 01:52 79 18 98 Nasal Cannula 3.0 32 06/04/18 00:00 96.3 48 18 122/55 (77) 99 96.3 06/03/18 23:49 68 06/03/18 22:02 62 118/62 06/03/18 21:16 Nasal Cannula 2.0 06/03/18 21:00 Nasal Cannula 3.0 06/03/18 20:36 Nasal Cannula 2.0 06/03/18 20:03 79 06/03/18 20:00 96.1 62 16 118/62 (80) 100 96.1 06/03/18 19:45 Nasal Cannula 3.0 32 06/03/18 19:44 Nasal Cannula 3.0 32 06/03/18 19:43 Nasal Cannula 3.0 32 06/03/18 19:43 95 Nasal Cannula 3.0 32 06/03/18 16:00 62 06/03/18 16:00 96.9 71 22 94/54 (67) 96 96.9 General Appearance: WD/WN, no apparent distress EENT: PERRL/EOMI Neck: no JVD Rhythm: Afib Cardiovascular: normal rate, systolic murmur, other - irreg irreg s1s2 with a i /vi ABHISHEK Respiratory/Chest: other - bilat expir wheezes Abdomen: normal bowel sounds, non tender, soft Extremities: trace edema Intake and Output 06/03/18 06/04/18 19:00 07:00 Intake Total 240 ml 240 ml Output Total 1500 ml Balance 240 ml -1260 ml Intake Oral 240 ml 240 ml Output Hemodialysis UF 1500 ml # Bowel Movements 1 Ruth Ojeda MD Jun 04, 2018 14:31
--- NOTE | 2018-06-04 17:49 | Pulmonology Progress Note ---
Assessment/Plan Assessment/Plan Assessment/Plan Pulmonary Progress Note IMPRESSION: 1. Evidence of pulmonary edema. with poor EF 2. COPD with acute exacerbation. 3. Protein-calorie malnutrition, severe. 4. Troponin leak, possible non-STEMI. 5. Chronic renal failure. 6. Hyperglycemia. 7. NSVT PLAN IV steroids DC respiratory care as is keep negative and monitor monitor clinically cards input reviewed; monitor for arrythmia orders and nursing notes reviewed monitor for cardiac asthma no distress at present continue same impression, plan, and exam edited and reviewed in detail care discussed with RN Subjective ROS Limited/Unobtainable: Yes Allergies: Coded Allergies: MIDAZOLAM (Verified Allergy, Unknown, 05/25/18) Subjective had episode of VT findings reviewed poor EF noted fluid issues and shifts reviewed Objective Last 24 Hour Vital Signs Date Time Temp Pulse Resp B/P (MAP) Pulse Ox O2 Delivery O2 Flow Rate FiO2 06/02/18 08:02 96 Nasal Cannula 3.0 32 06/02/18 08:02 Nasal Cannula 3.0 32 06/02/18 07:59 68 20 96 Nasal Cannula 3.0 32 06/02/18 04:00 85 06/02/18 04:00 97.0 70 19 104/78 (87) 98 97.0 06/02/18 01:24 58 20 97 Nasal Cannula 3.0 32 06/02/18 01:15 60 22 98 Nasal Cannula 3.0 32 06/02/18 00:00 97.0 85 19 106/73 (84) 98 97.0 06/02/18 00:00 85 06/01/18 21:00 Nasal Cannula 2.0 06/01/18 20:21 83 136/67 06/01/18 20:00 82 06/01/18 20:00 97.2 83 19 136/67 (90) 100 97.2 06/01/18 19:16 68 18 97 Nasal Cannula 3.0 32 06/01/18 19:15 80 18 94 Nasal Cannula 3.0 32 06/01/18 19:06 94 Nasal Cannula 3.0 32 06/01/18 19:06 Nasal Cannula 3.0 32 06/01/18 19:05 78 20 94 Nasal Cannula 3.0 32 06/01/18 16:00 85 06/01/18 16:00 96.8 97 16 108/82 (91) 97 96.8 06/01/18 13:47 55 20 99 Nasal Cannula 2.0 28 06/01/18 13:39 51 20 99 Nasal Cannula 2.0 28 06/01/18 12:00 76 06/01/18 12:00 96.8 76 16 136/74 (94) 96 96.8 06/01/18 09:00 Nasal Cannula 3.0 06/01/18 08:58 96 119/70 Intake and Output 06/01/18 06/02/18 19:00 07:00 Intake Total 480 ml 200 ml Balance 480 ml 200 ml Intake Oral 480 ml 200 ml Objective GENERAL: A well-developed female, advanced age. NAD NAD HEENT: Negative. NECK: Supple. Without jugular venous distention. LUNGS: some crackles noted at the bases. no wheeze CARDIAC: Normal S1, S2. Regular rate and rhythm without murmurs, rubs, or gallops. ABDOMEN: Soft, nontender, and nondistended. no HSM EXTREMITIES: some edema. No cyanosis or clubbing. NEUROLOGIC: Grossly nonfocal, weak, and confused. Current Medications Medications (Trade) Dose Ordered Sig/Toby Route PRN Reason Start Time Stop Time Status Last Admin Dose Admin Acetaminophen (Tylenol) 650 mg Q4H PRN ORAL Mild Pain (Pain Scale 1-3) 05/26/18 01:15 06/25/18 01:14 Albuterol/ Ipratropium (Albuterol/ Ipratropium) 3 ml Q6H HHN 05/31/18 20:15 06/25/18 20:14 06/02/18 07:59 Aspirin (ASA) 81 mg DAILY ORAL 05/26/18 09:00 06/25/18 08:59 06/01/18 08:58 Carvedilol (Coreg) 3.125 mg EVERY 12 HOURS ORAL 05/27/18 21:00 06/26/18 20:59 06/01/18 20:21 Dextrose (Dextrose 50%) 25 ml STAT PRN IV Hypoglycemia 05/26/18 01:15 06/25/18 01:14 Dextrose (Dextrose 50%) 50 ml STAT PRN IV Hypoglycemia 05/26/18 01:15 06/25/18 01:14 Docusate Sodium (Colace) 100 mg EVERY 12 HOURS ORAL 05/26/18 09:00 06/25/18 08:59 06/01/18 20:21 Epoetin Rodo (Procrit (for ESRD on dialysis)) 7,000 units MON-WED-TUE SUBQ 05/26/18 21:00 06/25/18 20:59 05/31/18 22:59 Guaifenesin (Robitussin) 200 mg BID PRN ORAL For Cough 05/27/18 17:00 06/26/18 16:59 05/29/18 16:41 Heparin Sodium (Porcine) (Heparin 5000 units/ml) 5,000 units EVERY 12 HOURS SUBQ 05/26/18 09:00 06/25/18 08:59 06/01/18 20:23 Heparin Sodium (Porcine) (Heparin Sod 1000 units/ml 10ml) 2,000 unit ONCE IV 05/31/18 18:45 06/30/18 18:44 05/31/18 18:53 Heparin Sodium (Porcine) (Heparin) 1,000 unit POSTHD INJ 05/27/18 01:15 06/26/18 01:14 05/29/18 08:44 Iron Sucrose 100 mg/Sodium Chloride 60 ml @ 240 mls/hr BEDTIME IV 05/30/18 21:00 06/03/18 21:14 06/01/18 20:21 Magnesium Hydroxide (Mom) 30 ml HSPRN PRN ORAL Constipation 05/26/18 01:15 06/25/18 01:14 06/01/18 20:21 Ondansetron HCl (Zofran) 4 mg Q6H PRN IVP Nausea & Vomiting 05/26/18 01:15 06/25/18 01:14 Pantoprazole (Protonix) 40 mg DAILY ORAL 05/26/18 09:00 06/25/18 08:59 06/01/18 08:58 Subjective ROS Limited/Unobtainable: No Allergies: Coded Allergies: MIDAZOLAM (Verified Allergy, Unknown, 05/25/18) Objective Last 24 Hour Vital Signs Date Time Temp Pulse Resp B/P (MAP) Pulse Ox O2 Delivery O2 Flow Rate FiO2 06/04/18 16:00 96.3 80 20 131/81 (98) 100 96.3 06/04/18 16:00 75 06/04/18 14:58 75 20 100 Nasal Cannula 3.0 32 06/04/18 14:46 75 20 100 Nasal Cannula 3.0 32 06/04/18 12:00 78 9/9/18 12:00 96.5 71 20 92/46 (61) 100 96.5 06/04/18 09:00 Nasal Cannula 3.0 06/04/18 08:34 72 95/63 06/04/18 08:13 78 20 99 Nasal Cannula 3.0 32 06/04/18 08:12 76 18 96 Nasal Cannula 3.0 32 06/04/18 08:12 Nasal Cannula 3.0 32 06/04/18 08:12 96 Nasal Cannula 3.0 32 06/04/18 08:00 96.9 72 20 95/63 (74) 95 96.9 06/04/18 08:00 73 06/04/18 04:00 96.6 93 16 98/48 (65) 98 96.6 06/04/18 03:36 79 06/04/18 01:53 81 20 100 Nasal Cannula 3.0 32 06/04/18 01:52 79 18 98 Nasal Cannula 3.0 32 06/04/18 00:00 96.3 48 18 122/55 (77) 99 96.3 06/03/18 23:49 68 06/03/18 22:02 62 118/62 06/03/18 21:16 Nasal Cannula 2.0 06/03/18 21:00 Nasal Cannula 3.0 06/03/18 20:36 Nasal Cannula 2.0 06/03/18 20:03 79 06/03/18 20:00 96.1 62 16 118/62 (80) 100 96.1 06/03/18 19:45 Nasal Cannula 3.0 32 06/03/18 19:44 Nasal Cannula 3.0 32 06/03/18 19:43 Nasal Cannula 3.0 32 06/03/18 19:43 95 Nasal Cannula 3.0 32 Intake and Output 06/03/18 06/04/18 19:00 07:00 Intake Total 240 ml 240 ml Output Total 1500 ml Balance 240 ml -1260 ml Intake Oral 240 ml 240 ml Output Hemodialysis UF 1500 ml # Bowel Movements 1 Current Medications Medications (Trade) Dose Ordered Sig/Toby Route PRN Reason Start Time Stop Time Status Last Admin Dose Admin Acetaminophen (Tylenol) 650 mg Q4H PRN ORAL Mild Pain (Pain Scale 1-3) 05/26/18 01:15 06/25/18 01:14 06/03/18 00:24 Albuterol/ Ipratropium (Albuterol/ Ipratropium) 3 ml Q6H HHN 05/31/18 20:15 06/25/18 20:14 06/04/18 14:45 Aspirin (ASA) 81 mg DAILY ORAL 05/26/18 09:00 06/25/18 08:59 06/04/18 08:26 Carvedilol (Coreg) 3.125 mg EVERY 12 HOURS ORAL 05/27/18 21:00 06/26/18 20:59 06/03/18 22:02 Chlorhexidine Gluconate (Tamara-Hex 2%) 1 applic DAILY@199906/03/18 20:00 07/03/18 19:59 06/03/18 20:00 Dextrose (Dextrose 50%) 25 ml STAT PRN IV Hypoglycemia 05/26/18 01:15 06/25/18 01:14 Dextrose (Dextrose 50%) 50 ml STAT PRN IV Hypoglycemia 05/26/18 01:15 06/25/18 01:14 Docusate Sodium (Colace) 100 mg EVERY 12 HOURS ORAL 05/26/18 09:00 06/25/18 08:59 06/04/18 08:26 Epoetin Rodo (Procrit (for ESRD on dialysis)) 7,000 units TUE-TUE-TUE SUBQ 05/26/18 21:00 06/25/18 20:59 06/02/18 20:46 Guaifenesin (Robitussin) 200 mg BID PRN ORAL For Cough 05/27/18 17:00 06/26/18 16:59 05/29/18 16:41 Heparin Sodium (Porcine) (Heparin 5000 units/ml) 5,000 units EVERY 12 HOURS SUBQ 05/26/18 09:00 06/25/18 08:59 06/03/18 22:03 Heparin Sodium (Porcine) (Heparin Sod 1000 units/ml 10ml) 500 unit ONCE PRN IV Dialysis Use 06/05/18 06:00 06/05/18 23:59 Heparin Sodium (Porcine) (Heparin) 1,000 unit POSTHD PRN INJ Dialysis Use 06/05/18 06:00 06/05/18 23:59 Magnesium Hydroxide (Mom) 30 ml HSPRN PRN ORAL Constipation 05/26/18 01:15 06/25/18 01:14 06/01/18 20:21 Ondansetron HCl (Zofran) 4 mg Q6H PRN IVP Nausea & Vomiting 05/26/18 01:15 06/25/18 01:14 Pantoprazole (Protonix) 40 mg DAILY ORAL 05/26/18 09:00 06/25/18 08:59 06/04/18 08:27 Patient Own Medication (Patient's Own Med) 1 ea BID ORAL 06/02/18 18:00 07/02/18 17:59 06/03/18 08:11 Sodium Chloride 1,000 ml @ 500 mls/hr Q2H PRN IVLG sbp<90 during hd 06/05/18 06:00 06/05/18 23:59 Sodium Chloride 1,000 ml @ 500 mls/hr Q2H PRN IVLG sbp<90 during hd 06/03/18 08:50 07/03/18 08:49 Paramjit Esparza MD Jun 04, 2018 17:49
[2018-06-04] MEDS ORDERED: Albuterol/Ipratropium 3ml neb HHN PRN (19:00)
[2018-06-04] MEDS: Dyna-Hex 2% Top Sol 2oz TOPIC SCH (20:51)
[2018-06-04] MEDS: Albuterol ud Inhalation HHN PRN (21:44)
[2018-06-04] MEDS ORDERED: Albuterol ud Inhalation HHN SCH (23:00)
[2018-06-05] VITALS: BP 95/51
[2018-06-05] MEDS: Albuterol ud Inhalation HHN PRN ×3 (01:10→13:54)
[2018-06-05 04:00] VITALS: BP 104/53
[2018-06-05] MEDS ORDERED: Heparin 1000 units/ml 1ml Vial INJ PRN (06:00)
[2018-06-05] MEDS ORDERED: Heparin Sod 1000 units/ml 10ml IV PRN (06:00)
[2018-06-05 08:00] VITALS: BP 92/62
[2018-06-05] MEDS: Heparin 5000 units/ml inj SUBQ SCH ×2 (08:31→20:24)
[2018-06-05] MEDS: Aspirin Baby 81mg ORAL SCH (09:00)
[2018-06-05] MEDS: Docusate 100mg cap ORAL SCH ×2 (09:00→20:58)
[2018-06-05] MEDS: ENTRESTO ORAL SCH ×2 (10:24→17:27)
[2018-06-05 12:00] VITALS: BP 110/64
[2018-06-05 14:20] LABS: BASOPHILS % (AUTO) 1.3 % (0.0-2.0); EOSINOPHILS % (AUTO) 4.9 % (0.0-3.0); HEMATOCRIT 33.9 % (37.0-47.0); HEMOGLOBIN 10.2 G/DL (12.0-16.0); LYMPHOCYTES % (AUTO) 13.1 % (20.0-45.0); MEAN CORPUSCULAR VOLUME 98 FL (80-99); MONOCYTES % (AUTO) 10.6 % (1.0-10.0); NEUTROPHILS % (AUTO) 70.1 % (45.0-75.0); PLATELET COUNT 104 K/UL (150-450); RED BLOOD COUNT 3.47 M/UL (4.20-5.40); RED CELL DISTRIBUTION WIDTH 19.8 % (11.6-14.8)
[2018-06-05 14:26] LABS: ANION GAP 8 mmol/L (5-15); BLOOD UREA NITROGEN 31 mg/dL (7-18); CALCIUM 8.4 MG/DL (8.5-10.1); CARBON DIOXIDE 24 MMOL/L (21-32); CHLORIDE 100 MMOL/L (98-107); CREATININE 5.4 MG/DL (0.55-1.30); POTASSIUM 4.3 MMOL/L (3.5-5.1); SODIUM 132 MMOL/L (136-145)
[2018-06-05 16:00] VITALS: BP 134/59
--- NOTE | 2018-06-05 17:52 | Cardiology Progress Note ---
Assessment/Plan Assessment/Plan very ill patient with advanced right and left heart failure, not a candidate for transplant or artificial heart. Prognosis is poor Subjective Subjective remains short of breath and coughing Objective Last 24 Hour Vital Signs Date Time Temp Pulse Resp B/P (MAP) Pulse Ox O2 Delivery O2 Flow Rate FiO2 06/05/18 17:15 Nasal Cannula 2.0 06/05/18 16:05 Nasal Cannula 2.0 06/05/18 16:00 69 06/05/18 16:00 97.8 74 20 134/59 (84) 98 97.8 06/05/18 14:03 63 20 100 Nasal Cannula 3.0 32 06/05/18 13:55 65 20 100 Nasal Cannula 3.0 32 06/05/18 12:00 70 06/05/18 12:00 97.0 78 24 110/64 (79) 98 97.0 06/05/18 10:01 61 18 99 Nasal Cannula 3.0 32 06/05/18 09:57 100 Nasal Cannula 3.0 32 06/05/18 09:57 Nasal Cannula 3.0 32 06/05/18 09:54 67 20 100 Nasal Cannula 3.0 32 06/05/18 09:00 Nasal Cannula 3.0 06/05/18 08:00 78 06/05/18 08:00 96.6 65 18 92/62 (72) 100 96.6 06/05/18 04:05 78 06/05/18 04:00 97.0 81 20 104/53 (70) 100 97.0 06/05/18 03:43 Nasal Cannula 3.0 32 06/05/18 03:43 Nasal Cannula 3.0 32 06/05/18 03:30 96 Nasal Cannula 2.0 28 06/05/18 03:30 72 24 95 Facial 30 06/05/18 01:33 70 21 98 Facial 30 06/05/18 01:10 72 20 98 Nasal Cannula 2.0 28 06/05/18 01:10 68 20 95 Nasal Cannula 2.0 28 06/05/18 00:00 97.0 86 21 95/51 (66) 100 97.0 06/04/18 23:34 80 06/04/18 22:59 81 20 99 Nasal Cannula 3.0 32 06/04/18 22:59 79 20 96 Nasal Cannula 3.0 32 06/04/18 21:46 68 20 100 Nasal Cannula 2.0 28 06/04/18 21:45 62 20 98 Nasal Cannula 2.0 28 06/04/18 21:00 Nasal Cannula 3.0 06/04/18 20:52 81 103/58 06/04/18 20:00 97.5 88 21 103/58 (73) 98 97.5 06/04/18 19:06 79 06/04/18 19:06 Nasal Cannula 3.0 32 06/04/18 19:06 95 Nasal Cannula 3.0 32 06/04/18 19:05 83 20 100 Nasal Cannula 3.0 32 06/04/18 19:05 80 20 97 Nasal Cannula 3.0 32 06/04/18 17:50 96.8 72 23 98/49 (65) 100 96.8 General Appearance: other - confused EENT: PERRL/EOMI Neck: JVD - very severe Rhythm: Afib, VT - non sustained v tach last on 06/04/18 14 beats in a raw Cardiovascular: bradycardia, systolic murmur Respiratory/Chest: decreased breath sounds, rhonchi - bilaterally Abdomen: distended - ascited severe generalised edema Extremities: severe edema - anasarka Neurologic: other Intake and Output 06/04/18 06/05/18 19:00 07:00 Intake Total 480 ml 120 ml Balance 480 ml 120 ml Intake Oral 480 ml 120 ml Laboratory Tests Test 06/05/18 13:50 White Blood Count 7.0 K/UL (4.8-10.8) Red Blood Count 3.47 M/UL (4.20-5.40) L Hemoglobin 10.2 G/DL (12.0-16.0) L Hematocrit 33.9 % (37.0-47.0) L Mean Corpuscular Volume 98 FL (80-99) Mean Corpuscular Hemoglobin 29.3 PG (27.0-31.0) Mean Corpuscular Hemoglobin Concent 29.9 G/DL (32.0-36.0) L Red Cell Distribution Width 19.8 % (11.6-14.8) H Platelet Count 104 K/UL (150-450) L Mean Platelet Volume 9.6 FL (6.5-10.1) Neutrophils (%) (Auto) 70.1 % (45.0-75.0) Lymphocytes (%) (Auto) 13.1 % (20.0-45.0) L Monocytes (%) (Auto) 10.6 % (1.0-10.0) H Eosinophils (%) (Auto) 4.9 % (0.0-3.0) H Basophils (%) (Auto) 1.3 % (0.0-2.0) Sodium Level 132 MMOL/L (136-145) L Potassium Level 4.3 MMOL/L (3.5-5.1) Chloride Level 100 MMOL/L (98-107) Carbon Dioxide Level 24 MMOL/L (21-32) Anion Gap 8 mmol/L (5-15) Blood Urea Nitrogen 31 mg/dL (7-18) H Creatinine 5.4 MG/DL (0.55-1.30) H Estimat Glomerular Filtration Rate mL/min (>60) Glucose Level 187 MG/DL (74-106) H Calcium Level 8.4 MG/DL (8.5-10.1) L Megan Arthur MD Jun 05, 2018 17:52
[2018-06-05 20:00] VITALS: BP 97/58
[2018-06-05] MEDS: Dyna-Hex 2% Top Sol 2oz TOPIC SCH (20:58)
[2018-06-05] MEDS: Epogen (for ESRD on dialysis) SUBQ SCH (20:59)
--- NOTE | 2018-06-05 21:07 | Nephrology Progress Note ---
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 2) Acute exacerbation of systolic CHF 3) Cardio-renal, now on HD Plan: Will Hd tomorrow with fluid removal Subjective Subjective She is still on O2, some wheezing still, feels better overall Objective Objective Last 24 Hour Vital Signs Date Time Temp Pulse Resp B/P (MAP) Pulse Ox O2 Delivery O2 Flow Rate FiO2 06/05/18 20:23 73 97/58 06/05/18 20:03 98 Nasal Cannula 2.0 28 06/05/18 20:03 Nasal Cannula 2.0 28 06/05/18 17:15 Nasal Cannula 2.0 06/05/18 16:05 Nasal Cannula 2.0 06/05/18 16:00 69 06/05/18 16:00 97.8 74 20 134/59 (84) 98 97.8 06/05/18 14:03 63 20 100 Nasal Cannula 3.0 32 06/05/18 13:55 65 20 100 Nasal Cannula 3.0 32 06/05/18 12:00 70 06/05/18 12:00 97.0 78 24 110/64 (79) 98 97.0 06/05/18 10:01 61 18 99 Nasal Cannula 3.0 32 06/05/18 09:57 100 Nasal Cannula 3.0 32 06/05/18 09:57 Nasal Cannula 3.0 32 06/05/18 09:54 67 20 100 Nasal Cannula 3.0 32 06/05/18 09:00 Nasal Cannula 3.0 06/05/18 08:00 78 06/05/18 08:00 96.6 65 18 92/62 (72) 100 96.6 06/05/18 04:05 78 06/05/18 04:00 97.0 81 20 104/53 (70) 100 97.0 06/05/18 03:43 Nasal Cannula 3.0 32 06/05/18 03:43 Nasal Cannula 3.0 32 06/05/18 03:30 96 Nasal Cannula 2.0 28 06/05/18 03:30 72 24 95 Facial 30 06/05/18 01:33 70 21 98 Facial 30 06/05/18 01:10 72 20 98 Nasal Cannula 2.0 28 06/05/18 01:10 68 20 95 Nasal Cannula 2.0 28 06/05/18 00:00 97.0 86 21 95/51 (66) 100 97.0 06/04/18 23:34 80 06/04/18 22:59 81 20 99 Nasal Cannula 3.0 32 06/04/18 22:59 79 20 96 Nasal Cannula 3.0 32 06/04/18 21:46 68 20 100 Nasal Cannula 2.0 28 06/04/18 21:45 62 20 98 Nasal Cannula 2.0 28 06/04/18 21:00 Nasal Cannula 3.0 Intake and Output 06/04/18 06/05/18 19:00 07:00 Intake Total 480 ml 120 ml Balance 480 ml 120 ml Intake Oral 480 ml 120 ml Laboratory Tests 06/05/18 13:50: White Blood Count 7.0, Red Blood Count 3.47L, Hemoglobin 10.2L, Hematocrit 33.9L , Mean Corpuscular Volume 98, Mean Corpuscular Hemoglobin 29.3, Mean Corpuscular Hemoglobin Concent 29.9L, Red Cell Distribution Width 19.8H, Platelet Count 104L, Mean Platelet Volume 9.6, Neutrophils (%) (Auto) 70.1, Lymphocytes (%) (Auto) 13.1L, Monocytes (%) (Auto) 10.6H, Eosinophils (%) (Auto ) 4.9H, Basophils (%) (Auto) 1.3, Sodium Level 132L, Potassium Level 4.3, Chloride Level 100, Carbon Dioxide Level 24, Anion Gap 8, Blood Urea Nitrogen 31H, Creatinine 5.4H, Estimat Glomerular Filtration Rate , Glucose Level 187H, Calcium Level 8.4L Height (Feet): 5 Height (Inches): 5.00 Weight (Pounds): 207 General Appearance: WD/WN, alert EENT: PERRL/EOMI Neck: normal alignment, supple Cardiovascular: normal rate, JVD Respiratory/Chest: crackles/rales, expiratory wheezing Extremities: moderate edema Neurologic: configuration management manager II-XII grossly normal Romel Devine MD Jun 05, 2018 21:07
--- NOTE | 2018-06-05 21:35 | Pulmonology Progress Note ---
Assessment/Plan Assessment/Plan Assessment/Plan Pulmonary Progress Note IMPRESSION: 1. Evidence of pulmonary edema. with poor EF 2. COPD with acute exacerbation. 3. Protein-calorie malnutrition, severe. 4. Troponin leak, possible non-STEMI. 5. Chronic renal failure on HD 6. Hyperglycemia. 7. NSVT PLAN IV steroids DC respiratory care: HHN Q4 and Q2 PRN Monitor vitals monitor clinically cards input reviewed; monitor for arrythmia orders and nursing notes reviewed monitor for cardiac asthma no distress at present continue same impression, plan, and exam edited and reviewed in detail care discussed with RN Subjective ROS Limited/Unobtainable: Yes Allergies: Coded Allergies: MIDAZOLAM (Verified Allergy, Unknown, 05/25/18) Subjective had episode of VT findings reviewed poor EF noted fluid issues and shifts reviewed Objective Last 24 Hour Vital Signs Date Time Temp Pulse Resp B/P (MAP) Pulse Ox O2 Delivery O2 Flow Rate FiO2 06/02/18 08:02 96 Nasal Cannula 3.0 32 06/02/18 08:02 Nasal Cannula 3.0 32 06/02/18 07:59 68 20 96 Nasal Cannula 3.0 32 06/02/18 04:00 85 06/02/18 04:00 97.0 70 19 104/78 (87) 98 97.0 06/02/18 01:24 58 20 97 Nasal Cannula 3.0 32 06/02/18 01:15 60 22 98 Nasal Cannula 3.0 32 06/02/18 00:00 97.0 85 19 106/73 (84) 98 97.0 06/02/18 00:00 85 06/01/18 21:00 Nasal Cannula 2.0 06/01/18 20:21 83 136/67 06/01/18 20:00 82 06/01/18 20:00 97.2 83 19 136/67 (90) 100 97.2 06/01/18 19:16 68 18 97 Nasal Cannula 3.0 32 06/01/18 19:15 80 18 94 Nasal Cannula 3.0 32 06/01/18 19:06 94 Nasal Cannula 3.0 32 06/01/18 19:06 Nasal Cannula 3.0 32 06/01/18 19:05 78 20 94 Nasal Cannula 3.0 32 06/01/18 16:00 85 06/01/18 16:00 96.8 97 16 108/82 (91) 97 96.8 06/01/18 13:47 55 20 99 Nasal Cannula 2.0 28 06/01/18 13:39 51 20 99 Nasal Cannula 2.0 28 06/01/18 12:00 76 06/01/18 12:00 96.8 76 16 136/74 (94) 96 96.8 06/01/18 09:00 Nasal Cannula 3.0 06/01/18 08:58 96 119/70 Intake and Output 06/01/18 06/02/18 19:00 07:00 Intake Total 480 ml 200 ml Balance 480 ml 200 ml Intake Oral 480 ml 200 ml Objective GENERAL: A well-developed female, advanced age. NAD NAD HEENT: Negative. NECK: Supple. Without jugular venous distention. LUNGS: some crackles noted at the bases. no wheeze CARDIAC: Normal S1, S2. Regular rate and rhythm without murmurs, rubs, or gallops. ABDOMEN: Soft, nontender, and nondistended. no HSM EXTREMITIES: some edema. No cyanosis or clubbing. NEUROLOGIC: Grossly nonfocal, weak, and confused. Current Medications Medications (Trade) Dose Ordered Sig/Toby Route PRN Reason Start Time Stop Time Status Last Admin Dose Admin Acetaminophen (Tylenol) 650 mg Q4H PRN ORAL Mild Pain (Pain Scale 1-3) 05/26/18 01:15 06/25/18 01:14 Albuterol/ Ipratropium (Albuterol/ Ipratropium) 3 ml Q6H HHN 05/31/18 20:15 06/25/18 20:14 06/02/18 07:59 Aspirin (ASA) 81 mg DAILY ORAL 05/26/18 09:00 06/25/18 08:59 06/01/18 08:58 Carvedilol (Coreg) 3.125 mg EVERY 12 HOURS ORAL 05/27/18 21:00 06/26/18 20:59 06/01/18 20:21 Dextrose (Dextrose 50%) 25 ml STAT PRN IV Hypoglycemia 05/26/18 01:15 06/25/18 01:14 Dextrose (Dextrose 50%) 50 ml STAT PRN IV Hypoglycemia 05/26/18 01:15 06/25/18 01:14 Docusate Sodium (Colace) 100 mg EVERY 12 HOURS ORAL 05/26/18 09:00 06/25/18 08:59 06/01/18 20:21 Epoetin Rodo (Procrit (for ESRD on dialysis)) 7,000 units MON-WED-TUE SUBQ 05/26/18 21:00 06/25/18 20:59 05/31/18 22:59 Guaifenesin (Robitussin) 200 mg BID PRN ORAL For Cough 05/27/18 17:00 06/26/18 16:59 05/29/18 16:41 Heparin Sodium (Porcine) (Heparin 5000 units/ml) 5,000 units EVERY 12 HOURS SUBQ 05/26/18 09:00 06/25/18 08:59 06/01/18 20:23 Heparin Sodium (Porcine) (Heparin Sod 1000 units/ml 10ml) 2,000 unit ONCE IV 05/31/18 18:45 06/30/18 18:44 05/31/18 18:53 Heparin Sodium (Porcine) (Heparin) 1,000 unit POSTHD INJ 05/27/18 01:15 06/26/18 01:14 05/29/18 08:44 Iron Sucrose 100 mg/Sodium Chloride 60 ml @ 240 mls/hr BEDTIME IV 05/30/18 21:00 06/03/18 21:14 06/01/18 20:21 Magnesium Hydroxide (Mom) 30 ml HSPRN PRN ORAL Constipation 05/26/18 01:15 06/25/18 01:14 06/01/18 20:21 Ondansetron HCl (Zofran) 4 mg Q6H PRN IVP Nausea & Vomiting 05/26/18 01:15 06/25/18 01:14 Pantoprazole (Protonix) 40 mg DAILY ORAL 05/26/18 09:00 06/25/18 08:59 06/01/18 08:58 Subjective ROS Limited/Unobtainable: No Allergies: Coded Allergies: MIDAZOLAM (Verified Allergy, Unknown, 05/25/18) Objective Last 24 Hour Vital Signs Date Time Temp Pulse Resp B/P (MAP) Pulse Ox O2 Delivery O2 Flow Rate FiO2 06/05/18 20:23 73 97/58 06/05/18 20:03 98 Nasal Cannula 2.0 28 06/05/18 20:03 Nasal Cannula 2.0 28 06/05/18 17:15 Nasal Cannula 2.0 06/05/18 16:05 Nasal Cannula 2.0 06/05/18 16:00 69 06/05/18 16:00 97.8 74 20 134/59 (84) 98 97.8 06/05/18 14:03 63 20 100 Nasal Cannula 3.0 32 06/05/18 13:55 65 20 100 Nasal Cannula 3.0 32 06/05/18 12:00 70 06/05/18 12:00 97.0 78 24 110/64 (79) 98 97.0 06/05/18 10:01 61 18 99 Nasal Cannula 3.0 32 06/05/18 09:57 100 Nasal Cannula 3.0 32 06/05/18 09:57 Nasal Cannula 3.0 32 06/05/18 09:54 67 20 100 Nasal Cannula 3.0 32 06/05/18 09:00 Nasal Cannula 3.0 06/05/18 08:00 78 06/05/18 08:00 96.6 65 18 92/62 (72) 100 96.6 06/05/18 04:05 78 06/05/18 04:00 97.0 81 20 104/53 (70) 100 97.0 06/05/18 03:43 Nasal Cannula 3.0 32 06/05/18 03:43 Nasal Cannula 3.0 32 06/05/18 03:30 96 Nasal Cannula 2.0 28 06/05/18 03:30 72 24 95 Facial 30 06/05/18 01:33 70 21 98 Facial 30 06/05/18 01:10 72 20 98 Nasal Cannula 2.0 28 06/05/18 01:10 68 20 95 Nasal Cannula 2.0 28 06/05/18 00:00 97.0 86 21 95/51 (66) 100 97.0 06/04/18 23:34 80 06/04/18 22:59 81 20 99 Nasal Cannula 3.0 32 06/04/18 22:59 79 20 96 Nasal Cannula 3.0 32 06/04/18 21:46 68 20 100 Nasal Cannula 2.0 28 06/04/18 21:45 62 20 98 Nasal Cannula 2.0 28 Intake and Output 06/04/18 06/05/18 19:00 07:00 Intake Total 480 ml 120 ml Balance 480 ml 120 ml Intake Oral 480 ml 120 ml Laboratory Tests 06/05/18 13:50: White Blood Count 7.0, Red Blood Count 3.47L, Hemoglobin 10.2L, Hematocrit 33.9L , Mean Corpuscular Volume 98, Mean Corpuscular Hemoglobin 29.3, Mean Corpuscular Hemoglobin Concent 29.9L, Red Cell Distribution Width 19.8H, Platelet Count 104L, Mean Platelet Volume 9.6, Neutrophils (%) (Auto) 70.1, Lymphocytes (%) (Auto) 13.1L, Monocytes (%) (Auto) 10.6H, Eosinophils (%) (Auto ) 4.9H, Basophils (%) (Auto) 1.3, Sodium Level 132L, Potassium Level 4.3, Chloride Level 100, Carbon Dioxide Level 24, Anion Gap 8, Blood Urea Nitrogen 31H, Creatinine 5.4H, Estimat Glomerular Filtration Rate , Glucose Level 187H, Calcium Level 8.4L Current Medications Medications (Trade) Dose Ordered Sig/Toby Route PRN Reason Start Time Stop Time Status Last Admin Dose Admin Acetaminophen (Tylenol) 650 mg Q4H PRN ORAL Mild Pain (Pain Scale 1-3) 05/26/18 01:15 06/25/18 01:14 06/03/18 00:24 Albuterol Sulfate (Proventil) 2.5 mg Q4H PRN HHN Shortness of Breath 06/05/18 01:30 06/10/18 01:29 06/05/18 13:54 Aspirin (ASA) 81 mg DAILY ORAL 05/26/18 09:00 06/25/18 08:59 06/04/18 08:26 Carvedilol (Coreg) 3.125 mg EVERY 12 HOURS ORAL 05/27/18 21:00 06/26/18 20:59 06/04/18 20:52 Chlorhexidine Gluconate (Tamara-Hex 2%) 1 applic DAILY@1999 TOPIC 06/03/18 20:00 07/03/18 19:59 06/05/18 20:58 Dextrose (Dextrose 50%) 25 ml STAT PRN IV Hypoglycemia 05/26/18 01:15 06/25/18 01:14 Dextrose (Dextrose 50%) 50 ml STAT PRN IV Hypoglycemia 05/26/18 01:15 06/25/18 01:14 Docusate Sodium (Colace) 100 mg EVERY 12 HOURS ORAL 05/26/18 09:00 06/25/18 08:59 06/05/18 20:58 Epoetin Rodo (Procrit (for ESRD on dialysis)) 7,000 units TUE-TUE-TUE SUBQ 05/26/18 21:00 06/25/18 20:59 06/05/18 20:59 Guaifenesin (Robitussin) 200 mg BID PRN ORAL For Cough 05/27/18 17:00 06/26/18 16:59 05/29/18 16:41 Heparin Sodium (Porcine) (Heparin 5000 units/ml) 5,000 units EVERY 12 HOURS SUBQ 05/26/18 09:00 06/25/18 08:59 06/03/18 22:03 Heparin Sodium (Porcine) (Heparin Sod 1000 units/ml 10ml) 500 unit ONCE PRN IV Dialysis Use 06/05/18 06:00 06/05/18 23:59 Heparin Sodium (Porcine) (Heparin Sod 1000 units/ml 10ml) 2,000 unit ONCE IV 06/06/18 21:15 06/06/18 22:15 Heparin Sodium (Porcine) (Heparin) 1,000 unit POSTHD PRN INJ Dialysis Use 06/05/18 06:00 06/05/18 23:59 Magnesium Hydroxide (Mom) 30 ml HSPRN PRN ORAL Constipation 05/26/18 01:15 06/25/18 01:14 06/01/18 20:21 Ondansetron HCl (Zofran) 4 mg Q6H PRN IVP Nausea & Vomiting 05/26/18 01:15 06/25/18 01:14 Pantoprazole (Protonix) 40 mg DAILY ORAL 05/26/18 09:00 06/25/18 08:59 06/05/18 10:24 Patient Own Medication (Patient's Own Med) 1 ea BID ORAL 06/02/18 18:00 07/02/18 17:59 06/05/18 17:27 Sodium Chloride 1,000 ml @ 500 mls/hr Q2H PRN IVLG sbp<90 during hd 06/05/18 06:00 06/05/18 23:59 Sodium Chloride 1,000 ml @ 500 mls/hr Q2H PRN IVLG sbp<90 during hd 06/03/18 08:50 07/03/18 08:49 Parajmit Esparza MD Jun 05, 2018 21:35
[2018-06-06] VITALS (7 sets, daily range): BP systolic 87–107; BP diastolic 51–58
[2018-06-06] MEDS: Heparin 5000 units/ml inj SUBQ SCH ×2 (08:41→21:00)
[2018-06-06] MEDS: Aspirin Baby 81mg ORAL SCH (08:41)
[2018-06-06] MEDS: ENTRESTO ORAL SCH ×2 (09:00→17:30)
[2018-06-06] MEDS: Docusate 100mg cap ORAL SCH ×2 (10:12→20:37)
--- NOTE | 2018-06-06 11:26 | Pulmonology Progress Note ---
Assessment/Plan Assessment/Plan IMPRESSION: 1. Evidence of pulmonary edema. with poor EF 2. COPD with acute exacerbation. 3. Protein-calorie malnutrition, severe. 4. Troponin leak, possible non-STEMI. 5. Chronic renal failure. 6. Hyperglycemia. 7. NSVT PLAN respiratory care as is keep negative and monitor monitor clinically for change and congestion cards keep negative orders and nursing notes reviewed monitor for cardiac asthma low flow oxygen aspiration monitoring continue same impression, plan, and exam edited and reviewed in detail care discussed with RN Subjective ROS Limited/Unobtainable: Yes Allergies: Coded Allergies: MIDAZOLAM (Verified Allergy, Unknown, 05/25/18) Subjective 72 hour stay reviewed d/w staff care noted off steroids Objective Last 24 Hour Vital Signs Date Time Temp Pulse Resp B/P (MAP) Pulse Ox O2 Delivery O2 Flow Rate FiO2 06/06/18 08:44 Nasal Cannula 3.0 06/06/18 08:41 73 88/57 06/06/18 08:10 83 06/06/18 08:00 96.6 73 20 88/57 (67) 97 96.6 06/06/18 07:35 99 Nasal Cannula 2.0 28 06/06/18 07:35 Nasal Cannula 2.0 28 06/06/18 04:00 97.0 82 24 101/54 (70) 97 97.0 06/06/18 03:54 84 06/06/18 00:00 97.1 85 25 102/58 (73) 99 97.1 06/05/18 23:43 87 06/05/18 21:00 Nasal Cannula 3.0 06/05/18 20:23 73 97/58 06/05/18 20:03 98 Nasal Cannula 2.0 28 06/05/18 20:03 Nasal Cannula 2.0 28 06/05/18 20:00 97.0 73 25 97/58 (71) 99 97.0 06/05/18 19:03 66 06/05/18 17:15 Nasal Cannula 2.0 06/05/18 16:05 Nasal Cannula 2.0 06/05/18 16:00 69 06/05/18 16:00 97.8 74 20 134/59 (84) 98 97.8 06/05/18 14:03 63 20 100 Nasal Cannula 3.0 32 06/05/18 13:55 65 20 100 Nasal Cannula 3.0 32 06/05/18 12:00 70 06/05/18 12:00 97.0 78 24 110/64 (79) 98 97.0 Intake and Output 06/05/18 06/06/18 19:00 07:00 Intake Total 120 ml Balance 120 ml Intake Oral 120 ml Objective GENERAL: A well-developed female, advanced age. NAD HEENT: Negative. NECK: Supple. Without jugular venous distention. LUNGS: moderate breath sounds; no rhonchi; no wheeze CARDIAC: Normal S1, S2. Regular rate and rhythm without murmurs, rubs, or gallops. ABDOMEN: Soft, nontender, and nondistended. no HSM; no distention EXTREMITIES: some edema. No cyanosis or clubbing. NEUROLOGIC: Grossly nonfocal, weak, and confused. Laboratory Tests 06/05/18 13:50: White Blood Count 7.0, Red Blood Count 3.47L, Hemoglobin 10.2L, Hematocrit 33.9L , Mean Corpuscular Volume 98, Mean Corpuscular Hemoglobin 29.3, Mean Corpuscular Hemoglobin Concent 29.9L, Red Cell Distribution Width 19.8H, Platelet Count 104L, Mean Platelet Volume 9.6, Neutrophils (%) (Auto) 70.1, Lymphocytes (%) (Auto) 13.1L, Monocytes (%) (Auto) 10.6H, Eosinophils (%) (Auto ) 4.9H, Basophils (%) (Auto) 1.3, Sodium Level 132L, Potassium Level 4.3, Chloride Level 100, Carbon Dioxide Level 24, Anion Gap 8, Blood Urea Nitrogen 31H, Creatinine 5.4H, Estimat Glomerular Filtration Rate , Glucose Level 187H, Calcium Level 8.4L Current Medications Medications (Trade) Dose Ordered Sig/Toby Route PRN Reason Start Time Stop Time Status Last Admin Dose Admin Acetaminophen (Tylenol) 650 mg Q4H PRN ORAL Mild Pain (Pain Scale 1-3) 05/26/18 01:15 06/25/18 01:14 06/03/18 00:24 Albuterol Sulfate (Proventil) 2.5 mg Q4H PRN HHN Shortness of Breath 06/05/18 01:30 06/10/18 01:29 06/05/18 13:54 Aspirin (ASA) 81 mg DAILY ORAL 05/26/18 09:00 06/25/18 08:59 06/04/18 08:26 Carvedilol (Coreg) 3.125 mg EVERY 12 HOURS ORAL 05/27/18 21:00 06/26/18 20:59 06/04/18 20:52 Chlorhexidine Gluconate (Tamara-Hex 2%) 1 applic DAILY@2000 TOPIC 06/03/18 20:00 07/03/18 19:59 06/05/18 20:58 Dextrose (Dextrose 50%) 25 ml STAT PRN IV Hypoglycemia 05/26/18 01:15 06/25/18 01:14 Dextrose (Dextrose 50%) 50 ml STAT PRN IV Hypoglycemia 05/26/18 01:15 06/25/18 01:14 Docusate Sodium (Colace) 100 mg EVERY 12 HOURS ORAL 05/26/18 09:00 06/25/18 08:59 06/06/18 10:12 Epoetin Rodo (Procrit (for ESRD on dialysis)) 7,000 units TUE-TUE-TUE SUBQ 05/26/18 21:00 06/25/18 20:59 06/05/18 20:59 Guaifenesin (Robitussin) 200 mg BID PRN ORAL For Cough 05/27/18 17:00 06/26/18 16:59 05/29/18 16:41 Heparin Sodium (Porcine) (Heparin 5000 units/ml) 5,000 units EVERY 12 HOURS SUBQ 05/26/18 09:00 06/25/18 08:59 06/03/18 22:03 Heparin Sodium (Porcine) (Heparin Sod 1000 units/ml 10ml) 2,000 unit ONCE IV 06/06/18 21:15 06/06/18 22:15 Magnesium Hydroxide (Mom) 30 ml HSPRN PRN ORAL Constipation 05/26/18 01:15 06/25/18 01:14 06/01/18 20:21 Ondansetron HCl (Zofran) 4 mg Q6H PRN IVP Nausea & Vomiting 05/26/18 01:15 06/25/18 01:14 Pantoprazole (Protonix) 40 mg DAILY ORAL 05/26/18 09:00 06/25/18 08:59 06/06/18 10:13 Patient Own Medication (Patient's Own Med) 1 ea BID ORAL 06/02/18 18:00 07/02/18 17:59 06/05/18 17:27 Sodium Chloride 1,000 ml @ 500 mls/hr Q2H PRN IVLG sbp<90 during hd 06/03/18 08:50 07/03/18 08:49 Mohsen Wells MD Jun 06, 2018 11:26
[2018-06-06] MEDS ORDERED: Sodium Chloride 500ML 500 ML IV ONE (11:30)
--- NOTE | 2018-06-06 16:59 | Nephrology Progress Note ---
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 2) Acute exacerbation of systolic CHF 3) Cardio-renal, now on HD Plan: HD today Subjective Subjective She is still on O2, Very weak, BP dropped to 80's, received 500 cc NS bolus Objective Objective Last 24 Hour Vital Signs Date Time Temp Pulse Resp B/P (MAP) Pulse Ox O2 Delivery O2 Flow Rate FiO2 06/06/18 13:02 71 104/57 (73) 06/06/18 12:00 96.1 78 18 97/51 (66) 100 96.1 06/06/18 11:49 77 06/06/18 08:44 Nasal Cannula 3.0 06/06/18 08:41 73 88/57 06/06/18 08:10 83 06/06/18 08:00 96.6 73 20 88/57 (67) 97 96.6 06/06/18 07:35 99 Nasal Cannula 2.0 28 06/06/18 07:35 Nasal Cannula 2.0 28 06/06/18 04:00 97.0 82 24 101/54 (70) 97 97.0 06/06/18 03:54 84 06/06/18 00:00 97.1 85 25 102/58 (73) 99 97.1 06/05/18 23:43 87 06/05/18 21:00 Nasal Cannula 3.0 06/05/18 20:23 73 97/58 06/05/18 20:03 98 Nasal Cannula 2.0 28 06/05/18 20:03 Nasal Cannula 2.0 28 06/05/18 20:00 97.0 73 25 97/58 (71) 99 97.0 06/05/18 19:03 66 06/05/18 17:15 Nasal Cannula 2.0 Intake and Output 06/05/18 06/06/18 19:00 07:00 Intake Total 120 ml Balance 120 ml Intake Oral 120 ml Height (Feet): 5 Height (Inches): 5.00 Weight (Pounds): 206 General Appearance: WD/WN, no apparent distress EENT: PERRL/EOMI Neck: non-tender Cardiovascular: normal peripheral pulses, normal rate Respiratory/Chest: chest wall non-tender, crackles/rales, expiratory wheezing Abdomen: non tender, soft Neurologic: director retirement II-XII grossly normal Romel Devine MD Jun 06, 2018 16:59
[2018-06-06] MEDS: Dyna-Hex 2% Top Sol 2oz TOPIC SCH (20:37)
[2018-06-06] MEDS: Albuterol ud Inhalation HHN PRN (20:41)
[2018-06-06] MEDS ORDERED: Heparin Sod 1000 units/ml 10ml IV SCH (21:15)
--- NOTE | 2018-06-06 21:40 | Cardiology Progress Note ---
Assessment/Plan Assessment/Plan very ill patient with advanced right and left heart failure, not a candidate for transplant or artificial heart. Prognosis is poor Subjective Subjective the patient dropped her Bp today and was given bolus she is confused, and SOB Objective Last 24 Hour Vital Signs Date Time Temp Pulse Resp B/P (MAP) Pulse Ox O2 Delivery O2 Flow Rate FiO2 06/06/18 20:42 78 107/55 06/06/18 20:41 100 Nasal Cannula 2.0 28 06/06/18 20:41 78 18 100 Nasal Cannula 2.0 28 06/06/18 20:41 Nasal Cannula 2.0 28 06/06/18 20:00 77 06/06/18 16:00 96.6 73 18 87/53 (64) 96.6 06/06/18 15:42 77 06/06/18 13:02 71 104/57 (73) 06/06/18 12:00 96.1 78 18 97/51 (66) 100 96.1 06/06/18 11:49 77 06/06/18 08:44 Nasal Cannula 3.0 06/06/18 08:41 73 88/57 06/06/18 08:10 83 06/06/18 08:00 96.6 73 20 88/57 (67) 97 96.6 06/06/18 07:35 99 Nasal Cannula 2.0 28 06/06/18 07:35 Nasal Cannula 2.0 28 06/06/18 04:00 97.0 82 24 101/54 (70) 97 97.0 06/06/18 03:54 84 06/06/18 00:00 97.1 85 25 102/58 (73) 99 97.1 06/05/18 23:43 87 General Appearance: lethargic EENT: PERRL/EOMI Neck: JVD - very high Rhythm: Afib, VT Cardiovascular: bradycardia Respiratory/Chest: crackles/rales, rhonchi - bilaterally Abdomen: distended - ascites, other - severe anasarka Extremities: severe edema Neurologic: disoriented Intake and Output 06/05/18 06/06/18 19:00 07:00 Intake Total 120 ml Balance 120 ml Intake Oral 120 ml Megan Arthur MD Jun 06, 2018 21:40
[2018-06-07] VITALS: BP 110/58
[2018-06-07 04:00] VITALS: BP 87/50
[2018-06-07 08:00] VITALS: BP 94/49
[2018-06-07] MEDS ORDERED: Heparin Sod 1000 units/ml 10ml IV PRN (08:00)
[2018-06-07] MEDS ORDERED: Heparin 1000 units/ml 1ml Vial INJ PRN (08:00)
--- NOTE | 2018-06-07 08:10 | Nephrology Progress Note ---
Assessment/Plan Plan 2 D Echo LVEF 15% !!! Previously ~20% about 3 months ago. ESRD + Intractable CHF ----> HD frequently, fluid restriction. HD today. Arranging outpatient HD x4 per week -requested. Subjective Subjective Less SOB! Was hypotensive yesterday. Received 500 cc NS bolus. Objective Objective Last 24 Hour Vital Signs Date Time Temp Pulse Resp B/P (MAP) Pulse Ox O2 Delivery O2 Flow Rate FiO2 06/07/18 04:00 97.6 85 21 87/50 (62) 99 97.6 06/07/18 04:00 74 06/07/18 00:00 97.4 82 20 110/58 (75) 98 97.4 06/07/18 00:00 70 06/06/18 21:00 Nasal Cannula 3.0 06/06/18 20:42 78 107/55 06/06/18 20:41 100 Nasal Cannula 2.0 28 06/06/18 20:41 78 18 100 Nasal Cannula 2.0 28 06/06/18 20:41 Nasal Cannula 2.0 28 06/06/18 20:00 97.2 78 22 107/55 (72) 97 97.2 06/06/18 20:00 77 06/06/18 16:00 96.6 73 18 87/53 (64) 96.6 06/06/18 15:42 77 06/06/18 13:02 71 104/57 (73) 06/06/18 12:00 96.1 78 18 97/51 (66) 100 96.1 06/06/18 11:49 77 06/06/18 08:44 Nasal Cannula 3.0 06/06/18 08:41 73 88/57 06/06/18 08:10 83 Intake and Output 06/06/18 06/07/18 19:00 07:00 Intake Total 600 ml 360 ml Balance 600 ml 360 ml Intake Oral 600 ml 360 ml # Voids 1 # Bowel Movements 1 1 Height (Feet): 5 Height (Inches): 5.00 Weight (Pounds): 211 Objective BP 87/50 p 82. Asymptomatic. CV RR 2/6 SM Lungs B wheezes. Abs SNT. BS + E ++ edema. L arm edema>>Rt. Cristy Clemente MD Jun 07, 2018 08:10
[2018-06-07] MEDS: Aspirin Baby 81mg ORAL SCH (08:38)
[2018-06-07] MEDS: Docusate 100mg cap ORAL SCH ×2 (08:38→21:42)
[2018-06-07] MEDS: ENTRESTO ORAL SCH ×2 (08:39→21:41)
--- NOTE | 2018-06-07 08:45 | Pulmonology Progress Note ---
Assessment/Plan Assessment/Plan IMPRESSION: 1. Evidence of pulmonary edema. with poor EF 2. COPD with acute exacerbation. 3. Protein-calorie malnutrition, severe. 4. Troponin leak, possible non-STEMI. 5. Chronic renal failure. 6. Hyperglycemia. 7. NSVT PLAN respiratory care and monitor keep negative and monitor monitor clinically for change and congestion cards keep negative orders and nursing notes reviewed monitor for cardiac asthma low flow oxygen for now aspiration monitoring and monitor continue same for now impression, plan, and exam edited and reviewed in detail care discussed with RN Subjective ROS Limited/Unobtainable: Yes Allergies: Coded Allergies: MIDAZOLAM (Verified Allergy, Unknown, 05/25/18) Subjective findings noted d/w staff care noted off steroids and stable at present Objective Last 24 Hour Vital Signs Date Time Temp Pulse Resp B/P (MAP) Pulse Ox O2 Delivery O2 Flow Rate FiO2 06/07/18 08:00 96.9 75 20 94/49 (64) 96 96.9 06/07/18 04:00 97.6 85 21 87/50 (62) 99 97.6 06/07/18 04:00 74 06/07/18 00:00 97.4 82 20 110/58 (75) 98 97.4 06/07/18 00:00 70 06/06/18 21:00 Nasal Cannula 3.0 06/06/18 20:42 78 107/55 06/06/18 20:41 100 Nasal Cannula 2.0 28 06/06/18 20:41 78 18 100 Nasal Cannula 2.0 28 06/06/18 20:41 Nasal Cannula 2.0 28 06/06/18 20:00 97.2 78 22 107/55 (72) 97 97.2 06/06/18 20:00 77 06/06/18 16:00 96.6 73 18 87/53 (64) 96.6 06/06/18 15:42 77 06/06/18 13:02 71 104/57 (73) 06/06/18 12:00 96.1 78 18 97/51 (66) 100 96.1 06/06/18 11:49 77 Intake and Output 06/06/18 06/07/18 19:00 07:00 Intake Total 600 ml 360 ml Balance 600 ml 360 ml Intake Oral 600 ml 360 ml # Voids 1 # Bowel Movements 1 1 Objective GENERAL: A well-developed female, advanced age. NAD HEENT: Negative. NECK: Supple. Without jugular venous distention. LUNGS: moderate breath sounds; no rhonchi; no wheeze; symmetric CARDIAC: Normal S1, S2. Regular rate and rhythm without murmurs, rubs, or gallops. ABDOMEN: Soft, nontender, and nondistended. no HSM; no distention EXTREMITIES: some edema. No cyanosis or clubbing. NEUROLOGIC: Grossly nonfocal, weak, and confused. reviewed and edited Current Medications Medications (Trade) Dose Ordered Sig/Toby Route PRN Reason Start Time Stop Time Status Last Admin Dose Admin Acetaminophen (Tylenol) 650 mg Q4H PRN ORAL Mild Pain (Pain Scale 1-3) 05/26/18 01:15 06/25/18 01:14 06/03/18 00:24 Albuterol Sulfate (Proventil) 2.5 mg Q4H PRN HHN Shortness of Breath 06/05/18 01:30 06/10/18 01:29 06/06/18 20:41 Aspirin (ASA) 81 mg DAILY ORAL 05/26/18 09:00 06/25/18 08:59 06/07/18 08:38 Carvedilol (Coreg) 3.125 mg EVERY 12 HOURS ORAL 05/27/18 21:00 06/26/18 20:59 06/06/18 20:42 Chlorhexidine Gluconate (Tamara-Hex 2%) 1 applic DAILY@1999 TOPIC 06/03/18 20:00 07/03/18 19:59 06/06/18 20:37 Dextrose (Dextrose 50%) 25 ml STAT PRN IV Hypoglycemia 05/26/18 01:15 06/25/18 01:14 Dextrose (Dextrose 50%) 50 ml STAT PRN IV Hypoglycemia 05/26/18 01:15 06/25/18 01:14 Docusate Sodium (Colace) 100 mg EVERY 12 HOURS ORAL 05/26/18 09:00 06/25/18 08:59 06/07/18 08:38 Epoetin Rodo (Procrit (for ESRD on dialysis)) 7,000 units MON-WED-FRI SUBQ 05/26/18 21:00 06/25/18 20:59 06/05/18 20:59 Guaifenesin (Robitussin) 200 mg BID PRN ORAL For Cough 05/27/18 17:00 10/1/18 16:59 05/29/18 16:41 Heparin Sodium (Porcine) (Heparin 5000 units/ml) 5,000 units EVERY 12 HOURS SUBQ 05/26/18 09:00 06/25/18 08:59 06/03/18 22:03 Heparin Sodium (Porcine) (Heparin Sod 1000 units/ml 10ml) 500 unit ONCE PRN IV dialysis use 06/07/18 08:00 06/07/18 20:00 Heparin Sodium (Porcine) (Heparin) 1,000 unit POSTHD PRN INJ dialysis use 06/07/18 08:00 06/07/18 20:00 Magnesium Hydroxide (Mom) 30 ml HSPRN PRN ORAL Constipation 05/26/18 01:15 06/25/18 01:14 06/01/18 20:21 Ondansetron HCl (Zofran) 4 mg Q6H PRN IVP Nausea & Vomiting 05/26/18 01:15 06/25/18 01:14 Pantoprazole (Protonix) 40 mg DAILY ORAL 05/26/18 09:00 06/25/18 08:59 06/07/18 08:38 Patient Own Medication (Patient's Own Med) 1 ea BID ORAL 06/02/18 18:00 07/02/18 17:59 06/07/18 08:39 Sodium Chloride 1,000 ml @ 500 mls/hr Q2H PRN IVLG sbp<90 during hd 06/07/18 08:00 06/07/18 20:00 Sodium Chloride 1,000 ml @ 500 mls/hr Q2H PRN IVLG sbp<90 during hd 06/03/18 08:50 07/03/18 08:49 06/07/18 04:33 Mohsen Wells MD Jun 07, 2018 08:45
[2018-06-07] MEDS: Heparin 5000 units/ml inj SUBQ SCH ×2 (09:00→21:00)
[2018-06-07 12:00] VITALS: BP 115/51
[2018-06-07 16:00] VITALS: BP 96/54
[2018-06-07 20:00] VITALS: BP 108/58
[2018-06-07] MEDS: Dyna-Hex 2% Top Sol 2oz TOPIC SCH (20:25)
--- NOTE | 2018-06-07 21:18 | Cardiology Progress Note ---
Assessment/Plan Assessment/Plan severe heart failure, poor prognosis Subjective Subjective remains very short of breath slightly confused Objective Last 24 Hour Vital Signs Date Time Temp Pulse Resp B/P (MAP) Pulse Ox O2 Delivery O2 Flow Rate FiO2 06/07/18 20:14 Nasal Cannula 2.0 06/07/18 20:00 97.9 76 19 108/58 (75) 99 97.9 06/07/18 19:48 Nasal Cannula 2.0 06/07/18 16:00 71 06/07/18 16:00 96.9 64 20 96/54 (68) 98 96.9 06/07/18 12:00 63 06/07/18 12:00 96.8 79 20 115/51 (72) 99 96.8 06/07/18 09:00 Nasal Cannula 3.0 06/07/18 08:45 75 94/49 06/07/18 08:00 80 06/07/18 08:00 Nasal Cannula 2.0 28 06/07/18 08:00 98 Nasal Cannula 2.0 28 06/07/18 08:00 96.9 75 20 94/49 (64) 96 96.9 06/07/18 04:00 97.6 85 21 87/50 (62) 99 97.6 06/07/18 04:00 74 06/07/18 00:00 97.4 82 20 110/58 (75) 98 97.4 06/07/18 00:00 70 General Appearance: lethargic EENT: PERRL/EOMI Neck: JVD - severe Rhythm: Afib Cardiovascular: bradycardia Respiratory/Chest: crackles/rales, rhonchi - bilaterally Abdomen: distended - ascited, anasarka Extremities: severe edema Intake and Output 06/06/18 06/07/18 19:00 07:00 Intake Total 600 ml 360 ml Balance 600 ml 360 ml Intake Oral 600 ml 360 ml # Voids 1 # Bowel Movements 1 1 Megan Arthur MD Jun 07, 2018 21:18
[2018-06-07] MEDS: Epogen (for ESRD on dialysis) SUBQ SCH (21:43)
[2018-06-08] VITALS (7 sets, daily range): BP systolic 85–125; BP diastolic 45–59
[2018-06-08] MEDS: Aspirin Baby 81mg ORAL SCH (08:13)
[2018-06-08] MEDS: ENTRESTO ORAL SCH ×2 (08:13→17:08)
[2018-06-08] MEDS: Docusate 100mg cap ORAL SCH ×2 (08:13→21:41)
[2018-06-08] MEDS: Heparin 5000 units/ml inj SUBQ SCH ×2 (08:16→21:00)
--- NOTE | 2018-06-08 08:54 | Pulmonology Progress Note ---
Assessment/Plan Assessment/Plan IMPRESSION: 1. Evidence of pulmonary edema. with poor EF 2. COPD with acute exacerbation. 3. Protein-calorie malnutrition, severe. 4. Troponin leak, possible non-STEMI. 5. Chronic renal failure. 6. Hyperglycemia. 7. NSVT PLAN respiratory care as is keep negative and monitor monitor clinically for change and congestion orders and nursing notes reviewed monitor for cardiac asthma and worsening bronchospasm low flow oxygen for now aspiration monitoring and monitor monitor orders and labs impression, plan, and exam edited and reviewed in detail care discussed with RN Subjective Allergies: Coded Allergies: MIDAZOLAM (Verified Allergy, Unknown, 05/25/18) Subjective findings noted overnight fairly stable care noted no recurrent bronchospasm Objective Last 24 Hour Vital Signs Date Time Temp Pulse Resp B/P (MAP) Pulse Ox O2 Delivery O2 Flow Rate FiO2 06/08/18 08:17 79 100/45 06/08/18 08:00 82 06/08/18 07:38 97.9 79 22 100/45 (63) 99 97.9 06/08/18 07:13 Nasal Cannula 3.0 06/08/18 04:00 74 06/08/18 04:00 97.9 74 22 107/47 (67) 99 97.9 06/08/18 00:00 97.2 22 125/56 (79) 97 97.2 06/07/18 21:00 76 100/58 06/07/18 21:00 Nasal Cannula 3.0 06/07/18 20:14 Nasal Cannula 2.0 06/07/18 20:00 79 06/07/18 20:00 97.9 76 19 108/58 (75) 99 97.9 06/07/18 19:48 Nasal Cannula 2.0 06/07/18 19:30 74 18 Nasal Cannula 3.0 32 06/07/18 19:30 Nasal Cannula 2.0 28 06/07/18 19:30 96 Nasal Cannula 2.0 28 06/07/18 16:00 71 06/07/18 16:00 96.9 64 20 96/54 (68) 98 96.9 06/07/18 12:00 63 06/07/18 12:00 96.8 79 20 115/51 (72) 99 96.8 06/07/18 09:00 Nasal Cannula 3.0 Intake and Output 06/07/18 06/08/18 19:00 07:00 Intake Total 360 ml 240 ml Balance 360 ml 240 ml Intake Oral 360 ml 240 ml # Bowel Movements 2 Objective GENERAL: A well-developed female, advanced age. NAD HEENT: Negative. NECK: Supple. Without jugular venous distention. LUNGS: moderate breath sounds; no rhonchi; no wheeze; symmetric CARDIAC: Normal S1, S2. Regular rate and rhythm without murmurs, rubs, or gallops. ABDOMEN: Soft, nontender, and nondistended. no HSM; no distention EXTREMITIES: some edema. No cyanosis or clubbing. NEUROLOGIC: Grossly nonfocal, weak, and confused. reviewed and edited Current Medications Medications (Trade) Dose Ordered Sig/Toby Route PRN Reason Start Time Stop Time Status Last Admin Dose Admin Acetaminophen (Tylenol) 650 mg Q4H PRN ORAL Mild Pain (Pain Scale 1-3) 05/26/18 01:15 06/25/18 01:14 06/03/18 00:24 Albuterol Sulfate (Proventil) 2.5 mg Q4H PRN HHN Shortness of Breath 06/05/18 01:30 06/10/18 01:29 06/06/18 20:41 Aspirin (ASA) 81 mg DAILY ORAL 05/26/18 09:00 06/25/18 08:59 06/08/18 08:13 Carvedilol (Coreg) 3.125 mg EVERY 12 HOURS ORAL 05/27/18 21:00 06/26/18 20:59 06/06/18 20:42 Chlorhexidine Gluconate (Tamara-Hex 2%) 1 applic DAILY@2000 TOPIC 06/03/18 20:00 07/03/18 19:59 06/07/18 20:25 Dextrose (Dextrose 50%) 25 ml STAT PRN IV Hypoglycemia 05/26/18 01:15 06/25/18 01:14 Dextrose (Dextrose 50%) 50 ml STAT PRN IV Hypoglycemia 05/26/18 01:15 06/25/18 01:14 Docusate Sodium (Colace) 100 mg EVERY 12 HOURS ORAL 05/26/18 09:00 06/25/18 08:59 06/08/18 08:13 Epoetin Rodo (Procrit (for ESRD on dialysis)) 7,000 units TUE-TUE-TUE SUBQ 05/26/18 21:00 06/25/18 20:59 06/07/18 21:43 Guaifenesin (Robitussin) 200 mg BID PRN ORAL For Cough 05/27/18 17:00 06/26/18 16:59 05/29/18 16:41 Heparin Sodium (Porcine) (Heparin 5000 units/ml) 5,000 units EVERY 12 HOURS SUBQ 05/26/18 09:00 06/25/18 08:59 06/08/18 08:16 Magnesium Hydroxide (Mom) 30 ml HSPRN PRN ORAL Constipation 05/26/18 01:15 06/25/18 01:14 06/01/18 20:21 Ondansetron HCl (Zofran) 4 mg Q6H PRN IVP Nausea & Vomiting 05/26/18 01:15 06/25/18 01:14 Pantoprazole (Protonix) 40 mg DAILY ORAL 05/26/18 09:00 06/25/18 08:59 06/08/18 08:13 Patient Own Medication (Patient's Own Med) 1 ea BID ORAL 06/02/18 18:00 07/02/18 17:59 06/08/18 08:13 Sodium Chloride 1,000 ml @ 500 mls/hr Q2H PRN IVLG sbp<90 during hd 06/03/18 08:50 07/03/18 08:49 06/07/18 04:33 Mohsen Wells MD Jun 08, 2018 08:54
[2018-06-08] MEDS: guaiFENesin 100mg/5ml Liq ud ORAL PRN (09:28)
--- NOTE | 2018-06-08 14:03 | Nephrology Progress Note ---
Assessment/Plan Plan Severe Cardio-Renal Failure. On almost daily. Surprisingly tolerating hypotension relatively well! HD today. Arranging outpatient HD x4 per week -requested from [facility] [place]. Subjective Subjective Less SOB! Hypotensive today! SBP 66-85! Objective Objective Last 24 Hour Vital Signs Date Time Temp Pulse Resp B/P (MAP) Pulse Ox O2 Delivery O2 Flow Rate FiO2 06/08/18 12:59 97.9 80 22 85/45 (58) 99 97.9 06/08/18 12:26 80 06/08/18 10:00 97.9 06/08/18 09:30 97.9 06/08/18 09:13 Nasal Cannula 2.0 28 06/08/18 09:12 99 Nasal Cannula 2.0 28 06/08/18 08:17 79 100/45 06/08/18 08:00 82 06/08/18 07:38 97.9 79 22 100/45 (63) 99 97.9 06/08/18 07:13 Nasal Cannula 3.0 06/08/18 04:00 74 06/08/18 04:00 97.9 74 22 107/47 (67) 99 97.9 06/08/18 00:00 97.2 22 125/56 (79) 97 97.2 06/07/18 21:00 76 100/58 06/07/18 21:00 Nasal Cannula 3.0 06/07/18 20:14 Nasal Cannula 2.0 06/07/18 20:00 79 06/07/18 20:00 97.9 76 19 108/58 (75) 99 97.9 06/07/18 19:48 Nasal Cannula 2.0 06/07/18 19:30 74 18 Nasal Cannula 3.0 32 06/07/18 19:30 Nasal Cannula 2.0 28 06/07/18 19:30 96 Nasal Cannula 2.0 28 06/07/18 16:00 71 06/07/18 16:00 96.9 64 20 96/54 (68) 98 96.9 Intake and Output 06/07/18 06/08/18 19:00 07:00 Intake Total 360 ml 240 ml Balance 360 ml 240 ml Intake Oral 360 ml 240 ml # Bowel Movements 2 Height (Feet): 5 Height (Inches): 5.00 Weight (Pounds): 209 Objective BP 87/50 p 82. Asymptomatic. CV RR 2/6 SM Lungs B wheezes. Abs SNT. BS + E ++ edema. L arm edema>>Rt. Cristy Clemente MD Jun 08, 2018 14:03
--- NOTE | 2018-06-08 18:03 | Cardiology Progress Note ---
Assessment/Plan Assessment/Plan no significant changes Subjective Subjective remains very short of breath very edematous slightly confused Objective Last 24 Hour Vital Signs Date Time Temp Pulse Resp B/P (MAP) Pulse Ox O2 Delivery O2 Flow Rate FiO2 06/08/18 16:00 96.1 79 20 88/50 (63) 100 96.1 06/08/18 15:56 74 06/08/18 12:59 97.9 80 22 85/45 (58) 99 97.9 06/08/18 12:26 80 06/08/18 10:00 97.9 06/08/18 09:30 97.9 06/08/18 09:13 Nasal Cannula 2.0 28 06/08/18 09:12 99 Nasal Cannula 2.0 28 06/08/18 08:17 79 100/45 06/08/18 08:00 82 06/08/18 07:38 97.9 79 22 100/45 (63) 99 97.9 06/08/18 07:13 Nasal Cannula 3.0 06/08/18 04:00 74 06/08/18 04:00 97.9 74 22 107/47 (67) 99 97.9 06/08/18 00:00 97.2 22 125/56 (79) 97 97.2 06/07/18 21:00 76 100/58 06/07/18 21:00 Nasal Cannula 3.0 06/07/18 20:14 Nasal Cannula 2.0 06/07/18 20:00 79 06/07/18 20:00 97.9 76 19 108/58 (75) 99 97.9 06/07/18 19:48 Nasal Cannula 2.0 06/07/18 19:30 74 18 Nasal Cannula 3.0 32 06/07/18 19:30 Nasal Cannula 2.0 28 06/07/18 19:30 96 Nasal Cannula 2.0 28 General Appearance: lethargic EENT: scleral icterus Neck: JVD - very high Rhythm: Afib, VT Cardiovascular: gallop/S3 Respiratory/Chest: crackles/rales, rhonchi - bilaterally Abdomen: other - edema and anasraka Extremities: severe edema Intake and Output 06/07/18 06/08/18 19:00 07:00 Intake Total 360 ml 240 ml Balance 360 ml 240 ml Intake Oral 360 ml 240 ml # Bowel Movements 2 Megan Arthur MD Jun 08, 2018 18:03
[2018-06-08 19:26] LABS: MEAN CORPUSCULAR VOLUME 99 FL (80-99); PLATELET COUNT 80 K/UL (150-450); RED BLOOD COUNT 3.35 M/UL (4.20-5.40); RED CELL DISTRIBUTION WIDTH 19.2 % (11.6-14.8)
[2018-06-08 19:29] LABS: BASOPHILS % (AUTO) 2.3 % (0.0-2.0); EOSINOPHILS % (AUTO) 3.1 % (0.0-3.0); MONOCYTES % (AUTO) 12.1 % (1.0-10.0); NEUTROPHILS % (AUTO) 64.6 % (45.0-75.0)
[2018-06-08 19:50] LABS: ANION GAP 7 mmol/L (5-15); BLOOD UREA NITROGEN 27 mg/dL (7-18); CALCIUM 8.3 MG/DL (8.5-10.1); CARBON DIOXIDE 27 MMOL/L (21-32); CHLORIDE 101 MMOL/L (98-107); CREATININE 4.6 MG/DL (0.55-1.30); POTASSIUM 4.6 MMOL/L (3.5-5.1); SODIUM 135 MMOL/L (136-145)
[2018-06-08] MEDS: Albuterol ud Inhalation HHN PRN (21:17)
[2018-06-08] MEDS: Dyna-Hex 2% Top Sol 2oz TOPIC SCH (21:41)
[2018-06-09] VITALS: BP 95/50
[2018-06-09 04:00] VITALS: BP 100/56
[2018-06-09 07:07] LABS: HEMATOCRIT 32.1 % (37.0-47.0); HEMOGLOBIN 9.6 G/DL (12.0-16.0); MEAN CORPUSCULAR VOLUME 97 FL (80-99); PLATELET COUNT 80 K/UL (150-450); RED CELL DISTRIBUTION WIDTH 18.8 % (11.6-14.8); WHITE BLOOD COUNT 5.1 K/UL (4.8-10.8)
[2018-06-09 08:00] VITALS: BP 93/42
--- NOTE | 2018-06-09 08:35 | Pulmonology Progress Note ---
Assessment/Plan Assessment/Plan IMPRESSION: 1. Evidence of pulmonary edema. with poor EF 2. COPD with acute exacerbation. 3. Protein-calorie malnutrition, severe. 4. Troponin leak, possible non-STEMI. 5. Chronic renal failure. 6. Hyperglycemia. 7. NSVT PLAN respiratory care without change at present keep negative and monitor monitor clinically for change and congestion orders and nursing notes reviewed monitor for cardiac asthma and worsening bronchospasm low flow oxygen for now aspiration monitoring and monitor monitor orders and labs impression, plan, and exam edited and reviewed in detail care discussed with RN Subjective ROS Limited/Unobtainable: Yes Allergies: Coded Allergies: MIDAZOLAM (Verified Allergy, Unknown, 05/25/18) Subjective findings noted overnight reviewed care noted respiratory escalona stable Objective Last 24 Hour Vital Signs Date Time Temp Pulse Resp B/P (MAP) Pulse Ox O2 Delivery O2 Flow Rate FiO2 06/09/18 08:00 96.4 72 18 93/42 (59) 98 96.4 06/09/18 04:00 73 06/09/18 04:00 97.0 80 24 100/56 (71) 100 97.0 80 06/09/18 00:00 97.7 86 18 95/50 (65) 100 97.7 86 06/09/18 00:00 76 06/08/18 21:40 86 93/51 06/08/18 21:27 88 18 100 Nasal Cannula 2.0 28 06/08/18 21:17 87 22 98 Nasal Cannula 2.0 28 06/08/18 21:00 Nasal Cannula 3.0 06/08/18 20:00 98.1 82 20 93/51 (65) 100 98.1 82 06/08/18 20:00 82 06/08/18 19:21 78 18 Nasal Cannula 2.0 28 06/08/18 19:21 99 Nasal Cannula 2.0 28 06/08/18 19:21 Nasal Cannula 2.0 28 06/08/18 19:13 96.6 77 16 113/59 (77) 100 96.6 77 06/08/18 16:00 96.1 79 20 88/50 (63) 100 96.1 06/08/18 15:56 74 06/08/18 12:59 97.9 80 22 85/45 (58) 99 97.9 06/08/18 12:26 80 06/08/18 10:00 97.9 06/08/18 09:30 97.9 06/08/18 09:13 Nasal Cannula 2.0 28 06/08/18 09:12 99 Nasal Cannula 2.0 28 Intake and Output 06/08/18 06/09/18 19:00 07:00 Intake Total 740 ml 100 ml Balance 740 ml 100 ml Intake Oral 740 ml 100 ml # Bowel Movements 1 Objective GENERAL: A well-developed female, advanced age. NAD HEENT: Negative. NECK: Supple. Without jugular venous distention. LUNGS: moderate breath sounds; no rhonchi; no wheeze; symmetric CARDIAC: Normal S1, S2. Regular rate and rhythm without murmurs, rubs, or gallops. ABDOMEN: Soft, nontender, and nondistended. no HSM; no distention EXTREMITIES: some edema. No cyanosis or clubbing. NEUROLOGIC: Grossly nonfocal, weak, and confused. reviewed and edited Laboratory Tests 06/08/18 19:00: White Blood Count 6.0, Red Blood Count 3.35L, Hemoglobin 10.0L, Hematocrit 33.0L , Mean Corpuscular Volume 99, Mean Corpuscular Hemoglobin 30.0, Mean Corpuscular Hemoglobin Concent 30.4L, Red Cell Distribution Width 19.2H, Platelet Count 80L, Mean Platelet Volume 9.8, Neutrophils (%) (Auto) 64.6, Lymphocytes (%) (Auto) 18.0L, Monocytes (%) (Auto) 12.1H, Eosinophils (%) (Auto ) 3.1H, Basophils (%) (Auto) 2.3H 06/08/18 19:05: Sodium Level 135L, Potassium Level 4.6, Chloride Level 101, Carbon Dioxide Level 27, Anion Gap 7, Blood Urea Nitrogen 27H, Creatinine 4.6H, Estimat Glomerular Filtration Rate , Glucose Level 149H, Calcium Level 8.3L 06/09/18 06:16: White Blood Count 5.1, Red Blood Count 3.30L, Hemoglobin 9.6L, Hematocrit 32.1L , Mean Corpuscular Volume 97, Mean Corpuscular Hemoglobin 29.2, Mean Corpuscular Hemoglobin Concent 30.0L, Red Cell Distribution Width 18.8H, Platelet Count 80L, Mean Platelet Volume 9.1, Neutrophils (%) (Auto) , Lymphocytes (%) (Auto) , Monocytes (%) (Auto) , Eosinophils (%) (Auto) , Basophils (%) (Auto) , Neutrophils % (Manual) [Pending], Lymphocytes % (Manual) [Pending], Platelet Estimate [Pending], Platelet Morphology [Pending] Current Medications Medications (Trade) Dose Ordered Sig/Toby Route PRN Reason Start Time Stop Time Status Last Admin Dose Admin Acetaminophen (Tylenol) 650 mg Q4H PRN ORAL Mild Pain (Pain Scale 1-3) 05/26/18 01:15 06/25/18 01:14 06/08/18 09:30 Albuterol Sulfate (Proventil) 2.5 mg Q4H PRN HHN Shortness of Breath 06/05/18 01:30 06/10/18 01:29 06/08/18 21:17 Aspirin (ASA) 81 mg DAILY ORAL 05/26/18 09:00 06/25/18 08:59 06/08/18 08:13 Carvedilol (Coreg) 3.125 mg EVERY 12 HOURS ORAL 05/27/18 21:00 06/26/18 20:59 06/08/18 21:40 Chlorhexidine Gluconate (Tamara-Hex 2%) 1 applic DAILY@2000 TOPIC 06/03/18 20:00 07/03/18 19:59 06/08/18 21:41 Dextrose (Dextrose 50%) 25 ml STAT PRN IV Hypoglycemia 05/26/18 01:15 06/25/18 01:14 Dextrose (Dextrose 50%) 50 ml STAT PRN IV Hypoglycemia 05/26/18 01:15 06/25/18 01:14 Docusate Sodium (Colace) 100 mg EVERY 12 HOURS ORAL 05/26/18 09:00 06/25/18 08:59 06/08/18 21:41 Epoetin Rodo (Procrit (for ESRD on dialysis)) 7,000 units TUE-TUE-TUE SUBQ 05/26/18 21:00 06/25/18 20:59 06/07/18 21:43 Guaifenesin (Robitussin) 200 mg BID PRN ORAL For Cough 05/27/18 17:00 06/26/18 16:59 06/08/18 09:28 Heparin Sodium (Porcine) (Heparin 5000 units/ml) 5,000 units EVERY 12 HOURS SUBQ 05/26/18 09:00 06/25/18 08:59 06/08/18 08:16 Heparin Sodium (Porcine) (Heparin Sod 1000 units/ml 10ml) 500 unit ONCE PRN IV FOR DIALYSIS USE 06/09/18 14:15 06/09/18 23:59 Heparin Sodium (Porcine) (Heparin) 1,000 unit POSTHD PRN INJ post HD 06/09/18 14:15 06/09/18 23:59 Magnesium Hydroxide (Mom) 30 ml HSPRN PRN ORAL Constipation 05/26/18 01:15 06/25/18 01:14 06/01/18 20:21 Ondansetron HCl (Zofran) 4 mg Q6H PRN IVP Nausea & Vomiting 05/26/18 01:15 06/25/18 01:14 Pantoprazole (Protonix) 40 mg DAILY ORAL 05/26/18 09:00 06/25/18 08:59 06/08/18 08:13 Patient Own Medication (Patient's Own Med) 1 ea BID ORAL 06/02/18 18:00 07/02/18 17:59 06/08/18 17:08 Sodium Chloride 1,000 ml @ 500 mls/hr Q2H PRN IVLG sbp<90 during hd 06/09/18 14:03 07/09/18 14:02 Mohsen Wells MD Jun 09, 2018 08:35
[2018-06-09] MEDS: Docusate 100mg cap ORAL SCH (09:00)
[2018-06-09] MEDS: ENTRESTO ORAL SCH (09:00)
[2018-06-09] MEDS: Heparin 5000 units/ml inj SUBQ SCH (09:00)
[2018-06-09] MEDS: Aspirin Baby 81mg ORAL SCH (09:00)
--- NOTE | 2018-06-09 10:15 | Nephrology Progress Note ---
Assessment/Plan Plan Severe Cardio-Renal Failure. Stable on current frequent HD HD now. Arranging outpatient HD x4 per week -requested from [facility] [place] arranged. DC to SNF Subjective Subjective Less SOB! Hypotensive today! SBP variable Objective Objective Last 24 Hour Vital Signs Date Time Temp Pulse Resp B/P (MAP) Pulse Ox O2 Delivery O2 Flow Rate FiO2 06/09/18 10:01 Nasal Cannula 2.0 06/09/18 09:27 99 Nasal Cannula 2.0 28 06/09/18 09:27 Nasal Cannula 2.0 28 06/09/18 09:26 88 22 Nasal Cannula 2.0 28 06/09/18 08:00 96.4 72 18 93/42 (59) 98 96.4 06/09/18 08:00 71 06/09/18 04:00 73 06/09/18 04:00 97.0 80 24 100/56 (71) 100 97.0 80 06/09/18 00:00 97.7 86 18 95/50 (65) 100 97.7 86 06/09/18 00:00 76 06/08/18 21:40 86 93/51 06/08/18 21:27 88 18 100 Nasal Cannula 2.0 28 06/08/18 21:17 87 22 98 Nasal Cannula 2.0 28 06/08/18 21:00 Nasal Cannula 3.0 06/08/18 20:00 98.1 82 20 93/51 (65) 100 98.1 82 06/08/18 20:00 82 06/08/18 19:21 78 18 Nasal Cannula 2.0 28 06/08/18 19:21 99 Nasal Cannula 2.0 28 06/08/18 19:21 Nasal Cannula 2.0 28 06/08/18 19:13 96.6 77 16 113/59 (77) 100 96.6 77 06/08/18 16:00 96.1 79 20 88/50 (63) 100 96.1 06/08/18 15:56 74 06/08/18 12:59 97.9 80 22 85/45 (58) 99 97.9 06/08/18 12:26 80 Intake and Output 06/08/18 06/09/18 19:00 07:00 Intake Total 740 ml 100 ml Balance 740 ml 100 ml Intake Oral 740 ml 100 ml # Bowel Movements 1 Laboratory Tests 06/08/18 19:00: White Blood Count 6.0, Red Blood Count 3.35L, Hemoglobin 10.0L, Hematocrit 33.0L , Mean Corpuscular Volume 99, Mean Corpuscular Hemoglobin 30.0, Mean Corpuscular Hemoglobin Concent 30.4L, Red Cell Distribution Width 19.2H, Platelet Count 80L, Mean Platelet Volume 9.8, Neutrophils (%) (Auto) 64.6, Lymphocytes (%) (Auto) 18.0L, Monocytes (%) (Auto) 12.1H, Eosinophils (%) (Auto ) 3.1H, Basophils (%) (Auto) 2.3H 06/08/18 19:05: Sodium Level 135L, Potassium Level 4.6, Chloride Level 101, Carbon Dioxide Level 27, Anion Gap 7, Blood Urea Nitrogen 27H, Creatinine 4.6H, Estimat Glomerular Filtration Rate , Glucose Level 149H, Calcium Level 8.3L 06/09/18 06:16: White Blood Count 5.1, Red Blood Count 3.30L, Hemoglobin 9.6L, Hematocrit 32.1L , Mean Corpuscular Volume 97, Mean Corpuscular Hemoglobin 29.2, Mean Corpuscular Hemoglobin Concent 30.0L, Red Cell Distribution Width 18.8H, Platelet Count 80L, Mean Platelet Volume 9.1, Neutrophils (%) (Auto) , Lymphocytes (%) (Auto) , Monocytes (%) (Auto) , Eosinophils (%) (Auto) , Basophils (%) (Auto) , Neutrophils % (Manual) [Pending], Lymphocytes % (Manual) [Pending], Platelet Estimate [Pending], Platelet Morphology [Pending] Height (Feet): 5 Height (Inches): 5.00 Weight (Pounds): 209 Objective BP 87/50 p 82. Asymptomatic. CV RR 2/6 SM Lungs less B wheezes. Abs SNT. BS + E no edema. Cristy Jones MD Jun 09, 2018 10:15
[2018-06-09] MEDS ORDERED: ASPIRIN81 MG ORAL (10:23)
[2018-06-09] MEDS ORDERED: ACETAMINOPHEN325 M1 ORAL (10:23)
[2018-06-09] MEDS ORDERED: GUAIFENESI100 MG/5 M ORAL (10:23)
[2018-06-09] MEDS ORDERED: HIBICLENS118 ML TOPIC (10:23)
[2018-06-09] MEDS ORDERED: COREG3.125 MG ORAL (10:23)
[2018-06-09] MEDS ORDERED: DOK100 M1 ORAL (10:23)
[2018-06-09] MEDS ORDERED: ALBUTEROL2.5 MG/3 M HHN (10:23)
[2018-06-09] MEDS ORDERED: PROTONIX40 MG ORAL (10:23)
[2018-06-09] MEDS ORDERED: MOM30 ML ORAL (10:23)
[2018-06-09] MEDS ORDERED: ENTRESTO 24 MG1 EACH PO (10:52)
[2018-06-09 12:00] VITALS: BP 92/44
[2018-06-09] MEDS ORDERED: Heparin 1000 units/ml 1ml Vial INJ PRN (14:15)
[2018-06-09] MEDS ORDERED: Heparin Sod 1000 units/ml 10ml IV PRN (14:15)
--- NOTE | 2018-06-09 20:45 | Cardiology Progress Note ---
Assessment/Plan Assessment/Plan no significant changes Subjective Subjective remains very short of breath very edematous slightly confused Objective Last 24 Hour Vital Signs Date Time Temp Pulse Resp B/P (MAP) Pulse Ox O2 Delivery O2 Flow Rate FiO2 06/09/18 12:00 82 06/09/18 12:00 97.2 77 22 92/44 (60) 99 97.2 06/09/18 10:09 Nasal Cannula 2.0 06/09/18 10:01 Nasal Cannula 2.0 06/09/18 09:27 99 Nasal Cannula 2.0 28 06/09/18 09:27 Nasal Cannula 2.0 28 06/09/18 09:26 88 22 Nasal Cannula 2.0 28 06/09/18 09:00 Nasal Cannula 3.0 06/09/18 09:00 72 93/42 06/09/18 08:00 96.4 72 18 93/42 (59) 98 96.4 06/09/18 08:00 71 06/09/18 04:00 73 06/09/18 04:00 97.0 80 24 100/56 (71) 100 97.0 80 06/09/18 00:00 97.7 86 18 95/50 (65) 100 97.7 86 06/09/18 00:00 76 06/08/18 21:40 86 93/51 06/08/18 21:27 88 18 100 Nasal Cannula 2.0 28 06/08/18 21:17 87 22 98 Nasal Cannula 2.0 28 06/08/18 21:00 Nasal Cannula 3.0 General Appearance: lethargic EENT: pale conjunctivae Neck: JVD Rhythm: Afib Cardiovascular: bradycardia Respiratory/Chest: crackles/rales Abdomen: distended Extremities: severe edema Intake and Output 06/08/18 06/09/18 19:00 07:00 Intake Total 740 ml 100 ml Balance 740 ml 100 ml Intake Oral 740 ml 100 ml # Bowel Movements 1 Laboratory Tests Test 06/09/18 06:16 White Blood Count 5.1 K/UL (4.8-10.8) Red Blood Count 3.30 M/UL (4.20-5.40) L Hemoglobin 9.6 G/DL (12.0-16.0) L Hematocrit 32.1 % (37.0-47.0) L Mean Corpuscular Volume 97 FL (80-99) Mean Corpuscular Hemoglobin 29.2 PG (27.0-31.0) Mean Corpuscular Hemoglobin Concent 30.0 G/DL (32.0-36.0) L Red Cell Distribution Width 18.8 % (11.6-14.8) H Platelet Count 80 K/UL (150-450) L Mean Platelet Volume 9.1 FL (6.5-10.1) Neutrophils (%) (Auto) % (45.0-75.0) Lymphocytes (%) (Auto) % (20.0-45.0) Monocytes (%) (Auto) % (1.0-10.0) Eosinophils (%) (Auto) % (0.0-3.0) Basophils (%) (Auto) % (0.0-2.0) Differential Total Cells Counted 100 Neutrophils % (Manual) 66 % (45-75) Lymphocytes % (Manual) 19 % (20-45) L Monocytes % (Manual) 10 % (1-10) Eosinophils % (Manual) 3 % (0-3) Basophils % (Manual) 1 % (0-2) Band Neutrophils 1 % (0-8) Platelet Estimate Decreased L Platelet Morphology Normal Hypochromasia 2+ Anisocytosis 2+ Megan Arthur MD Jun 09, 2018 20:45
--- NOTE | 2018-06-12 13:52 | Discharge Summary ---
Zoila Junior PATIENT FINANCIAL COORDINATOR 06/12/18 1352: Discharge Summary Discharge Summary _ DATE OF ADMISSION: 05/26/2018 DATE OF DISCHARGE: 06/09/2018 REASON FOR ADMISSION: 78 years old female with recently diagnosed end-stage renal disease, on hemodialysis, COPD, hypertension, congestive heart failure, cardiomyopathy, pacemaker, chronic atrial fibrillation, crystal-induced arthritis, anemia of chronic kidney disease, was found to be wheezing and short of breath at the facility. Blood pressure was low. Patient also complained of productive cough with moderate amount of white colored sputum for about one week. No fever no chills. No nausea no vomiting. Symptoms worse with exertion. She also reported left arm swelling for last two days. Patient had infected dialysis catheter on the right chest , which was removed. New hemodialysis catheter was placed recently at the left chest. Patient had hemodialysis a day prior to presentation to ED. Upon evaluation in emergency department , blood pressure was low -83/53. Patient required placement on 4 L via nasal cannula and saturated 97% . No leukocytosis, hemoglobin 9.3 hematocrit 29.8, BUN 25 creatinine 5.0 , consistent with known history of end-stage renal disease. Troponin elevated -0.211. EKG revealed no acute ischemic changes Pro- BNP 37373. Total bili 1.1 Chest x-ray revealed mild interstitial congestion and bilateral pleural effusion. Venous duplex left upper extremity revealed no evidence of acute DVT. Abdominal ultrasound revealed chronic liver disease and ascites. Patient admitted with diagnoses end-stage renal failure , on hemodialysis; started about three months ago. congestive heart failure with left ventricular ejection fraction 20%; COPD exacerbation; chronic atrial fibrillation; crystal-induced arthritis; anemia of chronic kidney disease; status post pacemaker. CONSULTANTS: tax commissioner Dr. Arthur pulmonary [facility] COURSE: Patient admitted. Pulmonology and cardiology consults were requested. Supplemental oxygen provided to keep pulse oximetry above 92%. Pulmonary toilet provided. Patient was on IV steroids, which gradually tapered and discontinued prior to discharge. Antitussive provided as needed. DVT prophylaxis provided. According to director of technology, patient had evidence of pulmonary edema. Echocardiogram revealed ejection fraction of 15-20% with global left ventricular hypokinesis and abnormal septal motion (septal dyskinesis). Large pleural effusion. Moderate mitral regurgitation and moderate tricuspid regurgitation. Right ventricular systolic pressure of 40 consistent with mild pulmonary hypertension. Patient noted to have mild elevation in troponin , possibly troponin leak due to on end-stage renal disease, possible NSTEMI. Patient did not complain of chest pain. Patient with evidence of chronic atrial fibrillation. No anticoagulation given previous bleeding and chest wall hematoma. Patient not a candidate for transplant or artificial heart. Heart rate was controlled. Anti- failure regimen was continued with beta dannie and ARB. Supplemental oxygen further titrated down ; prior to discharge patient was on 2 L of oxygen via nasal cannula . Anemia workup revealed anemia of chronic disease due to chronic kidney disease. Patient was on EPO and on IV Venofer. Hemoglobin and hematocrit were closely monitored with goal to keep hemoglobin above 7. Prior to discharge hemoglobin 9.6 hematocrit 32.1. Hemodialysis provided as per braider setter with close monitoring of volumes, cardiorenal parameters, blood pressure, electrolytes. Upon discharge, hemodialysis was ordered 4 times a week as per braider setter with fluid restriction. Pain management was addressed as needed. Hop Picker recommendations implemented in plan of care. Supportive care provided. Bowel regimen instituted. Patient stabilized and was ready for transfer back to [facility] for continuation of care. Overall prognosis poor . 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 DISCHARGE INSTRUCTIONS: Patient was discharged to the [facility] facility. Follow up with medical doctor at the facility. I have been assigned to dictate discharge summary for this account. I was not involved in the patient's management. Cristy Jones MD 06/12/18 1505: Zoila Junior NP Jun 12, 2018 13:52 Cristy Jones MD Jun 12, 2018 15:05
== END 2018-06-09 14:55 | DRG 280 ==
LOC: EDBD 23:47 → EDUNIT# 23:47 → EMR 05-26 00:30 → EDBEDREQ 05-26 00:58 → 2E 05-26 01:15
PROC: 5A1D70Z Performance of Urinary Filtration, Intermittent, Less than 6 Hours Per Day (ICD-10-PCS; principal; 2018-05-26)
DX: I13.2 Hypertensive heart and chronic kidney disease with heart failure and with stage 5 chronic kidney disease, or end stage renal disease (principal); I50.23 Acute on chronic systolic (congestive) heart failure; I21.4 Non-ST elevation (NSTEMI) myocardial infarction; N18.6 End stage renal disease; E43 Unspecified severe protein-calorie malnutrition; J44.1 Chronic obstructive pulmonary disease with (acute) exacerbation; R18.8 Other ascites; I47.1 Supraventricular tachycardia; Z99.2 Dependence on renal dialysis; Z68.34 Body mass index [BMI] 34.0-34.9, adult; I48.2 Chronic atrial fibrillation; D63.1 Anemia in chronic kidney disease; Z95.0 Presence of cardiac pacemaker; Z74.01 Bed confinement status; R73.9 Hyperglycemia, unspecified; I95.9 Hypotension, unspecified; I50.84 End stage heart failure; I42.0 Dilated cardiomyopathy; M11.9 Crystal arthropathy, unspecified
CPT/HCPCS: 36415; 36600; 71045; 76700; 80048; 80053; 82248; 82550; 82553; 82803; 83540; 83550; 83735; 83880; 84484; 85007; 85025; 85610; 85730; 86705; 86709; 86803; 87081; 87340; 93005; 93306; 93971; 94640; 94660; 94664; 94760; 96374; 99285; J7620